=== PATIENT | male | born 1960 | race American Indian/Alaskan Native ===

== ENCOUNTER 2018-06-12 21:42 | Emergency (ER) | payer MEDICARE, MEDICAID, SELFPAY ==
[2018-06-12 22:03] VITALS: BP 121/66; PULSE 86; RESP 16; TEMP 36.9; O2SAT 99
--- NOTE | 2018-06-12 22:17 | ED_ITS ---
HPI - Wound/Laceration General Chief Complaint: Wound/Laceration Stated Complaint: Vericose veins bleeding on right foot Time Seen by Provider: 06/12/18 21:52 Source: patient and EMS Mode of arrival: EMS Limitations: no limitations History of Present Illness HPI narrative: 57-year-old male, former alcohol abuser smoker, morbidly obese with cirrhosis and hypothyroidism presents by EMS for evaluation significant ble eding from a varicosity on his right foot. He uses bandages to protect some of the superficial vessels when he put his feet and tissues. He removed 1 of the bandages and it ripped off the superficial skin causing a significant amount of bleeding. The patient is not anticoagulated but does have a history of liver disease. He is not dizzy nor weak or lightheaded. He has soaked through a significant number of bandages. He has required sutures to close off bleeding vessels in the past. He denies much in the way of pain as he has neuropathy Onset (ago): hour(s) Extremity Location: Right: foot Place: home Patient tetanus UTD: Yes Context: accidental Associated symptoms: none Related Data Home Medications Medication Instructions Recorded Confirmed LOVASTATIN (MEVACOR) 40 mg PO QDAYPM #0 06/22/11 amitriptyline 75 mg PO HS #0 06/22/11 carvedilol [Coreg] 6.25 mg PO BID #0 06/22/11 06/13/18 lisinopril 20 mg PO QDAY #0 06/22/11 potassium chloride [Klor-Con M20] 20 meq PO AMCC #0 06/22/11 06/13/18 furosemide [Lasix] 80 mg PO DAILY #0 08/08/11 06/13/18 lactulose 1 dose PO DIRECTED 06/13/18 06/13/18 levothyroxine 137 mcg PO DAILY 06/13/18 06/13/18 methadone 20 mg PO BEDTIME 06/13/18 06/13/18 morphine 06/13/18 spironolactone 150 mg PO DAILY 06/13/18 06/13/18 triamcinolone acetonide 1 applic TOPICAL DIRECTED 06/13/18 06/13/18 Allergies Allergy/AdvReac Type Severity Reaction Status Date / Time codeine [CODEINE] Allergy Unknown Verified 06/12/18 22:03 Review of Systems Constitutional Denies chills, Denies fever(s), Denies lethargy and Denies weakness Eyes Denies change in vision, Denies eye discharge, Denies irritation and Denies loss of vision ENT Ears, Nose, Mouth, and Throat: Denies change in voice, Denies neck pain and Denies sore throat Cardiovascular Denies chest pain, Denies irregular heart rhythm, Denies lightheadedness, Denies palpitations, Denies dyspnea, Denies dyspnea on exertion and Denies orthopnea Respiratory Denies cough, Denies dyspnea, Denies dyspnea on exertion and Denies wheezing Gastrointestinal Gastrointestinal: Denies abdominal pain, Denies change in bowel habits, Denies diarrhea, Denies nausea and Denies vomiting Genitourinary Denies hematuria, Denies flank pain, Denies urinary incontinence and Denies urinary urgency Musculoskeletal Denies neck pain Integumentary/Breasts Denies pruritus, Denies erythema, Denies rash, Reports sores and Reports wounds Neurologic Denies confusion, Denies loss of vision and Denies weakness Psychiatric Denies anxiety, Denies confusion, Denies depression, Denies homicidal ideation and Denies suicidal ideation Endocrine Denies palpitations Hematologic/Lymphatic Denies easy bruising Allergic/Immunologic Denies wheezing [facility] Medical History Cirrhosis (Acute) Hypothyroid (Acute) Smoker (Acute) Venous stasis dermatitis of both lower extremities (Acute) Social History Smoking Status: Current every day smoker Social History Smoking Status: Current every day smoker Exam Narrative Exam Narrative: GEN: 57-year-old male bit disheveled, morbidly obese and in no obvious or significant distress EYES: Pupils are equal, round, and reactive to light and accommodation. Extraoccular muscles are intact bilaterally. There is no subconjunctival hemorrhage or exudate. CHEST: Lungs are clear to auscultation bilaterally and free of wheezes, rales, or rhonchi. Heart rate is regular rhythm, there are no murmurs, clicks, rubs, or gallops. There is no chest wall tenderness. ABD: Abdomen is soft and nontender. There is no guarding or rebound. Bowel sounds are normal in all 4 quadrants. There is no mass or organomegaly. EXT: Evidence of chronic venous stasis with significant varicosities noted. Patient does have dried area of bleeding on the dorsum of right foot which is currently stopped. SKIN: Warm, pink, and dry. No erythema or rash Initial Vital Signs Initial Vital Signs: Vital Signs Temperature 98.5 F 06/12/18 22:03 Pulse Rate 86 06/12/18 22:03 Respiratory Rate 16 06/12/18 22:03 Blood Pressure 121/66 06/12/18 22:03 Pulse Oximetry 99 06/12/18 22:03 Procedures [facility] [place] Procedure Name of Procedure: Hemostatic suture Side (if applicable): right Location: Dorsum of right foot Technique/Description of procedure performed: One deep biting 2 nylon suture placed and achieve hemostasis after hemostatic gauze fail Course Reevaluation(s) Reevaluation #1: Initially there is very little bleeding noted on exam. It was cleaned and slowly oozing. Hemostatic gauze placed and then dressing wrapped in [place]. He was allowed to rest for approximately 90 minutes and upon ambulating the bleed is started significantly again causing a rather large puddle in the bathroom. At this point a large biting suture (see procedure note) was placed Reevaluation #2: After suture placed the patient was observed again for a period of time and was able to ambulate without recurrence of bleeding. He is discharged with a family member Vital Signs - 8 hr 06/12/18 22:03 Temperature 98.5 F Pulse Rate 86 Respiratory Rate 16 Blood Pressure 121/66 Pulse Oximetry 99 Discharge Plan Departure Patient Disposition: Home Clinical Impression: Bleeding from varicose vein Discharge Date/Time: 06/13/18 00:15 Interventions: ED Discharge Assessment Last Done: 06/13/18 00:14 Instructions: DI for Varicose Veins Activity Restrictions/Additional Instructions: *You have been diagnosed with [bleeding varicosity] *What to do: *Take medications as directed *Follow up with your primary care provider in 2-3 days, call for an appointment. Let them know you were seen in the Emergency Department and that we ask that you be seen in follow up *Return to ER if you should have any new, worsening or concerning symptoms Please keep the wound clean and dry to the best of your ability. Please monitor for signs of infection such as redness to the skin or increasing pain. Have the sutures removed by your doctor in about 7 days. If you are unable to get into your doctor, we would be happy to remove the sutures in that same timeframe. Prescriptions: No Action amitriptyline 75 MG tablet 75 mg PO HS Qty: 0 RF: 0 potassium chloride [Klor-Con M20] 20 MEQ tablet,ER particles/crystals 20 meq PO AMCC Qty: 0 RF: 0 LOVASTATIN (MEVACOR) 40 mg PO QDAYPM Qty: 0 RF: 0 carvedilol [Coreg] 6.25 MG tablet 6.25 mg PO BID Qty: 0 RF: 0 lisinopril 20 MG tablet 20 mg PO QDAY Qty: 0 RF: 0 furosemide [Lasix] 80 MG tablet 80 mg PO DAILY Qty: 0 RF: 0 levothyroxine 137 mcg tablet 137 mcg PO DAILY RF: 0 spironolactone 100 mg tablet 150 mg PO DAILY RF: 0 morphine 30 mg tablet RF: 0 triamcinolone acetonide 0.1 % ointment 1 applic topical DIRECTED RF: 0 lactulose 10 gram/15 mL solution 1 dose PO DIRECTED RF: 0 methadone 10 MG tablet 20 mg PO BEDTIME RF: 0
--- NOTE | 2018-06-12 22:45 | PC.NURSE ---
Bleeding was controlled upon arrival. Pt ambulated to BR and while in BR pts foot began bleeding again. Pt had a large amount of blood on bathroom floor,pt returned to room 4,bleed appeared to be arterial
[2018-06-13 00:14] VITALS: BP 126/79; PULSE 80
== END 2018-06-13 00:15 | disposition home or self-care (01) ==
LOC: ED 23:58
PROVIDERS: Emergency Provider Emergency Medicine
DX: I83.899 Varicose veins of unspecified lower extremity with other complications (principal); S91.301A Unspecified open wound, right foot, initial encounter
CPT/HCPCS: 99282; 99283

== ENCOUNTER 2018-06-13 02:02 | Emergency (ER) | payer MEDICARE, MEDICAID, SELFPAY ==
[2018-06-13 02:10] VITALS: BP 123/67; PULSE 80; RESP 18; TEMP 36.6; O2SAT 97
--- NOTE | 2018-06-13 02:51 | PC.NURSE ---
saw him earlier for same,went home,bleeding starrted again, applied another suture to top of rt foot to control bleeding,denies pain.
--- NOTE | 2018-06-13 02:54 | ED.WOUNDLAC ---
HPI - Wound/Laceration <DO Sawyer Patel Last Filed: 06/13/18 23:49> General Chief Complaint: Wound/Laceration Stated Complaint: bleeding foot Time Seen by Provider: 06/13/18 02:03 Source: patient and family Mode of arrival: EMS History of Present Illness HPI narrative: 57-year-old male returns for a 2nd visit for evaluation of a bleeding artery on right dorsum of his right foot. He was seen and evaluated earlier and had achieved hemostasis after a few deep, biting sutures were placed to. He started bleeding again when he walked about 100 ft from the car to his apartment. He activated EMS for transport. He is not dizzy nor weak or lightheaded. He does not take any blood thinners. Denies chest pain or shortness of breath Onset (ago): hour(s) Extremity Location: Right: foot Place: home Patient tetanus UTD: Yes Associated symptoms: none Related Data Home Medications Medication Instructions Recorded Confirmed LOVASTATIN (MEVACOR) 40 mg PO QDAYPM #0 06/22/11 amitriptyline 75 mg PO HS #0 06/22/11 carvedilol [Coreg] 6.25 mg PO BID #0 06/22/11 06/13/18 lisinopril 20 mg PO QDAY #0 06/22/11 potassium chloride [Klor-Con M20] 20 meq PO AMCC #0 06/22/11 06/13/18 furosemide [Lasix] 80 mg PO DAILY #0 08/08/11 06/13/18 lactulose 1 dose PO DIRECTED 06/13/18 06/13/18 levothyroxine 137 mcg PO DAILY 06/13/18 06/13/18 methadone 20 mg PO BEDTIME 06/13/18 06/13/18 morphine 06/13/18 spironolactone 150 mg PO DAILY 06/13/18 06/13/18 triamcinolone acetonide 1 applic TOPICAL DIRECTED 06/13/18 06/13/18 Allergies Allergy/AdvReac Type Severity Reaction Status Date / Time codeine [CODEINE] Allergy Unknown Verified 06/12/18 22:03 Review of Systems <DO Sawyer Patel Last Filed: 06/13/18 23:49> Constitutional Denies chills, Denies fever(s), Denies lethargy and Denies weakness Eyes Denies change in vision, Denies eye discharge, Denies irritation and Denies loss of vision ENT Ears, Nose, Mouth, and Throat: Denies change in voice, Denies neck pain and Denies sore throat Cardiovascular Denies chest pain, Denies irregular heart rhythm, Denies lightheadedness, Denies palpitations, Denies dyspnea, Denies dyspnea on exertion and Denies orthopnea Respiratory Denies cough, Denies dyspnea, Denies dyspnea on exertion and Denies wheezing Gastrointestinal Gastrointestinal: Denies abdominal pain, Denies change in bowel habits, Denies diarrhea, Denies nausea and Denies vomiting Genitourinary Denies hematuria, Denies flank pain, Denies urinary incontinence and Denies urinary urgency Musculoskeletal Denies neck pain Integumentary/Breasts Denies pruritus, Denies erythema, Denies rash and Reports wounds Neurologic Denies confusion, Denies loss of vision and Denies weakness Psychiatric Denies anxiety, Denies confusion, Denies depression, Denies homicidal ideation and Denies suicidal ideation Endocrine Denies palpitations Hematologic/Lymphatic Denies easy bruising Allergic/Immunologic Denies wheezing PFSH <Donta Zabala DO - Last Filed: 06/13/18 23:49> Medical History (Updated 06/13/18 @ 06:57 by Rashid Gerber MD) Cirrhosis (Acute) Hypothyroid (Acute) Smoker (Acute) Venous stasis dermatitis of both lower extremities (Acute) Social History Smoking Status: Current every day smoker Social History Smoking Status: Current every day smoker Exam <Donta Zabala DO - Last Filed: 06/13/18 23:49> Narrative Exam Narrative: GEN: 57-year-old male, morbidly obese, no significant distress EYES: Pupils are equal, round, and reactive to light and accommodation. Extraoccular muscles are intact bilaterally. There is no subconjunctival hemorrhage or exudate. CHEST: Lungs are clear to auscultation bilaterally and free of wheezes, rales, or rhonchi. Heart rate is regular rhythm, there are no murmurs, clicks, rubs, or gallops. There is no chest wall tenderness. ABD: Abdomen is soft and nontender. There is no guarding or rebound. Bowel sounds are normal in all 4 quadrants. There is no mass or organomegaly. EXT: Wound dressing of right foot saturated in fresh blood. Dressing removed and moderate amount persistent bleeding from the skin wound SKIN: Warm, pink, and dry. No erythema or rash Initial Vital Signs Initial Vital Signs: Vital Signs Temperature 97.9 F 06/13/18 02:10 Pulse Rate 80 06/13/18 02:10 Respiratory Rate 18 06/13/18 02:10 Blood Pressure 123/67 06/13/18 02:10 Pulse Oximetry 97 06/13/18 02:10 <Itzel Liang, DO - Last Filed: 06/13/18 18:59> Initial Vital Signs Initial Vital Signs: Vital Signs Temperature 97.9 F 06/13/18 02:10 Pulse Rate 80 06/13/18 02:10 Respiratory Rate 18 06/13/18 02:10 Blood Pressure 123/67 06/13/18 02:10 Pulse Oximetry 97 06/13/18 02:10 Procedures <Donta Zabala DO - Last Filed: 06/13/18 23:49> [facility] [place] Procedure Name of Procedure: suture for hemostasis only Side (if applicable): right Time out performed: No Technique/Description of procedure performed: 2 large deep sutures placed Patient tolerated procedure: Well Complications: none Additional Comments: hemostasis achieved Course <Donta Zabala DO - Last Filed: 06/13/18 23:49> Orders Ordered: Discontinued Medications Morphine Sulfate (Morphine) 4 mg SUBCUT NOW ONE Stop: 06/13/18 06:43 Last Admin: 06/13/18 06:53 Dose: 4 mg Reevaluation(s) Reevaluation #1: patient allowed to sit with elevated foot for 90 minutes, nearly immediately upon putting foot down and ambulating he began bleeding again. At this point foot was elevated and gen surgery called. Will see patient at bedside Consultations Consultation #1: call to Dr. Munoz. Please see his note for details. Recommends keeping patient foot elevated until 0830 then ambulation trial Consultation #2: call to [facility] to achieve close follow up for hemorrhaging right foot varicosity with multiple thin-walled superficial varicosities. Perico at [facility] is happy to help coordinate close follow up and recommends [place]s or a 3 layer if possible Time: 08:07 Vital Signs - 8 hr 06/13/18 11:01 Pulse Rate 60 Respiratory Rate 16 Blood Pressure 120/73 Pulse Oximetry 93 <Itzel Liang DO - Last Filed: 06/13/18 18:59> Orders Ordered: Discontinued Medications Morphine Sulfate (Morphine) 4 mg SUBCUT NOW ONE Stop: 06/13/18 06:43 Last Admin: 06/13/18 06:53 Dose: 4 mg Vital Signs - 8 hr 06/13/18 11:01 Pulse Rate 60 Respiratory Rate 16 Blood Pressure 120/73 Pulse Oximetry 93 MDM - Wound/Laceration <Donta Zabala DO - Last Filed: 06/13/18 23:49> Lab Data Result diagrams: 06/13/18 04:30 06/13/18 04:30 Lab Results 06/13/18 06/13/18 06/13/18 Range/Units 04:30 04:30 04:30 WBC 10.2 (4.5-11.0) X10^3/uL RBC 4.43 L (4.5-5.9) X10^6/uL Hgb 12.9 L (13.5-17.5) g/dL Hct 38.3 L (41-53) % MCV 86.6 (80-100) fL MCH 29.2 (26-34) PG MCHC 33.7 (30-36) % RDW 15.1 H (11.6-14.8) % Plt Count 188 (150-400) X10^3/uL Neut % (Auto) 83.2 H (50-75) % Lymph % (Auto) 7.0 L (25-40) % [place] % (Auto) 8.8 (3-14) % Eos % (Auto) 0.3 L (2-4) % Baso % (Auto) 0.7 (0-2) % Neut # (Auto) 8500 H (6588-4027) /uL Lymph # (Auto) 700 L (8510-1373) /uL [place] # (Auto) 900 (0-900) /uL Eos # (Auto) 0 (0-450) /uL Baso # (Auto) 100 (0-100) /uL PT 16.3 H (10.1-12.7) SECONDS INR 1.4 H (0.9-1.3) APTT (26.4-36.2) SECONDS Sodium 130 L (137-145) mmol/L Potassium 5.3 H (3.4-5.1) mmol/L Chloride 96 L (98-107) mmol/L Carbon Dioxide 21 L (22-32) mmol/L BUN 23 H (9-20) mg/dL Creatinine 0.80 (0.66-1.25) mg/dL Estimated GFR > 60.0 (>60) mL/min BUN/Creatinine Ratio 28.8 H (6-22) Glucose 103 H (70-100) mg/dL Calcium 9.2 (8.4-10.2) mg/dL Total Bilirubin 1.5 H (0.2-1.3) mg/dL AST 31 (17-59) IU/L ALT 18 L (21-72) IU/L Alkaline Phosphatase 205 H (38-126) U/L Total Protein 8.4 H (6.3-8.2) g/dL Albumin 3.9 (3.5-5.0) g/dL Globulin 4.5 H (1.7-4.1) g/dL Albumin/Globulin Ratio 0.9 L (1.0-2.8) TSH (0.47-4.68) uIU/mL 06/13/18 06/13/18 Range/Units 04:30 05:15 WBC (4.5-11.0) X10^3/uL RBC (4.5-5.9) X10^6/uL Hgb (13.5-17.5) g/dL Hct (41-53) % MCV (80-100) fL MCH (26-34) PG MCHC (30-36) % RDW (11.6-14.8) % Plt Count (150-400) X10^3/uL Neut % (Auto) (50-75) % Lymph % (Auto) (25-40) % [place] % (Auto) (3-14) % Eos % (Auto) (2-4) % Baso % (Auto) (0-2) % Neut # (Auto) (7197-5277) /uL Lymph # (Auto) (9315-2051) /uL [place] # (Auto) (0-900) /uL Eos # (Auto) (0-450) /uL Baso # (Auto) (0-100) /uL PT (10.1-12.7) SECONDS INR (0.9-1.3) APTT 27 (26.4-36.2) SECONDS Sodium (137-145) mmol/L Potassium (3.4-5.1) mmol/L Chloride (98-107) mmol/L Carbon Dioxide (22-32) mmol/L BUN (9-20) mg/dL Creatinine (0.66-1.25) mg/dL Estimated GFR (>60) mL/min BUN/Creatinine Ratio (6-22) Glucose (70-100) mg/dL Calcium (8.4-10.2) mg/dL Total Bilirubin (0.2-1.3) mg/dL AST (17-59) IU/L ALT (21-72) IU/L Alkaline Phosphatase (38-126) U/L Total Protein (6.3-8.2) g/dL Albumin (3.5-5.0) g/dL Globulin (1.7-4.1) g/dL Albumin/Globulin Ratio (1.0-2.8) TSH 13.90 H (0.47-4.68) uIU/mL <Itzel Liang, DO - Last Filed: 06/13/18 18:59> Lab Data Attestation: I reviewed the patient's lab results. Lab Results 06/13/18 06/13/18 06/13/18 Range/Units 04:30 04:30 04:30 WBC 10.2 (4.5-11.0) X10^3/uL RBC 4.43 L (4.5-5.9) X10^6/uL Hgb 12.9 L (13.5-17.5) g/dL Hct 38.3 L (41-53) % MCV 86.6 (80-100) fL MCH 29.2 (26-34) PG MCHC 33.7 (30-36) % RDW 15.1 H (11.6-14.8) % Plt Count 188 (150-400) X10^3/uL Neut % (Auto) 83.2 H (50-75) % Lymph % (Auto) 7.0 L (25-40) % [place] % (Auto) 8.8 (3-14) % Eos % (Auto) 0.3 L (2-4) % Baso % (Auto) 0.7 (0-2) % Neut # (Auto) 8500 H (9311-5661) /uL Lymph # (Auto) 700 L (9675-4386) /uL [place] # (Auto) 900 (0-900) /uL Eos # (Auto) 0 (0-450) /uL Baso # (Auto) 100 (0-100) /uL PT 16.3 H (10.1-12.7) SECONDS INR 1.4 H (0.9-1.3) APTT (26.4-36.2) SECONDS Sodium 130 L (137-145) mmol/L Potassium 5.3 H (3.4-5.1) mmol/L Chloride 96 L (98-107) mmol/L Carbon Dioxide 21 L (22-32) mmol/L BUN 23 H (9-20) mg/dL Creatinine 0.80 (0.66-1.25) mg/dL Estimated GFR > 60.0 (>60) mL/min BUN/Creatinine Ratio 28.8 H (6-22) Glucose 103 H (70-100) mg/dL Calcium 9.2 (8.4-10.2) mg/dL Total Bilirubin 1.5 H (0.2-1.3) mg/dL AST 31 (17-59) IU/L ALT 18 L (21-72) IU/L Alkaline Phosphatase 205 H (38-126) U/L Total Protein 8.4 H (6.3-8.2) g/dL Albumin 3.9 (3.5-5.0) g/dL Globulin 4.5 H (1.7-4.1) g/dL Albumin/Globulin Ratio 0.9 L (1.0-2.8) TSH (0.47-4.68) uIU/mL 06/13/18 06/13/18 Range/Units 04:30 05:15 WBC (4.5-11.0) X10^3/uL RBC (4.5-5.9) X10^6/uL Hgb (13.5-17.5) g/dL Hct (41-53) % MCV (80-100) fL MCH (26-34) PG MCHC (30-36) % RDW (11.6-14.8) % Plt Count (150-400) X10^3/uL Neut % (Auto) (50-75) % Lymph % (Auto) (25-40) % [place] % (Auto) (3-14) % Eos % (Auto) (2-4) % Baso % (Auto) (0-2) % Neut # (Auto) (0798-6444) /uL Lymph # (Auto) (7281-5089) /uL [place] # (Auto) (0-900) /uL Eos # (Auto) (0-450) /uL Baso # (Auto) (0-100) /uL PT (10.1-12.7) SECONDS INR (0.9-1.3) APTT 27 (26.4-36.2) SECONDS Sodium (137-145) mmol/L Potassium (3.4-5.1) mmol/L Chloride (98-107) mmol/L Carbon Dioxide (22-32) mmol/L BUN (9-20) mg/dL Creatinine (0.66-1.25) mg/dL Estimated GFR (>60) mL/min BUN/Creatinine Ratio (6-22) Glucose (70-100) mg/dL Calcium (8.4-10.2) mg/dL Total Bilirubin (0.2-1.3) mg/dL AST (17-59) IU/L ALT (21-72) IU/L Alkaline Phosphatase (38-126) U/L Total Protein (6.3-8.2) g/dL Albumin (3.5-5.0) g/dL Globulin (1.7-4.1) g/dL Albumin/Globulin Ratio (1.0-2.8) TSH 13.90 H (0.47-4.68) uIU/mL MDM Narrative Medical decision making narrative: Patient was ambulated waiting the entire department and standing for about 20 minutes without any recurrence of bleeding. Area was cleansed and an Maribel boot dressing was applied. Patient was given a contact information for the vascular Clinic for follow-up for sclerotherapy and treatment which he is familiar with. He was also given instructions to return if he had any worsening. Patient is comfortable with this plan. We also discussed his lab work and his thyroid. He states he has missed 1 or 2 doses here and there but has been taking it regularly. Discussed to increase his dose and he is supposed to follow up with his physician this week for recheck of all of his labs. Discharge Plan Departure Patient Disposition: Home Clinical Impression: Bleeding from varicose vein Discharge Date/Time: 06/13/18 10:40 Interventions: ED Discharge Assessment Last Done: 06/13/18 11:01 Instructions: DI for Laceration Repair Activity Restrictions/Additional Instructions: *You have been diagnosed with [bleeding varicosity of right foot] *What to do: * continue to take medications as directed *Call V[facility] at [place] today for close follow up. [phone] *Return to ER if you should have any new, worsening or concerning symptoms, such as [ recurrence of bleeding] You thyroid or TSH level is elevated, increase your levothyroxine to 100mcg or two tablets daily and discuss with your physician for recheck of your TSH and to adjust your medications as needed. Prescriptions: No Action amitriptyline 75 MG tablet 75 mg PO HS Qty: 0 RF: 0 potassium chloride [Klor-Con M20] 20 MEQ tablet,ER particles/crystals 20 meq PO AMCC Qty: 0 RF: 0 LOVASTATIN (MEVACOR) 40 mg PO QDAYPM Qty: 0 RF: 0 carvedilol [Coreg] 6.25 MG tablet 6.25 mg PO BID Qty: 0 RF: 0 lisinopril 20 MG tablet 20 mg PO QDAY Qty: 0 RF: 0 furosemide [Lasix] 80 MG tablet 80 mg PO DAILY Qty: 0 RF: 0 levothyroxine 137 mcg tablet 137 mcg PO DAILY RF: 0 spironolactone 100 mg tablet 150 mg PO DAILY RF: 0 morphine 30 mg tablet RF: 0 triamcinolone acetonide 0.1 % ointment 1 applic topical DIRECTED RF: 0 lactulose 10 gram/15 mL solution 1 dose PO DIRECTED RF: 0 methadone 10 MG tablet 20 mg PO BEDTIME RF: 0 Referrals: Kristian Clancy MD [Non-Staff] -
[2018-06-13 03:34] VITALS: BP 105/82; PULSE 93; RESP 20; O2SAT 93
[2018-06-13 04:40] LABS: Add Manual Diff / Slide Review NO; Basophils Absolute Auto 100 /uL (0-100); Basophils Percent Auto 0.7 % (0-2); Eosinophils Absolute Auto 0 /uL (0-450); Eosinophils Percent Auto 0.3 % (2-4); Hematocrit 38.3 % (41-53); Hemoglobin 12.9 g/dL (13.5-17.5); Lymphocytes Absolute Auto 700 /uL (1100-4500); Mean Corpuscular HGB Conc 33.7 % (30-36); Mean Corpuscular Hemoglobin 29.2 PG (26-34); Mean Corpuscular Volume 86.6 fL (80-100); Monocytes Absolute Auto 900 /uL (0-900); Monocytes Percent Auto 8.8 % (3-14); Neutrophils Absolute Auto 8500 /uL (1500-7000); Neutrophils Percent Auto 83.2 % (50-75); Platelet Count 188 X10^3/uL (150-400); Red Blood Cell Count 4.43 X10^6/uL (4.5-5.9); Red Cell Distribution Width 15.1 % (11.6-14.8); White Blood Cell Count 10.2 X10^3/uL (4.5-11.0)
[2018-06-13 04:44] VITALS: BP 104/78; PULSE 81; RESP 20; O2SAT 100
[2018-06-13 04:47] LABS: PTT Partial Thromboplastin Tim 27 SECONDS (26.4-36.2)
[2018-06-13 04:50] LABS: Alanine Aminotransferase 18 IU/L (21-72); Albumin 3.9 g/dL (3.5-5.0); Albumin Globulin Ratio 0.9 (1.0-2.8); Alkaline Phosphatase 205 U/L (38-126); Aspartate Aminotransferase 31 IU/L (17-59); BUN Creatinine Ratio 28.8 (6-22); Bilirubin Total 1.5 mg/dL (0.2-1.3); Blood Urea Nitrogen 23 mg/dL (9-20); Calcium 9.2 mg/dL (8.4-10.2); Carbon Dioxide 21 mmol/L (22-32); Chloride 96 mmol/L (98-107); Estimated Glomerular Filt Rate > 60.0 mL/min (>60); Globulin 4.5 g/dL (1.7-4.1); Glucose 103 mg/dL (70-100); HEMOLYSIS 18 (0-50); Sodium 130 mmol/L (137-145); Total Protein 8.4 g/dL (6.3-8.2)
[2018-06-13 04:52] LABS: INR 1.4 (0.9-1.3); Prothrombin Time 16.3 SECONDS (10.1-12.7)
[2018-06-13 05:24] LABS: Potassium 5.3 mmol/L (3.4-5.1)
[2018-06-13 05:30] VITALS: BP 122/75; PULSE 82
--- NOTE | 2018-06-13 06:30 | PC.NURSE ---
Assisted general surgeon with procedure at pt's bedside. Pt tolerated well.
--- NOTE | 2018-06-13 06:45 | PM.CN ---
History of Present Illness Date Patient Seen: 06/13/18 Time Patient Seen: 06:00 Chief complaint: bleeding foot Reason for consult: persistently bleeding vericosities on dorsal R foot Requesting provider: Donta Zabala Narrative: 57 yo man with hx of morbid obesity, hypothyroidism and etoh cirrhosis no longer active drinker with known hx of chronic LE venous hypertention and marked dialated varicosities of the feet and ankles. He presented to the evening by EMS after a sacular venous salazar/verricosity on the distal aspect of his R doral foot ruptured. He had removed a small bandage that was protecting the area. Bleeding was by report significant. In the ER there was brisk bleeding from what was initially thought to be an arterial source. Attempts at direct pressure were successful but with release of pressure and pt standing upright would restart. Eventually total of 2, 2-0 nylon hemostatic sutures to the area provided control. The pt returned home but several hrs later - restarted bleeding from the same site and returend to the ER. Pt reports he has had multiple vein ruptures in the past - all have spontaneoulsy clotted at home. He did see a vascular surgeon some time ago about his veins but was lost to follow up. He wears compression stockings but is unsure of there pressure amounts, reports they are very tight. [facility] Medical History (Updated 06/13/18 @ 06:57 by Rashid Gerber MD) Cirrhosis (Acute) Hypothyroid (Acute) Smoker (Acute) Venous stasis dermatitis of both lower extremities (Acute) Social History Smoking Status: Current every day smoker Social History Smoking Status: Current every day smoker Meds Home Medications Medication Instructions Recorded Confirmed Type LOVASTATIN (MEVACOR) 40 mg PO QDAYPM #0 06/22/11 History amitriptyline 75 mg PO HS #0 06/22/11 History carvedilol [Coreg] 6.25 mg PO BID #0 06/22/11 History levothyroxine [Synthroid] 0.05 mg PO QDAY #0 06/22/11 History lisinopril 20 mg PO QDAY #0 06/22/11 History potassium chloride [Klor-Con M20] 20 meq PO [facility] #0 06/22/11 History furosemide [Lasix] 100 mg PO QDAY #0 08/08/11 History methadone 10 mg PO QHS #10 08/20/11 Rx Allergies Allergy/AdvReac Type Severity Reaction Status Date / Time codeine [CODEINE] Allergy Unknown Verified 06/12/18 22:03 Review of Systems Constitutional Constitutional: Denies fever(s) Eyes Eyes: Denies bulging eyes ENT Ears, Nose, Mouth, and Throat: No lip swelling Cardiovascular Cardiovascular: Denies generalize swelling Respiratory Respiratory: Denies stridor Gastrointestinal Gastrointestinal: Denies coffee ground emesis Musculoskeletal Musculoskeletal: Denies loss of height Integumentary/Breasts Skin/Breast: Denies wounds Neurologic Neurologic: Denies abnormal speech and Denies confusion Psychiatric Psychiatric: Denies confusion Endocrine Endocrine: Denies deepening of the voice Hematologic/Lymphatic Hematologic/Lymphatic: Denies lymphadenopathy Allergic/Immunologic Allergic/Immunologic: Denies lip swelling Exam Vital Signs (past 8 hours): - 06/13/18 02:10 06/13/18 03:34 06/13/18 04:44 Temperature 97.9 F Pulse Rate 80 93 H 81 Respiratory Rate 18 20 20 Blood Pressure [Right Arm] 123/67 105/82 104/78 Pulse Oximetry 97 93 100 Oxygen Delivery Method Room Air Narrative Exam Narrative: Obese man in NAD, smells of cig smoke. Const General: cooperative and healthy appearing Orientation: alert [facility] Head: normal to inspection Nose: nares normal Mouth: oral mucosae normal and lip normal Eyes Eyelids: eyelids normal Conjunctivae: conjunctivae normal Sclera: sclerae normal Neck Neck: supple and other (No thyromegally) Chest Chest: other (LCTAB , regular respiratory effort) Cardio Rhythm: regular rhythm GI Other: abdomen soft , non tender Skin General: no rashes or lesions noted Neuro General: alert and awake Extrem Other: There are extensive superficial vericose veins of the bilteral LE with reynaldo discoloration of legs and feet below the knees. On the R foot there are extensive dialated veins up to 5mm with thining of the skin over a half dozen venous lakes. Two nylon sutures overly the 3rd ray just proximal of the MTP joint on the dorsum of the R foot. There is a small amount of bleeding with disturbing the area. Palpating the vericosites they are tense. Using US- 4 feeding veins appeared to connect like wheel spokes to the central area of bleeding these were 3-4mm. there was flow by doppler in each Psych Appearance: grossly normal Affect: normal affect Objective Labs Result Diagrams: 06/13/18 04:30 06/13/18 04:30 Labs: Laboratory Results - last 24 hr 06/13/18 06/13/18 06/13/18 04:30 04:30 04:30 WBC 10.2 RBC 4.43 L Hgb 12.9 L Hct 38.3 L MCV 86.6 MCH 29.2 MCHC 33.7 RDW 15.1 H Plt Count 188 Neut % (Auto) 83.2 H Lymph % (Auto) 7.0 L Burke % (Auto) 8.8 Eos % (Auto) 0.3 L Baso % (Auto) 0.7 Neut # (Auto) 8500 H Lymph # (Auto) 700 L Burke # (Auto) 900 Eos # (Auto) 0 Baso # (Auto) 100 PT 16.3 H INR 1.4 H APTT Sodium 130 L Potassium 5.3 H Chloride 96 L Carbon Dioxide 21 L BUN 23 H Creatinine 0.80 Estimated GFR > 60.0 BUN/Creatinine Ratio 28.8 H Glucose 103 H Calcium 9.2 Total Bilirubin 1.5 H AST 31 ALT 18 L Alkaline Phosphatase 205 H Total Protein 8.4 H Albumin 3.9 Globulin 4.5 H Albumin/Globulin Ratio 0.9 L TSH 06/13/18 06/13/18 04:30 05:15 WBC RBC Hgb Hct MCV MCH MCHC RDW Plt Count Neut % (Auto) Lymph % (Auto) Burke % (Auto) Eos % (Auto) Baso % (Auto) Neut # (Auto) Lymph # (Auto) Burke # (Auto) Eos # (Auto) Baso # (Auto) PT INR APTT 27 Sodium Potassium Chloride Carbon Dioxide BUN Creatinine Estimated GFR BUN/Creatinine Ratio Glucose Calcium Total Bilirubin AST ALT Alkaline Phosphatase Total Protein Albumin Globulin Albumin/Globulin Ratio TSH 13.90 H Assessment & Plan Assessment & Plan narrative: 57 yo man with persistently bleeding ruptured varicose vein on the dorsum of the R foot in the setting of mild coagulopathy. Recs: Venous ligation - with 2% lidocaine with epi for anesthesia - I ligated each of the feeding veins to the area of bleeing with a total of 5 figure of 8 surtures. Caprosin 2-0. The venous pressure in the original bleeding vessil was greatly improved by palpation and all bleeding stopped. Wraped RLE below knee in compression bandage. - Should keep elevated for 2hrs then trail of ambulation - Suture removal in 2 weeks PMD - limit activity over next 2 days to allow clot to mature - Referal of pt to vascular surgeon will likely benifit from venous sclerosis/endovascular ablation. Given extensive venous dermatitis would not recommend open vein stripping Pt appears hypothyroid with TSH of nearly 14, hypothyroidism contributes to poor clot formation this in addition to etoh cirrhosis would seem to contribute to pts persitent bleeding - correct hypothyroidism, needs increased levothyroxin dosing
[2018-06-13] MEDS: MORPHINE 4 MG/ML INJ SUBCUT (06:53)
[2018-06-13 09:50] VITALS: BP 121/72; PULSE 84; RESP 18; O2SAT 93
--- NOTE | 2018-06-13 10:49 | PC.NURSE ---
pt dressing paste bandage, kurlexjuan. instructions provided by wound care clinic.
[2018-06-13 11:01] VITALS: BP 120/73; PULSE 60; RESP 16; O2SAT 93
== END 2018-06-13 10:40 | disposition home or self-care (01) ==
PROVIDERS: Emergency Provider Emergency Medicine
DX: I83.899 Varicose veins of unspecified lower extremity with other complications (principal); S91.301A Unspecified open wound, right foot, initial encounter
CPT/HCPCS: 36415; 80053; 84443; 85025; 85610; 85730; 96372; 99283; 99284; J2270

== ENCOUNTER → 2018-07-22 14:35 | Outpatient (CLI) | payer MEDICARE, MEDICAID, SELFPAY ==
--- NOTE | 2018-07-22 | DI.US.S_ITS ---
PROCEDURE: US ABDOMEN COMPLETE INDICATIONS: ALCOHOLIC CIRRHOSIS TECHNIQUE: Real-time scanning was performed of the abdominal and retroperitoneal organs, with image documentation. COMPARISON: [facility], , ABDOMEN COMPLETE, 08/19/2014, 11:32. [facility], US, ABDOMEN LIMITED, 03/31/2015, 14:54. FINDINGS: Liver: Liver is normal in size and homogeneous in echotexture. Liver demonstrates subtle nodular contour consistent with cirrhosis. Gallbladder: There are small gallstones. No gallbladder wall thickening, pericholecystic fluid or sonographic Duque's sign. Biliary ducts: Intrahepatic bile ducts are non-dilated. Extrahepatic bile duct caliber measures 5.7 mm. Normal is 6-7 mm or less in diameter, or 10 mm or less post-cholecystectomy. Pancreas: Obscured by overlying bowel gas. Spleen: Spleen is prominent measuring 13 cm in length. Kidneys: Kidneys are normal in size and echotexture. Right kidney measures 12.2 cm long; left kidney measures 11.2 cm long. No hydronephrosis or nephrolithiasis. No solid masses. Aorta: Abdominal aorta is obscured by overlying bowel gas. Iliacs: Proximal common iliac arteries are obscured by overlying bowel gas. IVC: Intrahepatic inferior vena cava is patent. Miscellaneous: Small to moderate amount of free fluid in the right abdomen. IMPRESSION: 1. Liver demonstrates subtle nodular contour consistent with cirrhosis. 2. Cholelithiasis with multiple small mobile stones. 3. Mild splenomegaly. 4. A small to moderate amount of ascites. 5. Pancreas, aorta and iliac arteries are obscured by overlying bowel gas. Dictated by: Kory Kiser M.D. on 07/22/2018 at 16:04 Approved by: Kory Kiser M.D. on 07/22/2018 at 16:09
== END ==
PROVIDERS: PCP Internal Medicine; Visit Provider Internal Medicine
DX: K70.31 Alcoholic cirrhosis of liver with ascites (principal); K80.20 Calculus of gallbladder without cholecystitis without obstruction; R16.1 Splenomegaly, not elsewhere classified
CPT/HCPCS: 76700

== ENCOUNTER 2019-02-13 11:18 | Inpatient (IN) | payer MEDICARE, SELFPAY ==
[2019-02-13] VITALS (28 sets, daily range): BP systolic 78–123; BP diastolic 49–76; PULSE 80–93; RESP 11–22; TEMP 36.7–37; O2SAT 90–100; BMI 22.1
--- NOTE | 2019-02-13 11:44 | DI.RAD.S_ITS ---
PROCEDURE: XR CHEST 1V INDICATIONS: suspected sepsis TECHNIQUE: One view of the chest was acquired. COMPARISON: [facility], , CHEST 2 VIEW, 06/22/2011, 10:46. FINDINGS: Surgical changes and devices: None. Lungs and pleura: Large right pneumothorax. No contralateral mediastinal shift. No gross pulmonary infiltrates. Mediastinum: Mediastinal contours appear normal. Heart size is normal. Bones and chest wall: No suspicious bony lesions. Overlying soft tissues appear unremarkable. IMPRESSION: Large right pneumothorax. Comment: Findings were discussed with Itzel Randle FIGURE REFINISHER AND REPAIRER on 02/13/19 at 1308 hrs. Dictated by: Rj Stevenson M.D. on 02/13/2019 at 13:06 Approved by: Rj Stevenson M.D. on 02/13/2019 at 13:09
--- NOTE | 2019-02-13 12:28 | PC.NURSE ---
very strong odor from lower legs, drsg on saturated, pt lower leg with swelling, discoloration,swelling, buttom of left heel, ischemic (black), irrigated with large amount of warm saline, scrubbed pt claims +feeling , and pt able to wiggle all the toes. right hip with purple bruising, pt states, he has fallen buttocks with open skin red swelling, also with scoriated skin, left buttocks with large area of purple blackish bruisind. thoracic area with bruising pt cooperative with care.
--- NOTE | 2019-02-13 12:33 | PC.NURSE ---
3 staff assist with undressing, cleaning the whole body and new sheet,gown,warm blankets.
--- NOTE | 2019-02-13 13:00 | ED_ITS ---
HPI - Chest Pain General Chief Complaint: Chest Pain Stated Complaint: Chest Pain Time Seen by Provider: 02/13/19 12:42 Source: EMS Mode of arrival: EMS Limitations: no limitations History of Present Illness HPI narrative: This is a 58-year-old male comes to the emergency department with complaint of chest pain that started about 10:30 this morning he states almost gone. So states he woke up in a cold sweat knee felt very short of breath. He felt a little lightheaded but no syncope. Patient states he did have any coughing, had no fevers or chills no cold cough or congestion. He states that sitting in the emergency department he feels fine. No nausea, no vomiting no issues with bowel movements or urination. Fever. Patient has extensive swelling and skin changes in his lower extremities. He states that they've been bad for a while. He states the left leg is worse than the right. Patient states he follows with Dr. cameron but he left the area and has not reestablished. He has a history of COPD states no home O2. Congestive heart failure and cirrhosis secondary to alcohol. Patient states he quit drinking alcohol in 2008. He denies any hypertension dyslipidemia diabetes. No thinners. States he has had a back surgery in the past. He describes some tobacco use, occasional THC but no other illicit. He lives at home with his niece and nephew and has had multiple falls recently. Patient states he has been taking his medications regularly although his primary care has left. Related Data Home Medications Medication Instructions Recorded Confirmed carvedilol [Coreg] 6.25 mg PO BID #0 06/22/11 02/13/19 furosemide [Lasix] 80 mg PO DAILY #0 08/08/11 02/13/19 lactulose 1 dose PO DIRECTED 06/13/18 02/13/19 levothyroxine 137 mcg PO DAILY 06/13/18 02/13/19 methadone 10 mg PO Q12H 06/13/18 02/13/19 morphine 15 mg PO Q8H PRN 06/13/18 02/13/19 spironolactone 200 mg PO DAILY 06/13/18 02/13/19 triamcinolone acetonide 1 applic TOPICAL DIRECTED 06/13/18 02/13/19 Allergies Allergy/AdvReac Type Severity Reaction Status Date / Time codeine [CODEINE] Allergy Unknown Verified 02/13/19 12:22 Review of Systems Review of Systems ROS Unobtainable: All systems reviewed & are unremarkable except as noted in HPI and below Patient History Medical History Cirrhosis (Acute) Hypothyroid (Acute) Smoker (Acute) Venous stasis dermatitis of both lower extremities (Acute) Social History household members: family Smoking Status: Current every day smoker Smoking Status: Current every day smoker alcohol intake frequency: holidays/special occasions only Substance Use Type: marijuana Exam Narrative Exam Narrative: GEN: Disheveled male appears older than his stated age, alert and oriented x 3, patient appears to be in mild distress. HEENT: Atraumatic, pupils are equal round reactive to light, extraocular movements are intact, nares are clear. HEART: Regular rate and rhythm without murmur, clicks, rubs. No carotid bruits, pulses are equal in upper and lower extremities LUNGS:Lungs are decreased on the right, no wheezes, rales, crackles, chest moves symmetrically, tachypnea or accessory muscle use. ABD:bowel sounds normal, soft, non-tender, no guarding, rebound, rigidity, no masses noted, no hepatosplenomegaly :No CVA tenderness MSCL: Patient has extensive swelling in bilateral lower extremities with erythema extending from about mid calf down. Patient has hyperkeratotic skin that is very thick. NEURO:CN 2-12 intact, sensation normal. SKIN: see above. Initial Vital Signs Initial Vital Signs: Vital Signs Temperature 98.0 F 02/13/19 10:46 Pulse Rate 89 02/13/19 10:46 Respiratory Rate 18 02/13/19 10:46 Pulse Oximetry 90 L 02/13/19 10:46 Procedures Procedural Sedation Patient Age: Patient is 5yrs or older Consent signed: Yes Time out performed: Yes Indication: other (rachael pneumothorax kit placed) ASA Class: III Mallampati Airway Classification: Class II Time of Last PO Intake: 10:30 Preparation: etcher machine applied, pulse oximeter, capnometry used, supplemental O2 applied, suction/airway equipment at bedside and IV secured Ketamine: IV Ketamine dose (mg): 90 ED Sedation Level: Moderate (Concious) Patient Tolerated Procedure: Well Complications: none Course Orders Ordered: ED Orders 02/13/19 11:44 XR chest 1V Stat RT Consult Eval and Treat Now 02/13/19 13:00 BNP [B Type Natriuretic Peptide] Stat Complete Blood Count AUTO DIFF Stat Comprehensive Metabolic Panel Stat Lactate (Lactic Acid) Stat Lipase Stat Partial Thromboplastin Time Stat Procalcitonin Stat Prothrombin Time INR Stat 02/13/19 13:10 Blood Culture Stat 02/13/19 14:04 CXR [XR chest 1V] Stat Carvedilol (Coreg) 6.25 mg PO BID [facility] Furosemide (Lasix) 80 mg PO DAILY [facility] Heparin Sodium (Porcine) (Heparin) 5,000 unit SUBCUT BID [facility] Sodium Chloride (Normal Saline 0.9%) 1,000 mls @ 150 mls/hr IV BOLUS ONE Stop: 02/13/19 21:18 Last Infusion: 02/13/19 17:38 Dose: 0 mls/hr Documented by: Infusion: 02/13/19 16:02 Dose: 150 mls/hr Documented by: Admin: 02/13/19 14:45 Dose: 150 mls/hr Documented by: DOMINICK Lactulose (Enulose) 10 gm PO TID [facility] Levothyroxine Sodium (Synthroid) 137 mcg PO DAILY [facility] Methadone HCl (Methadone) 10 mg PO Q12H DANGELO Morphine Sulfate (Morphine Ir) 15 mg PO Q6HR PRN PRN Reason: Pain, Severe (7-10) Last Admin: 02/13/19 17:19 Dose: 15 mg Documented by: GEETHA Morphine Sulfate (Morphine) 2 mg IV Q2HR PRN PRN Reason: Breakthrough Pain Last Admin: 02/13/19 17:41 Dose: 2 mg Documented by: EGETHA Naloxone HCl (Narcan) 0.2 mg IV Q2MIN PRN PRN Reason: Opiate Reversal Nicotine (Nicoderm) 7 mg TOP DAILY [facility] Spironolactone (Aldactone) 200 mg PO DAILY [facility] Triamcinolone Acetonide (Kenalog 0.1% Oint) 1 applic TOP BID DANGELO Discontinued Medications Sodium Chloride (Normal Saline 0.9%) 1,000 mls @ 1,000 mls/hr IV BOLUS ONE Stop: 02/13/19 12:43 Last Infusion: 02/13/19 14:30 Dose: 0 mls/hr Documented by: Admin: 02/13/19 13:30 Dose: 1,000 mls/hr Documented by: DOMINICK Ketamine HCl (Ketalar) 90 mg 1 mg/kg (90 mg) IV NOW ONE Stop: 02/13/19 13:38 Last Admin: 02/13/19 13:52 Dose: 90 mg Documented by: DOMINICK Lidocaine HCl (Xylocaine 2%) 20 ml INJ INTRA-OP ONE Stop: 02/13/19 13:33 Last Admin: 02/13/19 18:34 Dose: Not Given Documented by: GEETHA Lidocaine/Sodium Bicarbonate (Buffered Lidocaine 10 Ml Syr) 10 ml INJ NOW ONE Stop: 02/13/19 13:33 Last Admin: 02/13/19 13:53 Dose: 10 ml Documented by: DOMINICK Triamcinolone Acetonide (Kenalog 0.1% Oint) 1 applic TOP DIRECTED DANGELO Vital Signs Vital signs: Vital Signs - 8 hr 02/13/19 11:20 02/13/19 12:35 02/13/19 13:13 Temperature 98.0 F Pulse Rate 89 84 89 Respiratory Rate 18 15 18 Blood Pressure [Left Arm] 78/53 L 89/60 L Pulse Oximetry 90 L 94 96 02/13/19 13:21 02/13/19 13:30 02/13/19 13:39 Temperature Pulse Rate 92 H 89 89 Respiratory Rate 22 20 17 Blood Pressure [Left Arm] 96/62 84/62 L 84/62 L Pulse Oximetry 98 97 99 02/13/19 13:50 02/13/19 13:55 02/13/19 14:00 Temperature Pulse Rate 87 85 92 H Respiratory Rate 16 16 16 Blood Pressure [Left Arm] 92/65 90/56 L 89/58 L Pulse Oximetry 100 100 02/13/19 14:01 02/13/19 14:06 02/13/19 14:15 Temperature Pulse Rate 91 H 91 H 80 Respiratory Rate 15 11 L 16 Blood Pressure [Left Arm] 108/72 100/68 78/55 L Pulse Oximetry 100 100 99 02/13/19 14:17 02/13/19 14:20 02/13/19 14:24 Temperature Pulse Rate 80 86 Respiratory Rate 18 20 Blood Pressure [Left Arm] 86/55 L 85/64 L Pulse Oximetry 100 100 100 02/13/19 14:25 02/13/19 14:30 02/13/19 14:35 Temperature Pulse Rate 85 80 83 Respiratory Rate 19 14 15 Blood Pressure [Left Arm] 87/49 L 89/55 L 101/71 Pulse Oximetry 100 100 100 02/13/19 14:50 Temperature Pulse Rate 87 Respiratory Rate 14 Blood Pressure [Left Arm] 123/76 Pulse Oximetry 100 MDM - Chest Pain Lab Data Attestation: I reviewed the patient's lab results. Result diagrams: 02/13/19 13:00 02/13/19 13:00 Labs: Lab Results 02/13/19 02/13/19 02/13/19 Range/Units 13:00 13:00 13:00 WBC 17.4 H (4.5-11.0) X10^3/uL RBC 4.19 L (4.5-5.9) X10^6/uL Hgb 12.1 L (13.5-17.5) g/dL Hct 36.1 L (41-53) % MCV 86.2 (80-100) fL MCH 28.8 (26-34) PG MCHC 33.5 (30-36) % RDW 14.2 (11.6-14.8) % Plt Count 307 (150-400) X10^3/uL Neut % (Auto) 91.5 H (50-75) % Lymph % (Auto) 2.6 L (25-40) % [place] % (Auto) 4.3 (3-14) % Eos % (Auto) 0.5 L (2-4) % Baso % (Auto) 1.1 (0-2) % Neut # (Auto) 59725 H (0365-1859) /uL Lymph # (Auto) 500 L (2516-4476) /uL [place] # (Auto) 700 (0-900) /uL Eos # (Auto) 100 (0-450) /uL Baso # (Auto) 200 H (0-100) /uL PT 16.0 H (10.1-12.7) SECONDS INR 1.4 H (0.9-1.3) APTT 31 D (26.4-36.2) SECONDS Sodium (137-145) mmol/L Potassium (3.4-5.1) mmol/L Chloride (98-107) mmol/L Carbon Dioxide (22-32) mmol/L BUN (9-20) mg/dL Creatinine (0.66-1.25) mg/dL Estimated GFR (>60) mL/min BUN/Creatinine Ratio (6-22) Glucose (70-100) mg/dL Lactate (0.7-2.1) mmol/L Calcium (8.4-10.2) mg/dL Total Bilirubin (0.2-1.3) mg/dL AST (17-59) IU/L ALT (<50) IU/L Alkaline Phosphatase (38-126) U/L B-Natriuretic Peptide (<100) Total Protein (6.3-8.2) g/dL Albumin (3.5-5.0) g/dL Globulin (1.7-4.1) g/dL Albumin/Globulin Ratio (1.0-2.8) Lipase (23-300) U/L Procalcitonin 0.16 (<0.5) ng/mL 02/13/19 02/13/19 02/13/19 Range/Units 13:00 13:00 13:00 WBC (4.5-11.0) X10^3/uL RBC (4.5-5.9) X10^6/uL Hgb (13.5-17.5) g/dL Hct (41-53) % MCV (80-100) fL MCH (26-34) PG MCHC (30-36) % RDW (11.6-14.8) % Plt Count (150-400) X10^3/uL Neut % (Auto) (50-75) % Lymph % (Auto) (25-40) % [place] % (Auto) (3-14) % Eos % (Auto) (2-4) % Baso % (Auto) (0-2) % Neut # (Auto) (7524-7969) /uL Lymph # (Auto) (6682-9207) /uL [place] # (Auto) (0-900) /uL Eos # (Auto) (0-450) /uL Baso # (Auto) (0-100) /uL PT (10.1-12.7) SECONDS INR (0.9-1.3) APTT (26.4-36.2) SECONDS Sodium 126 L (137-145) mmol/L Potassium 4.3 (3.4-5.1) mmol/L Chloride 91 L (98-107) mmol/L Carbon Dioxide 25 (22-32) mmol/L BUN 19 (9-20) mg/dL Creatinine 1.00 (0.66-1.25) mg/dL Estimated GFR > 60.0 (>60) mL/min BUN/Creatinine Ratio 19.0 (6-22) Glucose 81 (70-100) mg/dL Lactate 2.3 H (0.7-2.1) mmol/L Calcium 8.6 (8.4-10.2) mg/dL Total Bilirubin 2.5 H (0.2-1.3) mg/dL AST 27 (17-59) IU/L ALT 14 (<50) IU/L Alkaline Phosphatase 201 H (38-126) U/L B-Natriuretic Peptide 268 H (<100) Total Protein 7.7 (6.3-8.2) g/dL Albumin 3.0 L (3.5-5.0) g/dL Globulin 4.7 H (1.7-4.1) g/dL Albumin/Globulin Ratio 0.6 L (1.0-2.8) Lipase 73 (23-300) U/L Procalcitonin (<0.5) ng/mL Imaging Data Chest x-ray: Radiologist's Impression: [address] [id number] XRay Report Signed Patient: Delvin Parkinson [facility]#: [id number] : 1Acct:[id number] Age/Sex: 58 / MDate of Service: 02/13/19 Loc: ED Accession Number: [id number] Procedure: XR chest 1V Ordering Provider: Itzel Randle PROCEDURE: XR CHEST 1V INDICATIONS: suspected sepsis TECHNIQUE: One view of the chest was acquired. COMPARISON: [facility], , CHEST 2 VIEW, 06/22/2011, 10:46. FINDINGS: Surgical changes and devices: None. Lungs and pleura: Large right pneumothorax. No contralateral mediastinal shift. No gross pulmonary infiltrates. Mediastinum: Mediastinal contours appear normal. Heart size is normal. Bones and chest wall: No suspicious bony lesions. Overlying soft tissues appear unremarkable. IMPRESSION: Large right pneumothorax. Comment: Findings were discussed with Itzel ORTIZP on 02/13/19 at 1308 hrs. Dictated by: Rj Stevenson M.D. on 02/13/2019 at 13:06 Approved by: Rj Stevenson M.D. on 02/13/2019 at 13:09 chest #2: Radiologist's Impression: [address] [id number] XRay Report Signed Patient: Delvin Parkinson [facility]#: [id number] : 1Acct:[id number] Age/Sex: 58 / MDate of Service: 02/13/19 Loc: ED Accession Number: [id number] Procedure: XR chest 1V Ordering Provider: Itzel Liang D.O. PROCEDURE: XR CHEST 1V INDICATIONS: post rachael pneumothorax valve TECHNIQUE: One view of the chest was acquired. COMPARISON: [facility], CR, XR CHEST 1V, 02/13/2019, 12:31. FINDINGS: Surgical changes and devices: Right chest pigtail drain. Lungs and pleura: Platelike atelectasis projects in the right midlung. Elsewhere, no focal consolidation. Elsewhere, scattered subsegmental scarring/atelectasis. No pleural effusions or pneumothorax. Mediastinum: Mediastinal contours appear normal. Heart size is normal. Bones and chest wall: No suspicious bony lesions. Overlying soft tissues appear unremarkable. IMPRESSION: Scattered atelectasis, with platelike appearance of the right midlung. Elsewhere, no focal consolidation No pneumothorax, status post placement of right chest pigtail drain. Dictated by: Salbador Barrientos M.D. on 02/13/2019 at 14:51 Approved by: Salbador Barrientos M.D. on 02/13/2019 at 14:53 ECG Data Attestation: I personally reviewed and interpreted this ECG as follows: Prior ECG tracings: available for review Interpretation: Unable to visualize regular P waves but patient has a regular atrial right. No ST elevation or depression appreciated. Patient prior EKG from 05/26/2017 shows AFib. MDM Narrative Medical decision making narrative: Patient comes in on chest x-ray has a large pneumothorax patient had a several days ago and has had multiple falls intermittently but was not having any chest pain until suddenly at 10:30 a.m. today. Spoke with General surgery and Dr. Pandya saw the patient in the department and placed away pneumothorax. With my and self at bedside for proc edural sedation. Patient tolerated the procedure well. He has significant swelling, venous stasis changes and possibly cellulitis bilateral lower extremities. There's foul odor quite a bit of weeping. Patient does have a white count, lactate is elevated but this could be secondary to stress from his large pneumothorax and hypoxia when he initially arrived. Procalcitonin is 0.16 when I spoke with Dr. Glaser. He will evaluate the patient to make final decision about antibiotics. He does except for admission with General surgery to consult and manage patient's on Rachael chest tube. Patient has multiple lab abnormalities. Anemia, INR 1.4, hyponatremia of 126 with a chloride of 96 otherwise normal electrolytes and renal function. Bilirubin is 2.5 in was 1.5 in June of 2018. Patient's other LFTs appear to be fairly consistent with prior to BNP is 268. Critical Care Time Critical Care Time Critical Care Time: Yes Total Critical Care Time: 90 Attestation: The high probability of a clinically significant, sudden or life threatening d eterioration of the [cardiac/pulm] system(s) required my full and direct attention, intervention and personal management. The aggregate critical care time was [90] minutes. This time is in addition to time spent performing reported procedures but includes the following: [x] Data Review and interpretation xPatient assessment and monitoring of vital signs [x] Documentation x[] Medication orders and management Discharge Plan Departure Patient Disposition: Admitted As Inpatient Clinical Impression: Pneumothorax, Bilateral cellulitis of lower leg, Bilateral lower extremity edema Discharge Date/Time: 02/13/19 16:02 Admit Date/Time: 02/13/19 15:07 Admit Provider: Jose Glaser
[2019-02-13 13:26] LABS: Add Manual Diff / Slide Review NO; Basophils Absolute Auto 200 /uL (0-100); Basophils Percent Auto 1.1 % (0-2); Eosinophils Absolute Auto 100 /uL (0-450); Eosinophils Percent Auto 0.5 % (2-4); Hematocrit 36.1 % (41-53); Hemoglobin 12.1 g/dL (13.5-17.5); Lymphocytes Absolute Auto 500 /uL (1100-4500); Lymphocytes Percent Auto 2.6 % (25-40); Mean Corpuscular HGB Conc 33.5 % (30-36); Mean Corpuscular Hemoglobin 28.8 PG (26-34); Mean Corpuscular Volume 86.2 fL (80-100); Monocytes Absolute Auto 700 /uL (0-900); Monocytes Percent Auto 4.3 % (3-14); Neutrophils Absolute Auto 15900 /uL (1500-7000); Neutrophils Percent Auto 91.5 % (50-75); Platelet Count 307 X10^3/uL (150-400); Red Blood Cell Count 4.19 X10^6/uL (4.5-5.9); Red Cell Distribution Width 14.2 % (11.6-14.8); White Blood Cell Count 17.4 X10^3/uL (4.5-11.0)
[2019-02-13] MEDS: SODIUM CHLORIDE 0.9% 1,000 ML 1000 ML IV (13:30)
[2019-02-13 13:36] LABS: INR 1.4 (0.9-1.3)
[2019-02-13 13:38] LABS: Lactate (Lactic Acid) 2.3 mmol/L (0.7-2.1); PTT Partial Thromboplastin Tim 31 SECONDS (26.4-36.2)
[2019-02-13 13:41] LABS: Alanine Aminotransferase 14 IU/L (<50); Albumin Globulin Ratio 0.6 (1.0-2.8); Alkaline Phosphatase 201 U/L (38-126); Aspartate Aminotransferase 27 IU/L (17-59); Bilirubin Total 2.5 mg/dL (0.2-1.3); Blood Urea Nitrogen 19 mg/dL (9-20); Calcium 8.6 mg/dL (8.4-10.2); Carbon Dioxide 25 mmol/L (22-32); Chloride 91 mmol/L (98-107); Estimated Glomerular Filt Rate > 60.0 mL/min (>60); Globulin 4.7 g/dL (1.7-4.1); Glucose 81 mg/dL (70-100); HEMOLYSIS < 15 (0-50); Lipase 73 U/L (23-300); Potassium 4.3 mmol/L (3.4-5.1); Sodium 126 mmol/L (137-145); Total Protein 7.7 g/dL (6.3-8.2)
[2019-02-13 13:50] LABS: B Type Natriuretic Peptide 268 (<100)
[2019-02-13] MEDS: KETAMINE 500 MG/5 ML INJ 90 MG IV (13:52)
[2019-02-13] MEDS: LIDO 1%/SOD BICARB 8.4% (10ML) 10 ML SYRINGE INJ (13:53)
[2019-02-13 13:57] LABS: Procalcitonin 0.16 ng/mL (<0.5)
--- NOTE | 2019-02-13 14:04 | DI.RAD.S_ITS ---
PROCEDURE: XR CHEST 1V INDICATIONS: post rachael pneumothorax valve TECHNIQUE: One view of the chest was acquired. COMPARISON: [facility], CR, XR CHEST 1V, 02/13/2019, 12:31. FINDINGS: Surgical changes and devices: Right chest pigtail drain. Lungs and pleura: Platelike atelectasis projects in the right midlung. Elsewhere, no focal consolidation. Elsewhere, scattered subsegmental scarring/atelectasis. No pleural effusions or pneumothorax. Mediastinum: Mediastinal contours appear normal. Heart size is normal. Bones and chest wall: No suspicious bony lesions. Overlying soft tissues appear unremarkable. IMPRESSION: Scattered atelectasis, with platelike appearance of the right midlung. Elsewhere, no focal consolidation No pneumothorax, status post placement of right chest pigtail drain. Dictated by: Salbador Barrientos M.D. on 02/13/2019 at 14:51 Approved by: Salbador Barrientos M.D. on 02/13/2019 at 14:53
--- NOTE | 2019-02-13 14:23 | PC.NURSE ---
s/p c utpt 1020 [facility] by surgeon.
--- NOTE | 2019-02-13 14:36 | P.CONS_ITS ---
History of Present Illness Consult details Date Patient Seen: 02/13/19 Time Patient Seen: 14:37 Chief complaint: Chest Pain Reason for consult: pneumothorax Narrative: This is a 58-year-old man with multiple medical problems who came into the ER because of pain in the right side of his chest since around 10:00 a.m. this morning. In the ER he was found to have a large pneumothorax on his chest x-ray, and was short of breath as well as hypotensive. He was mentating well, and his oxygen saturation improved on non-rebreather. I was called to put in a chest tube. Meds Home Medications and Allergies Home Medications Medication Instructions Recorded Confirmed Type carvedilol [Coreg] 6.25 mg PO BID #0 06/22/11 02/13/19 History furosemide [Lasix] 80 mg PO DAILY #0 08/08/11 02/13/19 History lactulose 1 dose PO DIRECTED 06/13/18 02/13/19 History levothyroxine 137 mcg PO DAILY 06/13/18 02/13/19 History methadone 10 mg PO Q12H 06/13/18 02/13/19 History morphine 15 mg PO Q8H PRN 06/13/18 02/13/19 History spironolactone 200 mg PO DAILY 06/13/18 02/13/19 History triamcinolone acetonide 1 applic TOPICAL DIRECTED 06/13/18 02/13/19 History Allergies Allergy/AdvReac Type Severity Reaction Status Date / Time codeine [CODEINE] Allergy Unknown Verified 02/13/19 12:22 Exam Vital Signs (past 8 hours): - 02/13/19 10:46 02/13/19 11:20 02/13/19 12:35 Temperature 98.0 F 98.0 F Pulse Rate 89 89 84 Respiratory Rate 18 18 15 Blood Pressure [Left Arm] 78/53 L 89/60 L Pulse Oximetry 90 L 90 L 94 02/13/19 13:13 02/13/19 13:21 02/13/19 13:30 Temperature Pulse Rate 89 92 H 89 Respiratory Rate 18 22 20 Blood Pressure [Left Arm] 96/62 84/62 L Pulse Oximetry 96 98 97 02/13/19 13:39 02/13/19 13:50 02/13/19 13:55 Temperature Pulse Rate 89 87 85 Respiratory Rate 17 16 16 Blood Pressure [Left Arm] 84/62 L 92/65 90/56 L Pulse Oximetry 99 100 02/13/19 14:01 02/13/19 14:06 02/13/19 14:17 Temperature Pulse Rate 91 H 91 H Respiratory Rate 15 11 L Blood Pressure [Left Arm] 108/72 100/68 Pulse Oximetry 100 100 100 02/13/19 14:24 02/13/19 14:30 Temperature Pulse Rate 86 84 Respiratory Rate 20 19 Blood Pressure [Left Arm] 85/64 L 87/49 L Pulse Oximetry 100 100 Oxygen Delivery Method Nasal Cannula Oxygen Flow Rate 2.5 Narrative Exam Narrative: GENERAL: Alert, appears much older than stated age, alert, cooperative. Answers questions promptly and appropriately. Vital signs noted. HENT: Normocephalic, atraumatic. Hearing intact. Oral mucosa is pink and moist. EYES: Conjunctiva pink, sclera white, no periorbital swelling. CARDIOVASCULAR: Regular rate. Severe lower extremity edema bilaterally; hypotensive with systolic blood pressures in the 80s to 90s RESPIRATORY: + tachypneic, able to speak, but short of breath, on non-rebreather GASTROINTESTINAL: Abdomen soft and non-distended GENITALURINARY: No flank tenderness. MUSCULOSKELETAL: Equal tone and mass bilaterally. SKIN: Severe venous stasis disease and affecting bilateral lower extremities NEURO: Alert and Oriented X 3 PSYCH: Appropriate affect and mood. Objective Imaging Chest x-ray: My impression: Pre procedure chest x-ray: Large right pneumothorax without mediastinal shift Postprocedure chest x-ray: Re-expanded right lung, with pigtail inside the pleural cavity Labs Result Diagrams: 02/13/19 13:00 02/13/19 13:00 Labs: Laboratory Results - last 24 hr 02/13/19 02/13/19 02/13/19 13:00 13:00 13:00 WBC 17.4 H RBC 4.19 L Hgb 12.1 L Hct 36.1 L MCV 86.2 MCH 28.8 MCHC 33.5 RDW 14.2 Plt Count 307 Neut % (Auto) 91.5 H Lymph % (Auto) 2.6 L [place] % (Auto) 4.3 Eos % (Auto) 0.5 L Baso % (Auto) 1.1 Neut # (Auto) 90[address] H Lymph # (Auto) 500 L [place] # (Auto) 700 Eos # (Auto) 100 Baso # (Auto) 200 H PT 16.0 H INR 1.4 H APTT 31 D Sodium Potassium Chloride Carbon Dioxide BUN Creatinine Estimated GFR BUN/Creatinine Ratio Glucose Lactate Calcium Total Bilirubin AST ALT Alkaline Phosphatase B-Natriuretic Peptide Total Protein Albumin Globulin Albumin/Globulin Ratio Lipase Procalcitonin 0.16 02/13/19 02/13/19 02/13/19 13:00 13:00 13:00 WBC RBC Hgb Hct MCV MCH MCHC RDW Plt Count Neut % (Auto) Lymph % (Auto) [place] % (Auto) Eos % (Auto) Baso % (Auto) Neut # (Auto) Lymph # (Auto) [place] # (Auto) Eos # (Auto) Baso # (Auto) PT INR APTT Sodium 126 L Potassium 4.3 Chloride 91 L Carbon Dioxide 25 BUN 19 Creatinine 1.00 Estimated GFR > 60.0 BUN/Creatinine Ratio 19.0 Glucose 81 Lactate 2.3 H Calcium 8.6 Total Bilirubin 2.5 H AST 27 ALT 14 Alkaline Phosphatase 201 H B-Natriuretic Peptide 268 H Total Protein 7.7 Albumin 3.0 L Globulin 4.7 H Albumin/Globulin Ratio 0.6 L Lipase 73 Procalcitonin Assessment & Plan Assessment and plan (1) Pneumothorax: Current visit: Yes Status: Acute (2) Hypotension: Current visit: Yes Status: Acute (3) Leukocytosis: Current visit: Yes Status: Acute (4) Tachypnea: Current visit: Yes Status: Acute (5) Venous stasis dermatitis of both lower extremities: Current visit: No Status: Acute (6) Smoker: Current visit: No Status: Acute (7) Hypothyroid: Current visit: No Status: Acute (8) Cirrhosis: Current visit: No Status: Acute Assessment & Plan narrative: This is a 58-year-old man with multiple medical problems who came in with chest pain and was found to have a large pneumothorax on the right. Risks and benefits of the procedure were discussed with the patient including risk of bleeding, infection, damage to the lung or other nearby structures, chronic scarring chronic pain, need for additional surgical procedures or transfer to a tertiary hospital. The patient desires to proceed with the chest tube placement procedure. 38 minutes were spent face to face with the patient. More than 50% of the time was spent in counseling and co-ordination of care regarding chest tube placement, other medical problems, follow-up chest x-ray, risks and benefits of the procedure, expectations for postop care. Recommendations: Urgent placement of a right-sided chest tube for re-expansion of the lung Follow-up chest x-ray Inpatient management of chest tube another medical problems Inpatient: Daily chest x-ray Incentive spirometry Chest tube management by general surgery service Time Spent With Patient Time with patient: Greater than 35 minutes
[2019-02-13] MEDS: SODIUM CHLORIDE 0.9% 1,000 ML 150 ML IV (14:45)
--- NOTE | 2019-02-13 14:47 | PM.OP.1 ---
Operative Date/Time/Diagnoses Date of procedure: 02/13/19 Time of procedure: 14:48 Pre-op diagnosis: Right pneumothorax with hypotension and respiratory decompensation Post-op diagnosis: same Procedure & Clinicians Procedure: Emergency right tube thoracostomy Same procedure as scheduled: Yes Indications: This is a 50-year-old man who came into the ER with chest pain and was found to have a large pneumothorax on the right side of his chest. He was tachypneic and hypotensive necessitating emergency intervention for re-expansion of his lung. Surgeon: Verito Quesada Click Yes if Unassisted: No Anesthesia Type: Sedation (Ketamine was given by the ER physician, Dr. Liang) Operative Notes Findings: Good air return upon placement of the pigtail catheter, and good positioning of the catheter on postprocedural chest x-ray. Specimen(s): none sent Prosthetic devices, grafts, tissues, transplants, or devices: Pigtail catheter, right chest Estimated Blood Loss (mL): 1 Blood products transfused: none Procedure in detail: The patient was placed in supine position with his right arm positioned above his head and taped securely. A time-out was conducted. Sedation was given by Dr. Liang. The patient was monitored by the respiratory therapist and the ER physician throughout the procedure. The right side of the chest was prepped and draped in sterile fashion. About 4 cm lateral to the right nipple in the midclavicular line, just above the 5th rib, 1% lidocaine local anesthetic was injected within the skin and then more deeply into the subcutaneous and muscular layers of the chest wall. The needle was advanced into the pleural cavity and air was drawn back, indicating correct location. I then withdrew the needle, and advanced the pigtail catheter with its dilator and trocar in place over the 5th rib and into the pleural space. Correct position was verified by a whoosh of air returning when the trocar was withdrawn from the pigtail catheter. The pigtail was advanced into position and the inner cannula was removed. The pigtail catheter was then connected to the flutter valve. The catheter was sutured to the skin with 2 0 nylon suture and was dressed with a Vaseline gauze covered by 4x4s and a large Tegaderm. A postprocedural chest x-ray was taken which showed good re-expansion of the right lung. The patient tolerated the procedure well. Needle sponge and instrument counts were correct x2 at the end of the procedure. The patient remained in the ER for further management at the conclusion of his procedure Post-operative Plan for aftercare: Patient is to be admitted to the hospitalist service for his multiple comorbidities, and his chest tube with followed by General surgery.
[2019-02-13 15:23] LABS: Reflexed Lactate in 2 Hours Y
[2019-02-13 16:12] LABS: Lactate 2HR (Lactic Acid Rflx) 1.7 mmol/L (0.7-2.1)
--- NOTE | 2019-02-13 17:07 | P.HP_ITS ---
History of Present Illness History of Present Illness Date Patient Seen: 02/13/19 Chief complaint: Chest Pain Narrative: Delvin Parkinson is a 58 y/o M with PMH of CHF (?EF), EtOH cirrhosis, hyp othyroidism, chronic LE venous stasis and pain on methadone and morphine chronically who presented with right sided chest pain starting this morning when he woke up. Chest pain was right-sided, Constant, nonradiating, and worse with inspiration. He did not take any medications to try and alleviate his symptoms instead his niece called EMS. he denies any recent fevers, chills, palpitations, chest pain prior to this morning, shortness of breath, dyspnea on exertion, worsening lower extremity edema. He denies any recent nausea, vomiting, he has had no abdominal pain, constipation, or diarrhea. He denies any history of COPD, and does not use an inhaler. He does not walk much and does not report any dyspnea on exertion. He reports 2 consecutive falls in 2 days approximately a month ago onto that side, but endorse no pain following these falls. He endorses no worsening lower extremity pain compared to his baseline. He states that his lower extremities are actually improved recently. In the ED, patient was mildly hypotensive, however this was near his baseline, otherwise his vitals were unremarkable. His oxygen was 90% on room air. Labs were notable for a white count of 17.4, hemoglobin of 12.1, and platelet count of 307. INR is 1.4, sodium was 126, chloride 91, T bili 2.5, alk-phos 201, albumin 3, and otherwise chemistries were unremarkable. BNP was 268. Procalcitonin 0.16. Chest imaging showed a large right-sided pneumothorax. Surgery was consulted and had right-sided chest pigtail catheter was placed. Repeat chest imaging showed resolution of his pneumothorax. Given patient's medical comorbidities he was admitted to Medicine was surgery consult to 1st chest tube. Patient History Medical History Cirrhosis (Acute) Hypothyroid (Acute) Smoker (Acute) Venous stasis dermatitis of both lower extremities (Acute) Family & Social History Safety & Behavioral: Feels Safe in Current Yes Environment Been Physically Hurt or No Threatened By a Person Tobacco & Substance use: Smoking Status Current every day smoker alcohol intake frequency holiday/special occasion Substance Use Type marijuana Meds Home Medications and Allergies Home Medications Medication Instructions Recorded Confirmed Type carvedilol [Coreg] 6.25 mg PO BID #0 06/22/11 02/13/19 History furosemide [Lasix] 80 mg PO DAILY #0 08/08/11 02/13/19 History lactulose 1 dose PO DIRECTED 06/13/18 02/13/19 History levothyroxine 137 mcg PO DAILY 06/13/18 02/13/19 History methadone 10 mg PO Q12H 06/13/18 02/13/19 History morphine 15 mg PO Q8H PRN 06/13/18 02/13/19 History spironolactone 200 mg PO DAILY 06/13/18 02/13/19 History triamcinolone acetonide 1 applic TOPICAL DIRECTED 06/13/18 02/13/19 History Allergies Allergy/AdvReac Type Severity Reaction Status Date / Time codeine [CODEINE] Allergy Unknown Verified 02/13/19 12:22 Review of Systems Review of Systems Narrative: All other systems reviewed with the patient and are negative unless otherwise stated. Exam Vital Signs (past 8 hours): - 02/13/19 10:46 02/13/19 11:20 02/13/19 12:35 Temperature 98.0 F 98.0 F Pulse Rate 89 89 84 Respiratory Rate 18 18 15 Blood Pressure Blood Pressure [Left Arm] 78/53 L 89/60 L Pulse Oximetry 90 L 90 L 94 02/13/19 13:13 02/13/19 13:21 02/13/19 13:30 Temperature Pulse Rate 89 92 H 89 Respiratory Rate 18 22 20 Blood Pressure Blood Pressure [Left Arm] 96/62 84/62 L Pulse Oximetry 96 98 97 02/13/19 13:39 02/13/19 13:50 02/13/19 13:55 Temperature Pulse Rate 89 87 85 Respiratory Rate 17 16 16 Blood Pressure Blood Pressure [Left Arm] 84/62 L 92/65 90/56 L Pulse Oximetry 99 100 02/13/19 14:00 02/13/19 14:01 02/13/19 14:06 Temperature Pulse Rate 92 H 91 H 91 H Respiratory Rate 16 15 11 L Blood Pressure Blood Pressure [Left Arm] 89/58 L 108/72 100/68 Pulse Oximetry 100 100 100 02/13/19 14:15 02/13/19 14:17 02/13/19 14:20 Temperature Pulse Rate 80 80 Respiratory Rate 16 18 Blood Pressure Blood Pressure [Left Arm] 78/55 L 86/55 L Pulse Oximetry 99 100 100 02/13/19 14:24 02/13/19 14:25 02/13/19 14:30 Temperature Pulse Rate 86 85 80 Respiratory Rate 20 19 14 Blood Pressure Blood Pressure [Left Arm] 85/64 L 87/49 L 89/55 L Pulse Oximetry 100 100 100 02/13/19 14:35 02/13/19 14:50 02/13/19 15:11 Temperature Pulse Rate 83 87 84 Respiratory Rate 15 14 16 Blood Pressure Blood Pressure [Left Arm] 101/71 123/76 90/53 L Pulse Oximetry 100 100 100 02/13/19 15:15 02/13/19 15:20 02/13/19 16:02 Temperature Pulse Rate 89 92 H 83 Respiratory Rate 15 17 16 Blood Pressure Blood Pressure [Left Arm] 81/52 L 87/54 L 91/60 Pulse Oximetry 100 92 02/13/19 16:28 Temperature Pulse Rate 83 Respiratory Rate 17 Blood Pressure 96/67 Blood Pressure [Left Arm] Pulse Oximetry 99 Oxygen Delivery Method Nasal Cannula Oxygen Flow Rate 2 Narrative Exam Narrative: GENERAL APPEARANCE: Pleasant, chronically ill-appearing male, in pain with movement of his upper extremity otherwise in no acute distress SKIN: Inspection of the skin reveals multiple bruises and ecchymoses. He has severe venous stasis changes of his lower extremity with weeping. His legs are wrapped in bandages. He has a small lesion on his right knee which appears old and scarred. There is no purulence, no tenderness, an legs are bilaterally warm. There is mild erythema but this appears chronic. HEENT: The sclerae were anicteric and conjunctivae were pink and moist. Extraocular movements were intact and pupils were equal, round with normal accommodation. External inspection of the ears and nose showed no scars, lesions, or masses. Lips, teeth, and gums showed normal mucosa. The oral mucosa, hard and soft palate, tongue and posterior pharynx were unremarkable. NECK: Supple and symmetric. There was no thyroid enlargement, and no tenderness, or masses were felt. CHEST: Slumped forward with scoliosis, leans left. Right chest pigtail in place with no surrounding erythema or induration. LUNGS: Auscultation of the lungs revealed no wheezes, rhonchi, or rales. CARDIOVASCULAR: There was a regular rate and rhythm without any murmurs, gallops, rubs. Peripheral pulses were 2+ and symmetric. ABDOMEN: Soft and nontender with normal bowel sounds. Small amount of ascites is palpable. MUSCULOSKELETAL: There was no tenderness or effusions noted. Muscle strength and tone were normal. EXTREMITIES: No cyanosis, clubbing or edema. NEUROLOGIC: Alert and oriented x 3. Normal affect. Strength is +5/5 in the Upper Extremities and Lower Extremities Bilaterally. Sensation to touch was normal. Objective ECG Impression: Sinus rhythm with a rate of 90, significant artifact and difficult to compare to previous but no obvious evidence of EKG. Imaging Chest x-ray: My impression: Large Right pneumothorax. Radiologist's impression: IMPRESSION: Large right pneumothorax. Labs Result Diagrams: 02/13/19 13:00 02/13/19 13:00 Labs: Laboratory Results - last 24 hr 02/13/19 02/13/19 02/13/19 13:00 13:00 13:00 WBC 17.4 H RBC 4.19 L Hgb 12.1 L Hct 36.1 L MCV 86.2 MCH 28.8 MCHC 33.5 RDW 14.2 Plt Count 307 Neut % (Auto) 91.5 H Lymph % (Auto) 2.6 L [place] % (Auto) 4.3 Eos % (Auto) 0.5 L Baso % (Auto) 1.1 Neut # (Auto) 47250 H Lymph # (Auto) 500 L [place] # (Auto) 700 Eos # (Auto) 100 Baso # (Auto) 200 H PT 16.0 H INR 1.4 H APTT 31 D Sodium Potassium Chloride Carbon Dioxide BUN Creatinine Estimated GFR BUN/Creatinine Ratio Glucose Lactate Calcium Total Bilirubin AST ALT Alkaline Phosphatase B-Natriuretic Peptide Total Protein Albumin Globulin Albumin/Globulin Ratio Lipase Procalcitonin 0.16 02/13/19 02/13/19 02/13/19 13:00 13:00 13:00 WBC RBC Hgb Hct MCV MCH MCHC RDW Plt Count Neut % (Auto) Lymph % (Auto) [place] % (Auto) Eos % (Auto) Baso % (Auto) Neut # (Auto) Lymph # (Auto) [place] # (Auto) Eos # (Auto) Baso # (Auto) PT INR APTT Sodium 126 L Potassium 4.3 Chloride 91 L Carbon Dioxide 25 BUN 19 Creatinine 1.00 Estimated GFR > 60.0 BUN/Creatinine Ratio 19.0 Glucose 81 Lactate 2.3 H Calcium 8.6 Total Bilirubin 2.5 H AST 27 ALT 14 Alkaline Phosphatase 201 H B-Natriuretic Peptide 268 H Total Protein 7.7 Albumin 3.0 L Globulin 4.7 H Albumin/Globulin Ratio 0.6 L Lipase 73 Procalcitonin 02/13/19 15:46 WBC RBC Hgb Hct MCV MCH MCHC RDW Plt Count Neut % (Auto) Lymph % (Auto) [place] % (Auto) Eos % (Auto) Baso % (Auto) Neut # (Auto) Lymph # (Auto) [place] # (Auto) Eos # (Auto) Baso # (Auto) PT INR APTT Sodium Potassium Chloride Carbon Dioxide BUN Creatinine Estimated GFR BUN/Creatinine Ratio Glucose Lactate 1.7 Calcium Total Bilirubin AST ALT Alkaline Phosphatase B-Natriuretic Peptide Total Protein Albumin Globulin Albumin/Globulin Ratio Lipase Procalcitonin Assessment & Plan Assessment & Plan narrative: Delvin Parkinson is a 58-year-old male with past m edical history of CHF (?EF), EtOH cirrhosis, hypothyroidism, chronic LE venous stasis and pain on methadone and morphine chronically who presented with right sided chest pain starting this morning when he woke up. He was found to have a pneumothorax in the emergency room, which resolved after right chest pigtail was placed. He was admitted to Medicine at the request of surgery given his chronic medical comorbidities. 1. Right Pneumothorax, acute, present on admission -status post pigtail catheter placement in the emergency room. Etiology unclear. He could have underlying COPD with bullae, this could be traumatic but there are no rib fractures on his chest x-ray and this seems unlikely. -surgery to manage chest pigtail catheter, appreciate assistance -pain control with oral morphine 15 mg , methadone 10 mg BID (patient's home dose) and IV morphine for breakthrough -continuous pulse ox, and supplemental oxygen as needed for goal O2 greater than 90% -PT/OT eval and treat 2. Chronic lower extremity venous stasis, present on admission, stable -patient follows with his primary care provider for wound care. His only current management as triamcinolone cream. He states his nieces help change dressings. He reports his venous stasis to be somewhat improved recently. There is no evidence on exam of active cellulitis or infection and no need for systemic antibiotics. -continue dressing changes and triamcinolone cream -leg elevation when resting. -continue home pain regimen as noted above 3. Congestive heart failure, chronic, unknown if diastolic or systolic, present on admission -patient has no rate since symptoms of heart failure, BNP is indeterminate at 256. There is no indication at this time for repeat echocardiogram. Will continue his home Lasix dose of 80 mg daily. 4. ETOH cirrhosis, chronic, present on admission -continue home Lasix and Aldactone, 80 mg and 200 mg respectively -continue home lactulose 10 mg t.i.d. 5. Hypothyroidism, chronic, present on admission - continue home levothyroxine - repeat TSH Code: Full Dispo: Admitted as inpatient given his stay is likely to exceed 2 midnights. DVT: Heparin subcu
[2019-02-13] MEDS: MORPHINE IR 15 MG TABLET PO (17:19)
[2019-02-13] MEDS: MORPHINE 2 MG/ML INJ IV (17:41)
[2019-02-13] MEDS: METHADONE 10 MG TABLET PO (20:30)
[2019-02-13] MEDS: HEPARIN 5,000 UNIT/ML VIAL 5000 UNIT SUBCUT (21:34)
[2019-02-13] MEDS: LACTULOSE 20 GM/30 ML SOLUTION 10 GM PO (21:34)
[2019-02-13] MEDS: carvediloL 6.25 MG TABLET PO (21:35)
[2019-02-13] MEDS: TRIAMCINOLONE 0.1% OINT 15 GM 1 APPLIC TOP (21:37)
--- NOTE | 2019-02-13 22:30 | PC.NURSE ---
2100- Patient has extensive skin issues. See skin assessment. Lower extremities lightly scrubbed and old serous drainage cleaned away. Foam cleanser with warm water used. Patient has a ulcer to the great toe and heel on the left. No pain. Patient is not diabetic, wounds appear to be stasis ulcers from profound peripheral vascular disease. Patient is not able to care for these wounds himself and he states his caregivers are grossed out by the foot care needed. Plan to have wound care consult and possibly surgery to see patient to determine viability. There is a wound on the chest wall where patients chin sits due to severe kyphosis. This was cleaned and a dressing applied. Wound was mascerated but edges appeared to be healing.
[2019-02-14] VITALS (7 sets, daily range): BP systolic 76–92; BP diastolic 45–54; PULSE 70–78; RESP 11–23; TEMP 36–36.8; O2SAT 95–97
[2019-02-14] MEDS: MORPHINE 2 MG/ML INJ IV ×4 (00:21→19:15)
[2019-02-14] MEDS: SODIUM CHLORIDE 0.9% FLUSH 10 ML IV ×3 (00:22→20:53)
[2019-02-14] MEDS: MORPHINE IR 15 MG TABLET PO ×3 (01:37→15:09)
[2019-02-14 04:53] LABS: Add Manual Diff / Slide Review NO; Basophils Absolute Auto 0 /uL (0-100); Basophils Percent Auto 0.3 % (0-2); Eosinophils Absolute Auto 200 /uL (0-450); Eosinophils Percent Auto 1.7 % (2-4); Hematocrit 31.3 % (41-53); Hemoglobin 10.5 g/dL (13.5-17.5); Lymphocytes Absolute Auto 600 /uL (1100-4500); Lymphocytes Percent Auto 6.1 % (25-40); Mean Corpuscular HGB Conc 33.5 % (30-36); Mean Corpuscular Volume 86.7 fL (80-100); Monocytes Absolute Auto 700 /uL (0-900); Monocytes Percent Auto 6.8 % (3-14); Neutrophils Absolute Auto 9000 /uL (1500-7000); Neutrophils Percent Auto 85.1 % (50-75); Platelet Count 244 X10^3/uL (150-400); Red Blood Cell Count 3.61 X10^6/uL (4.5-5.9); Red Cell Distribution Width 14.4 % (11.6-14.8); White Blood Cell Count 10.6 X10^3/uL (4.5-11.0)
[2019-02-14 05:03] LABS: INR 1.5 (0.9-1.3); Prothrombin Time 17.5 SECONDS (10.1-12.7)
--- NOTE | 2019-02-14 05:04 | DI.RAD.S_ITS ---
PATIENT NAME: RAUL ROSA : 1960 EXAM DATE: 02/14/2019 5:08 ORD. : DAVID JAQUEZ M.D. CC: BRITTANY BERRY D.O. MODALITY: CR PATIENT TYPE: In CONTRAST MEDIA: STATION ID: [id number] FLUORO TIME: This report includes an Addendum and supersedes previous reports for this exam. PROCEDURE: XR CHEST 1V INDICATIONS: pneumothorax, chest tube TECHNIQUE: One view of the chest was acquired. COMPARISON: [facility], , XR CHEST 1V, 02/13/2019, 14:08. [facility], , XR CHEST 1V, 02/13/2019, 12:31. [facility], , CHEST 2 VIEW, 06/22/2011, 10:46. FINDINGS: Surgical changes and devices: There is a right-sided pleural drain. Lungs and pleura: There is a small to moderate right-sided pneumothorax. Interstitial prominence is seen. No focal infiltrates are seen. Mediastinum: The cardiac contours are within normal limits. The aorta demonstrates calcification and tortuosity. Bones and chest wall: Age-appropriate bony degenerative changes are seen. No suspicious bony lesions. Overlying soft tissues appear unremarkable. IMPRESSION: There is a small to moderate right-sided pneumothorax, which is worse compared to the prior examination. However, the volume of the pneumothorax is smaller than on the chest radiograph dated 02/13/2009 1231 hours. There is a right-sided pleural drain is seen. Interstitial prominence is seen throughout. The interstitial prominence is nonspecific, yet may be related to pulmonary edema. Continued Report - Page 2 of 2 PATIENT NAME: RAUL ROSA : 1960 EXAM DATE: 02/14/2019 5:08 ORD. : DAVID JAQUEZ M.D. CC: BRITTANY BERRY D.O. MODALITY: CR PATIENT TYPE: In CONTRAST MEDIA: STATION ID: [id number] FLUORO TIME: Dictated by: ALKA CRONIN on 02/14/2019 at 7:21 Approved by: ALKA CRONIN on 02/14/2019 at 7:24 ADDENDUM: I dictated and approved this case, not Alka Cronin. Dictated by: Charlie Menon M.D. on 02/14/2019 at 10:03 Approved by: Charlie Menon M.D. on 02/14/2019 at 10:04
[2019-02-14 05:08] LABS: Alanine Aminotransferase 11 IU/L (<50); Albumin 2.3 g/dL (3.5-5.0); Albumin Globulin Ratio 0.6 (1.0-2.8); Alkaline Phosphatase 144 U/L (38-126); Aspartate Aminotransferase 22 IU/L (17-59); BUN Creatinine Ratio 18.9 (6-22); Blood Urea Nitrogen 17 mg/dL (9-20); Carbon Dioxide 23 mmol/L (22-32); Chloride 92 mmol/L (98-107); Estimated Glomerular Filt Rate > 60.0 mL/min (>60); Globulin 3.9 g/dL (1.7-4.1); Glucose 79 mg/dL (70-100); HEMOLYSIS < 15 (0-50); Potassium 3.9 mmol/L (3.4-5.1); Sodium 123 mmol/L (137-145); Total Protein 6.2 g/dL (6.3-8.2)
[2019-02-14] MEDS: METHADONE 10 MG TABLET PO ×2 (05:25→17:57)
--- NOTE | 2019-02-14 06:35 | PC.NURSE ---
Truck Mechanic Note-Patient is alert and oriented X3, calm and cooperative, dozed intermittently. Chest tube pigtail to Rt chest wall patent, no respiratory distress, SpO2 >94% on 1.5L, RR 14-24. Medicated with prn IV morphine and PO morphine IR in addition to his scheduled methadone. BLEs continue to weep, Allevyn drsg intact to coccyx and upper chest.
[2019-02-14] MEDS: LACTULOSE 20 GM/30 ML SOLUTION 10 GM PO ×3 (08:53→20:52)
[2019-02-14] MEDS: FUROSEMIDE 40 MG TABLET 80 MG PO (08:53)
[2019-02-14] MEDS: HEPARIN 5,000 UNIT/ML VIAL 5000 UNIT SUBCUT ×2 (08:53→20:52)
[2019-02-14] MEDS: carvediloL 6.25 MG TABLET PO (08:53)
[2019-02-14] MEDS: NICOTINE 7 MG PATCH TOP (08:55)
[2019-02-14] MEDS: LEVOTHYROXINE 137 MCG TABLET PO (08:56)
[2019-02-14] MEDS: SPIRONOLACTONE 50 MG TABLET 200 MG PO (08:57)
[2019-02-14] MEDS: TRIAMCINOLONE 0.1% OINT 15 GM 1 APPLIC TOP ×2 (08:57→20:55)
--- NOTE | 2019-02-14 08:58 | CM.DANOTE ---
DCP: Case received, EMR reviewed and met with patient. Introduced self and role. Was able to meet and converse with patient regarding his baseline history and living situation. DCP assessment completed with information currently available. Patient is a 58 year old male who admitted yesterday afternoon to the care of the hospitalist team. PCP: [place], current PCP unknown Payer: confirmed: Medicare. Patient came to the hospital via ambulance secondary to chest pain. Patient was noted to a pneumothorax. Patient has history of falls at home. He also has lower extemity venous stasis ulcers that need daily dressing changes. Patient stated that his niece and nephew are staying with him, and that his niece helps with dressing changes. He also stated that his niece is working on [employer] caregiving through the state, so she would be able to be compensated. Patient also has history of cirrhosis of the liver, and he stopped drinking in 2008. Patient is alert and oriented, mentioned possible nursing home, but he stated, he does not want to go to any facility. Patient has COPD history, but is not on home oxygen. He does use a walker, does not drive, niece and/or nephew takes him to his appointments. He resides in [place]. Patient stated that he is originally from [place]. P: DCP to continue to follow and monitor closely. If patient needs home health, will need to see which provider is taking over for his care, for he stated that his provider is no longer at [facility]. Will also check in with Jose Summers RN/Career Guidance Counselor
--- NOTE | 2019-02-14 10:36 | P.PN_ITS ---
Subjective Subjective Date Patient Seen: 02/14/19 Time Patient Seen: 08:15 Interval history: Delvin Parkinson is a 58 y/o M with PMH of CHF (?EF), EtOH cirrhosis, hypothyroidism, chronic LE venous stasis and pain on methadone and morphine chronically who presented with right sided chest pain and was found to have a pneumothorax. He was also admitted for acute on chronic hyponatremia. He had a pigtail catheter placed which remains in today. He still complains of some right sided chest pain around the site of the catheter. He denies other complaints today including fever, chills, shortness of breath, nausea, abdominal pain. Exam Vital Signs (past 8 hours): - 02/14/19 04:00 02/14/19 07:46 Temperature 97.4 F L 96.8 F L Pulse Rate 73 74 Respiratory Rate 17 11 L Blood Pressure 82/46 L 81/45 L Pulse Oximetry 97 97 Oxygen Delivery Method Room Air Oxygen Flow Rate 2 Narrative Exam Narrative: GENERAL APPEARANCE: Pleasant, chronically ill-appearing male, in pain with movement of his upper extremity otherwise in no acute distress SKIN: Inspection of the skin reveals multiple bruises and ecchymoses. He has severe venous stasis changes of his lower extremity with weeping. His legs are wrapped in bandages. He has a small lesion on his right knee which appears old and scarred. There is no purulence, no tenderness, an legs are bilaterally warm. There is mild erythema but this appears chronic. HEENT: The sclerae were anicteric and conjunctivae were pink and moist. Extraocular movements were intact and pupils were equal, round with normal accommodation. External inspection of the ears and nose showed no scars, lesions, or masses. Lips, teeth, and gums showed normal mucosa. The oral mucosa, hard and soft palate, tongue and posterior pharynx were unremarkable. NECK: Supple and symmetric. There was no thyroid enlargement, and no tenderness, or masses were felt. CHEST: Slumped forward with scoliosis, leans left. Right chest pigtail in place with no surrounding erythema or induration. LUNGS: Auscultation of the lungs revealed no wheezes, rhonchi, or rales. CARDIOVASCULAR: There was a regular rate and rhythm without any murmurs, gallops, rubs. Peripheral pulses were 2+ and symmetric. ABDOMEN: Soft and nontender with normal bowel sounds. Small amount of ascites. MUSCULOSKELETAL: There was no tenderness or effusions noted. Muscle strength and tone were normal. EXTREMITIES: No cyanosis, clubbing. There is bilateral lower extremity edema and venous stasis. NEUROLOGIC: Alert and oriented x 3. Normal affect. Strength is +5/5 in the Upper Extremities and Lower Extremities Bilaterally. Sensation to touch was normal. Objective Labs Result Diagrams: 02/14/19 04:35 02/14/19 04:35 Labs: Laboratory Results - last 24 hr 02/13/19 02/13/19 02/13/19 13:00 13:00 13:00 WBC 17.4 H RBC 4.19 L Hgb 12.1 L Hct 36.1 L MCV 86.2 MCH 28.8 MCHC 33.5 RDW 14.2 Plt Count 307 Neut % (Auto) 91.5 H Lymph % (Auto) 2.6 L [place] % (Auto) 4.3 Eos % (Auto) 0.5 L Baso % (Auto) 1.1 Neut # (Auto) 95829 H Lymph # (Auto) 500 L [place] # (Auto) 700 Eos # (Auto) 100 Baso # (Auto) 200 H PT 16.0 H INR 1.4 H APTT 31 D Sodium Potassium Chloride Carbon Dioxide BUN Creatinine Estimated GFR BUN/Creatinine Ratio Glucose Lactate Calcium Total Bilirubin AST ALT Alkaline Phosphatase B-Natriuretic Peptide Total Protein Albumin Globulin Albumin/Globulin Ratio Lipase Procalcitonin 0.16 TSH Free T4 02/13/19 02/13/19 02/13/19 13:00 13:00 13:00 WBC RBC Hgb Hct MCV MCH MCHC RDW Plt Count Neut % (Auto) Lymph % (Auto) [place] % (Auto) Eos % (Auto) Baso % (Auto) Neut # (Auto) Lymph # (Auto) [place] # (Auto) Eos # (Auto) Baso # (Auto) PT INR APTT Sodium 126 L Potassium 4.3 Chloride 91 L Carbon Dioxide 25 BUN 19 Creatinine 1.00 Estimated GFR > 60.0 BUN/Creatinine Ratio 19.0 Glucose 81 Lactate 2.3 H Calcium 8.6 Total Bilirubin 2.5 H AST 27 ALT 14 Alkaline Phosphatase 201 H B-Natriuretic Peptide 268 H Total Protein 7.7 Albumin 3.0 L Globulin 4.7 H Albumin/Globulin Ratio 0.6 L Lipase 73 Procalcitonin TSH Free T4 02/13/19 02/14/19 02/14/19 15:46 04:35 04:35 WBC 10.6 RBC 3.61 L Hgb 10.5 L Hct 31.3 L MCV 86.7 MCH 29.0 MCHC 33.5 RDW 14.4 Plt Count 244 Neut % (Auto) 85.1 H Lymph % (Auto) 6.1 L [place] % (Auto) 6.8 Eos % (Auto) 1.7 L Baso % (Auto) 0.3 Neut # (Auto) 9000 H Lymph # (Auto) 600 L [place] # (Auto) 700 Eos # (Auto) 200 Baso # (Auto) 0 PT 17.5 H INR 1.5 H APTT Sodium Potassium Chloride Carbon Dioxide BUN Creatinine Estimated GFR BUN/Creatinine Ratio Glucose Lactate 1.7 Calcium Total Bilirubin AST ALT Alkaline Phosphatase B-Natriuretic Peptide Total Protein Albumin Globulin Albumin/Globulin Ratio Lipase Procalcitonin TSH Free T4 02/14/19 02/14/19 04:35 04:35 WBC RBC Hgb Hct MCV MCH MCHC RDW Plt Count Neut % (Auto) Lymph % (Auto) [place] % (Auto) Eos % (Auto) Baso % (Auto) Neut # (Auto) Lymph # (Auto) [place] # (Auto) Eos # (Auto) Baso # (Auto) PT INR APTT Sodium 123 L Potassium 3.9 Chloride 92 L Carbon Dioxide 23 BUN 17 Creatinine 0.90 Estimated GFR > 60.0 BUN/Creatinine Ratio 18.9 Glucose 79 Lactate Calcium 8.0 L Total Bilirubin 2.0 H AST 22 ALT 11 Alkaline Phosphatase 144 H B-Natriuretic Peptide Total Protein 6.2 L Albumin 2.3 L Globulin 3.9 Albumin/Globulin Ratio 0.6 L Lipase Procalcitonin TSH 26.70 H Free T4 1.20 Assessment & Plan Assessment & Plan narrative: Delvin Parkinson is a 58-year-old male with past medical history of CHF (?EF), EtOH cirrhosis, hypothyroidism, chronic LE venous stasis and pain on methadone and morphine chronically who presented with right sided chest pain starting this morning when he woke up. He was found to have a pneumothorax in the emergency room, which resolved after right chest pigtail was placed. He was admitted to Medicine at the request of surgery given his chronic medical comorbidities. 1. Right Pneumothorax, acute, present on admission -status post pigtail catheter placement in the emergency room. Etiology unclear. He could have underlying COPD with bullae, this could be traumatic but there are no rib fractures on his chest x-ray and this seems unlikely. -surgery to manage chest pigtail catheter, appreciate assistance -pain control with oral morphine 15 mg , methadone 10 mg BID (patient's home dose) and IV morphine for breakthrough -continuous pulse ox, and supplemental oxygen as needed for goal O2 greater t rodriguez 90% -PT/OT eval and treat 2. acute on chronic hyponatremia - likely hypervolemic in setting of cirrhosis. baseline Na probably around 130 per previous labs. Patient admitted with Na of 126 slightly worsened today with Na of 123. This is likely secondary to receiving IVF. Fluids were held early this AM. - continue to follow BMP, will repeat this afternoon. 3. Chronic lower extremity venous stasis, present on admission, stable -patient follows with his primary care provider for wound care. His only current management as triamcinolone cream. He states his nieces help change dressings. He reports his venous stasis to be somewhat improved recently. There is no evidence on exam of active cellulitis or infection and no need for systemic antibiotics. -continue dressing changes and triamcinolone cream -leg elevation when resting. -continue home pain regimen as noted above 4. Congestive heart failure, chronic, unknown if diastolic or systolic, present on admission -patient has no respiratory symptoms of heart failure, BNP is indeterminate at 256. There is no indication at this time for repeat echocardiogram. Will continue his home Lasix dose of 80 mg daily. 5. ETOH cirrhosis, chronic, present on admission -continue home Lasix and Aldactone, 80 mg and 200 mg respectively -continue home lactulose 10 mg t.i.d. 6. Hypothyroidism, chronic, present on admission - continue home levothyroxine - repeat TSH 26.70 with normal free T4. Recommend outpatient follow up with primary care for further management. Code: Full Dispo: Anticipate discharge to home with home health in the next 1-2 days. DVT: Heparin subcu
--- NOTE | 2019-02-14 12:20 | DI.RAD.S_ITS ---
PROCEDURE: XR CHEST 1V INDICATIONS: pneumothorax follow-up TECHNIQUE: One view of the chest was acquired. COMPARISON: [facility], CR, XR CHEST 1V, 02/14/2019, 5:08. [facility], CR, XR CHEST 1V, 02/13/2019, 14:08. [facility], CR, XR CHEST 1V, 02/13/2019, 12:31. FINDINGS: Surgical changes and devices: There is a right-sided pleural drain. Lungs and pleura: A right-sided pneumothorax is seen, which is improved in size compared to the prior examination. Generalized interstitial prominence is seen. Mediastinum: A prominent, tortuous aorta is seen. Heart size is normal. Bones and chest wall: No suspicious bony lesions. Overlying soft tissues appear unremarkable. IMPRESSION: Improved right-sided pneumothorax. Right-sided pleural drain seen in place. Dictated by: Charlie Menon M.D. on 02/14/2019 at 12:02 Approved by: Charlie Menon M.D. on 02/14/2019 at 12:03
--- NOTE | 2019-02-14 13:06 | PT.IIE ---
Current Diagnoses Elevated white blood cell count, unspecified (02/13/19) Hypothyroidism, unspecified (02/13/19) Nicotine dependence, unspecified, uncomplicated (02/13/19) Venous insufficiency (chronic) (peripheral) (02/13/19) Hypotension, unspecified (02/13/19) Pneumothorax, unspecified (02/13/19) Unspecified cirrhosis of liver (02/13/19) Tachypnea, not elsewhere classified (02/13/19) Medical History (Last Reviewed 02/13/19 @ 14:37 by Verito Quesada MD) Cirrhosis (Acute) Hypothyroid (Acute) Smoker (Acute) Venous stasis dermatitis of both lower extremities (Acute) Physical Therapy Inpatient Evaluation/Re-Eval M1 PT/OT-IP Prior Functional Status Start: 02/14/19 12:27 Freq: NEEDED Status: Active Protocol: Document 02/14/19 12:28 NFW (Rec: 02/14/19 13:06 [email or web address] [email or web address]) Medical Review Prior Functional Status Medical History Reviewed Yes Mobility and Gait Walking aid that the patient has is a cane but wants a FWW. In the last 6 months he has fallen 3 times. His activity level is limited to his home. Activities of Daily Living and IADL's Paient requires assistance in dressing, bathing and hygiene. Currently his nephew and his nephew's and two young children live with the patient in an apartment. Social History Household Members family Living Arrangements Apartment/Condo Number of Floors (Floors) One Floor Home Environment Walk in Shower Home Equipment Straight Cane,Raised Toilet Seat Without Armrests,Hand Held Shower Additional Social History Comment Has a free standing chair in the shower but doesn't like to use because it is too low and he can't stand back up on his own. Patient shares that he used to weigh 400 lbs back in 2006. M2 PT-IP Current Condition Start: 02/14/19 12:27 Freq: NEEDED Status: Active Protocol: Document 02/14/19 12:28 NFW (Rec: 02/14/19 13:06 [email or web address] [email or web address]) Physical Therapy Current Condition Current Condition Evaluation Date 02/14/19 Treatment Diagnosis Pneumothorax, s/p catheter pacement; general poor overall health Precautions Abdominal Surgery Precautions Gait Belt above Incisional Area Other Precautions Refrain from laying on right side. Weight Bearing Status Weight Bearing Status Full Weight Bearing M3 PT-IP Subjective Start: 02/14/19 12:27 Freq: NEEDED Status: Active Protocol: Document 02/14/19 12:28 NFW (Rec: 02/14/19 13:06 [email or web address] [email or web address]) Subjective Physical Therapy Visit Type Type Initial Evaluation Visit Start Time 11:53 Visit Stop Time 12:17 Total Visit Minutes 24 Number of ANIMAL HEALTH TECHNICIAN Visits 0 Physical Therapy Visit Comments Patient Comments Patient quite tired, hasn't slept last couple of nights. Requesting to start tomorrow but encouraged patient to follow through with evaluation . Patient Goals Patient hopes to return to his apartment with the assist of his nephew and his nephew's and children. Therapy Pain Assessment Pain When Pain Assessed At Rest Pain Present Pain Present Pain Reported Location Right Chest Intensity 6 M4 PT-IP Mobility and Gait Start: 02/14/19 12:27 Freq: NEEDED Status: Active Protocol: Document 02/14/19 12:28 NFW (Rec: 02/14/19 13:06 [email or web address] [email or web address]) PT-Bed Mobility Assessment Supine to Sit Supine to Sit Minimal Assistance,1 Person Assistance,Head of Bed Elevated Sit to Supine Sit to Supine Minimal Assistance,1 Person Assistance Scooting Scooting to Edge of Bed Minimal Assistance Scooting Up and Down in Bed Maximum Assistance PT-Transfer Assessment Comments Mobility Comments Pt requires assist with LEs going between sitting and supine. Once in bed needs max assist of 2 for positioning. Not willing to try standing today. PT-Balance Assessment Sitting Balance and Reactions Static Sitting Balance Ability Fair M5 PT-IP Objective Assessments Start: 02/14/19 12:27 Freq: NEEDED Status: Active Protocol: Document 02/14/19 12:28 NFW (Rec: 02/14/19 13:06 [email or web address] [email or web address]) Orientation Orientation/Cognition Level of Alertness Alert Orientation Name,Place,Situation Comments Patient pleasant and answered all questioned asked. Gross Range of Motion Upper Extremity ROM Assessment Within Functional Limits Impairments UE ROM functional and affected by patient's extreme forward head posture. Pt unable to lift head to neutral position, mainly rests chin on chest in sitting with head in rt rotation and left lateral flexion. Lower Extremity ROM Assessment Bilaterally Impaired Impairments ROM LE difficult to assess but ~ 30% limited bilaterally. Strength Upper Extremity Strength Assessment Within Functional Limits Comments Strength Comments Did not test LE strength due to patient's fatigue. UE strength functional for current low level condition. Sensation Assessment Comments Sensation Comments Has extensive edema into both LEs with bruises and ecchymosis. Has LE venous stasis ulcers. M7 PT-IP Assessment and Plan Start: 02/14/19 12:27 Freq: NEEDED Status: Active Protocol: Document 02/14/19 12:28 NFW (Rec: 02/14/19 13:06 [email or web address] [email or web address]) PT Summary Assessment and Plan Potential Rehabilitation Potential Fair Status of Condition at Evaluation Evolving Summary Impairments Pain,ROM,Strength,Balance, Coordination,Sensation,Tone, Bed Mobility,Transfers,Gait, Activity Tolerance Progress Towards Goals Slow Progress due to Medical Issues Assessment Summary Pt admitted through ER and noted to have pneumothorax right and is now s/p catheter placement. He has a long history of multiple medical conditions leading to limitation of being able to take care of himself. Overall activity level is quite low. In the last 6 months he has fallen 3 times. Gait has not been assessed yet but most likely will need a FWW. He would like to return home as long as his nephew and nephew' s are there to assist. Goals Bed Mobility Goal Standby Assistance Transfer Goal Minimal Assistance Gait Goal Minimal Assistance Gait Distance 60 Days to Meet Goals 3 Frequency of Treatment Frequency Of Treatment Once a Day Treatment Plan Physical Therapy Treatment Plan Bed Mobility Training,Transfer Training,Gait Training, Therapeutic Exercise,Balance Retraining,Neuromuscular Re-ed ,Coordination Retraining Other Recommendations and Next Treatment Assess gait. Focus Recommendations To Nursing Amount of Assist Needed 2 Person Assist Discharge Recommendations PT Discharge Recommendations Home with Assistance,SNF Rehab Equipment Needed for Home Before FWW Discharge
--- NOTE | 2019-02-14 13:21 | PM.PN.1 ---
Subjective Subjective Date Patient Seen: 02/14/19 Time Patient Seen: 12:19 Interval history: The patient is post tube placement for spontaneous pneumothorax. He has a small pigtail catheter in place. Exam Vital Signs (past 8 hours): - 02/14/19 07:46 Temperature 96.8 F L Pulse Rate 74 Respiratory Rate 11 L Blood Pressure 81/45 L Pulse Oximetry 97 Oxygen Delivery Method Room Air Oxygen Flow Rate 2 Narrative Exam Narrative: Decreased breath sounds and poor effort on the right compared to the left. Tube insertion site looks fine. The suture was on little tension so it attention often redressed it. Objective Labs Result Diagrams: 02/14/19 04:35 02/14/19 04:35 Labs: Laboratory Results - last 24 hr 02/13/19 02/13/19 02/13/19 13:00 13:00 13:00 WBC 17.4 H RBC 4.19 L Hgb 12.1 L Hct 36.1 L MCV 86.2 MCH 28.8 MCHC 33.5 RDW 14.2 Plt Count 307 Neut % (Auto) 91.5 H Lymph % (Auto) 2.6 L [place] % (Auto) 4.3 Eos % (Auto) 0.5 L Baso % (Auto) 1.1 Neut # (Auto) 26053 H Lymph # (Auto) 500 L [place] # (Auto) 700 Eos # (Auto) 100 Baso # (Auto) 200 H PT 16.0 H INR 1.4 H APTT 31 D Sodium Potassium Chloride Carbon Dioxide BUN Creatinine Estimated GFR BUN/Creatinine Ratio Glucose Lactate Calcium Total Bilirubin AST ALT Alkaline Phosphatase B-Natriuretic Peptide Total Protein Albumin Globulin Albumin/Globulin Ratio Lipase Procalcitonin 0.16 TSH Free T4 02/13/19 02/13/19 02/13/19 13:00 13:00 13:00 WBC RBC Hgb Hct MCV MCH MCHC RDW Plt Count Neut % (Auto) Lymph % (Auto) [place] % (Auto) Eos % (Auto) Baso % (Auto) Neut # (Auto) Lymph # (Auto) [place] # (Auto) Eos # (Auto) Baso # (Auto) PT INR APTT Sodium 126 L Potassium 4.3 Chloride 91 L Carbon Dioxide 25 BUN 19 Creatinine 1.00 Estimated GFR > 60.0 BUN/Creatinine Ratio 19.0 Glucose 81 Lactate 2.3 H Calcium 8.6 Total Bilirubin 2.5 H AST 27 ALT 14 Alkaline Phosphatase 201 H B-Natriuretic Peptide 268 H Total Protein 7.7 Albumin 3.0 L Globulin 4.7 H Albumin/Globulin Ratio 0.6 L Lipase 73 Procalcitonin TSH Free T4 02/13/19 02/14/19 02/14/19 15:46 04:35 04:35 WBC 10.6 RBC 3.61 L Hgb 10.5 L Hct 31.3 L MCV 86.7 MCH 29.0 MCHC 33.5 RDW 14.4 Plt Count 244 Neut % (Auto) 85.1 H Lymph % (Auto) 6.1 L [place] % (Auto) 6.8 Eos % (Auto) 1.7 L Baso % (Auto) 0.3 Neut # (Auto) 9000 H Lymph # (Auto) 600 L [place] # (Auto) 700 Eos # (Auto) 200 Baso # (Auto) 0 PT 17.5 H INR 1.5 H APTT Sodium Potassium Chloride Carbon Dioxide BUN Creatinine Estimated GFR BUN/Creatinine Ratio Glucose Lactate 1.7 Calcium Total Bilirubin AST ALT Alkaline Phosphatase B-Natriuretic Peptide Total Protein Albumin Globulin Albumin/Globulin Ratio Lipase Procalcitonin TSH Free T4 02/14/19 02/14/19 04:35 04:35 WBC RBC Hgb Hct MCV MCH MCHC RDW Plt Count Neut % (Auto) Lymph % (Auto) [place] % (Auto) Eos % (Auto) Baso % (Auto) Neut # (Auto) Lymph # (Auto) [place] # (Auto) Eos # (Auto) Baso # (Auto) PT INR APTT Sodium 123 L Potassium 3.9 Chloride 92 L Carbon Dioxide 23 BUN 17 Creatinine 0.90 Estimated GFR > 60.0 BUN/Creatinine Ratio 18.9 Glucose 79 Lactate Calcium 8.0 L Total Bilirubin 2.0 H AST 22 ALT 11 Alkaline Phosphatase 144 H B-Natriuretic Peptide Total Protein 6.2 L Albumin 2.3 L Globulin 3.9 Albumin/Globulin Ratio 0.6 L Lipase Procalcitonin TSH 26.70 H Free T4 1.20 Assessment & Plan Assessment & Plan narrative: The patient has other chronic medical issues that are and treatment. I reviewed his chest x-ray an him it is odd that there is partial collapse. The tube may have backed out slightly but the holes are still within the chest. I'm not sure if the lower lobe re-expansion occludes the holes at a certain point of re-expansion and then went goes below that level there's an air leak. I looked at the tube for any other cause of a persistent air leak and place the tube to a Pleur-Evac on suction. Initially the tube was on 20 cm water suction but there was no improvement in the pneumothorax on chest x-ray so was increased to 40 cm water suction and the air leak seemed to be a little slower. Awaiting repeat chest x-ray. Will repeat his x-ray and observe him overnight. If the lung does not re-expand will need an additional chest tube.
--- NOTE | 2019-02-14 13:45 | DI.RAD.S_ITS ---
PROCEDURE: XR CHEST 1V INDICATIONS: pneumothorax, chest tube TECHNIQUE: One view of the chest was acquired. COMPARISON: [facility], , XR CHEST 1V, 02/14/2019, 12:27. FINDINGS: Surgical changes and devices: A right-sided chest tube is again seen. Lungs and pleura: There is interval decrease in size of previously noted right upper lung field pneumothorax. No left-sided pneumothorax. Mild pulmonary edema is seen. No significant pleural effusion. Mediastinum: There is tortuous thoracic aorta. Heart size is enlarged. Bones and chest wall: No suspicious bony lesions. Overlying soft tissues appear unremarkable. IMPRESSION: Interval slight decrease in size of patient's known right upper lung field pneumothorax. Dictated by: Andrea Garcia M.D. on 02/14/2019 at 14:05 Approved by: Andrea Garcia M.D. on 02/14/2019 at 14:06
[2019-02-14 15:12] LABS: Blood Urea Nitrogen 18 mg/dL (9-20); Calcium 8.5 mg/dL (8.4-10.2); Carbon Dioxide 27 mmol/L (22-32); Chloride 91 mmol/L (98-107); Estimated Glomerular Filt Rate > 60.0 mL/min (>60); Glucose 86 mg/dL (70-100); HEMOLYSIS < 15 (0-50); Potassium 3.6 mmol/L (3.4-5.1); Sodium 126 mmol/L (137-145)
--- NOTE | 2019-02-14 18:23 | PC.NURSE ---
Day Shift Note Alert and oriented x3. Multiple skin issues with dressings in place (see physical assessment), instructed and reminded to change positions while in bed, declines at times. Pigtail valve to right chest in place this morning - attached to chest tube atrium and redressed by Dr. Baig, air leak up to level 4 noted. No air leak noted at 1800. Call light within reach, using appropriately to make needs known.
--- NOTE | 2019-02-14 22:48 | PC.NURSE ---
See PAPER CHART for nursing interventions/note for 02/14/2019 [id number]
[2019-02-15] VITALS (10 sets, daily range): BP systolic 77–122; BP diastolic 47–57; PULSE 65–93; RESP 11–20; TEMP 35.9–37.2; O2SAT 92–97
[2019-02-15] MEDS: MORPHINE IR 15 MG TABLET PO ×4 (01:58→21:11)
[2019-02-15] MEDS: MORPHINE 2 MG/ML INJ IV ×3 (01:58→15:57)
[2019-02-15 04:51] LABS: INR 1.3 (0.9-1.3); Prothrombin Time 15.5 SECONDS (10.1-12.7)
[2019-02-15 05:00] LABS: Alanine Aminotransferase 13 IU/L (<50); Albumin 2.5 g/dL (3.5-5.0); Albumin Globulin Ratio 0.6 (1.0-2.8); Alkaline Phosphatase 160 U/L (38-126); Aspartate Aminotransferase 23 IU/L (17-59); BUN Creatinine Ratio 15.5 (6-22); Bilirubin Total 1.9 mg/dL (0.2-1.3); Blood Urea Nitrogen 17 mg/dL (9-20); Calcium 8.4 mg/dL (8.4-10.2); Carbon Dioxide 27 mmol/L (22-32); Chloride 89 mmol/L (98-107); Estimated Glomerular Filt Rate > 60.0 mL/min (>60); Globulin 4.4 g/dL (1.7-4.1); Glucose 80 mg/dL (70-100); HEMOLYSIS < 15 (0-50); Potassium 3.4 mmol/L (3.4-5.1); Sodium 124 mmol/L (137-145); Total Protein 6.9 g/dL (6.3-8.2)
[2019-02-15] MEDS: METHADONE 10 MG TABLET PO ×2 (06:10→17:39)
[2019-02-15 06:13] LABS: Add Manual Diff / Slide Review YES; Hematocrit 33.4 % (41-53); Hemoglobin 11.2 g/dL (13.5-17.5); Mean Corpuscular HGB Conc 33.7 % (30-36); Mean Corpuscular Hemoglobin 29.2 PG (26-34); Mean Corpuscular Volume 86.5 fL (80-100); Platelet Count 268 X10^3/uL (150-400); Red Blood Cell Count 3.85 X10^6/uL (4.5-5.9); Red Cell Distribution Width 14.5 % (11.6-14.8); White Blood Cell Count 9.4 X10^3/uL (4.5-11.0)
[2019-02-15 06:38] LABS: Neutrophils Absolute Manual 7614 /uL (3000-5900); Total Cells Counted 100
[2019-02-15 06:39] LABS: RBC Morphology Normal Morphology
--- NOTE | 2019-02-15 08:00 | DI.RAD.S_ITS ---
PROCEDURE: XR CHEST 1V INDICATIONS: f/u pneumothorax TECHNIQUE: One view of the chest was acquired. COMPARISON: [facility], CR, XR CHEST 1V, 02/13/2019, 12:31. Merged With [facility], CR, XR CHEST 1V, 02/13/2019, 14:08. Merged With [facility], CR, XR CHEST 1V, 02/14/2019, 5:08. Merged With [facility], CR, XR CHEST 1V, 02/14/2019, 12:27. Merged With [facility], CR, XR CHEST 1V, 02/14/2019, 13:45. FINDINGS: Surgical changes and devices: There is a right-sided pleural drain. Lungs and pleura: A moderately sized right-sided pneumothorax is seen, which is larger than on the immediate prior examination. The volume of the pneumothorax is slightly less on the original examination at 02/13/19 at 1231 hrs. No left-sided pneumothorax is seen. Scattered atelectasis is seen. Mediastinum: Mediastinal contours appear normal. Heart size is normal. Atherosclerotic calcification of the aortic arch is noted. Bones and chest wall: No suspicious bony lesions. Overlying soft tissues appear unremarkable. IMPRESSION: Reaccumulation of the right-sided pneumothorax, which has increased in size compared to the prior and is now moderate in size. A right-sided pleural drain is seen in place. Dictated by: Charlie Menon M.D. on 02/15/2019 at 7:46 Approved by: Charlie Menon M.D. on 02/15/2019 at 7:49
--- NOTE | 2019-02-15 08:24 | CM.DPC ---
Addendum entered by Diane Summers R.N. 02/15/19 08:33: Spoke to Deepa in admissions at [facility] regarding referral. July will look at case tomorrow. Original Note: DCP Cont: Met briefly with patient. Is noted that therapy recommends skilled rehab. Had brief discussion with patient this morning. Patient mentioned, if I have to go, that's fine, lets just see how I continue to do with therapy. Patient declined [facility], but would like to try [facility]. Went ahead and faxed over information to [facility], including face sheet and H&P. Will follow up with a phone call today. Patient clarified that his PCP at [facility] was Dr. Meehan, who is no longer there, but is awaiting to get a new provider. P: DCP to continue to follow closely. Referral has been sent to [facility]. Will follow up with phone call regarding referral. Diane Summers RN/Wildlife Ecology Professor
[2019-02-15 08:25] LABS: Sodium Urine Random 63 mmol/L (30-90)
[2019-02-15] MEDS: carvediloL 6.25 MG TABLET PO ×2 (08:40→21:15)
[2019-02-15] MEDS: LACTULOSE 20 GM/30 ML SOLUTION 10 GM PO ×3 (08:40→21:12)
[2019-02-15] MEDS: HEPARIN 5,000 UNIT/ML VIAL 5000 UNIT SUBCUT ×2 (08:40→21:11)
[2019-02-15] MEDS: FUROSEMIDE 40 MG TABLET 80 MG PO (08:40)
[2019-02-15] MEDS: LEVOTHYROXINE 137 MCG TABLET PO (08:41)
[2019-02-15] MEDS: NICOTINE 7 MG PATCH TOP (08:41)
[2019-02-15] MEDS: TRIAMCINOLONE 0.1% OINT 15 GM 1 APPLIC TOP ×2 (08:42→22:13)
[2019-02-15] MEDS: SPIRONOLACTONE 50 MG TABLET 200 MG PO (08:42)
[2019-02-15] MEDS: SODIUM CHLORIDE 0.9% FLUSH 10 ML IV ×2 (08:42→21:30)
--- NOTE | 2019-02-15 10:26 | PT-IP ANOTE ---
Attempted to see pt at 1020 this morning. Per nursing, he had just been cleaned up and requested that PT not see him at this time (leave me the hell alone). Will check for appropriateness of PT this afternoon.
[2019-02-15] MEDS: fentaNYL 100 MCG/2 ML INJ ×2 (12:00→14:00)
[2019-02-15] MEDS: MIDAZOLAM 5 MG/5 ML VIAL IV ×2 (12:00→14:00)
--- NOTE | 2019-02-15 12:34 | DI.RAD.S_ITS ---
PROCEDURE: XR CHEST 1V INDICATIONS: chest tube placement TECHNIQUE: One view of the chest was acquired. COMPARISON: [facility], CR, XR CHEST 1V, 02/14/2019, 13:45. [facility], CR, XR CHEST 1V, 02/14/2019, 12:27. [facility], CR, XR CHEST 1V, 02/14/2019, 5:08. [facility], CR, XR CHEST 1V, 02/13/2019, 14:08. [facility], CR, XR CHEST 1V, 02/13/2019, 12:31. FINDINGS: Surgical changes and devices: The previously seen pleural drain has been removed and a standard chest tube has been placed. Lungs and pleura: There is a small to moderately sized pneumothorax seen, which is slightly smaller on the 2nd image. Mild interstitial prominence is seen. Mediastinum: Mediastinal contours appear normal. Heart size is normal. Bones and chest wall: No suspicious bony lesions. Overlying soft tissues appear unremarkable. IMPRESSION: Interval placement of a right-sided chest tube with removal of the previously seen pleural drain. A right-sided pneumothorax remains. Dictated by: Charlie Menon M.D. on 02/15/2019 at 12:13 Approved by: Charlie Menon M.D. on 02/15/2019 at 12:14
--- NOTE | 2019-02-15 12:49 | P.PN_ITS ---
Subjective Subjective Date Patient Seen: 02/15/19 Time Patient Seen: 12:50 Interval history: Delvin Parkinson is a 58 y/o M with PMH of CHF (?EF), EtOH cirrhosis, hypothyroidism, chronic LE venous stasis and pain on methadone and morphine chronically who presented with right sided chest pain and was found to have a pneumothorax. He was also admitted for acute on chronic hyponatremia. He had a pigtail catheter placed which remains in today. He still complains of some right sided chest pain around the site of the catheter. He denies other complaints today including fever, chills, shortness of breath, nausea, abdominal pain. A CXR this AM showed worsening R sided pneumothorax and re-expansion. Surgery was contacted and he is planned for a chest tube given his hemodynamic stability at the moment. Exam Vital Signs (past 8 hours): - 02/15/19 07:53 02/15/19 11:00 02/15/19 12:00 Temperature 98 F 98.9 F Pulse Rate 93 H 69 71 Respiratory Rate 14 18 14 Blood Pressure 86/47 L 85/49 L Pulse Oximetry 95 92 Oxygen Delivery Method Room Air Oxygen Flow Rate 0 Narrative Exam Narrative: GENERAL APPEARANCE: Pleasant, chronically ill-appearing male, in pain with movement of his upper extremity otherwise in no acute distress SKIN: Inspection of the skin reveals multiple bruises and ecchymoses. He has severe venous stasis changes of his lower extremity with weeping. His legs are wrapped in bandages. He has a small lesion on his right knee which appears old and scarred. There is no purulence, no tenderness, an legs are bilaterally warm. There is mild erythema but this appears chronic. HEENT: The sclerae were anicteric and conjunctivae were pink and moist. Extr aocular movements were intact and pupils were equal, round with normal accommodation. External inspection of the ears and nose showed no scars, lesions, or masses. Lips, teeth, and gums showed normal mucosa. The oral mucosa, hard and soft palate, tongue and posterior pharynx were unremarkable. NECK: Supple and symmetric. There was no thyroid enlargement, and no tenderness, or masses were felt. CHEST: Slumped forward with scoliosis, leans left. Right chest pigtail in place with no surrounding erythema or induration. LUNGS: Auscultation of the lungs revealed no wheezes, rhonchi, or rales. Absent breath sounds over R apex. CARDIOVASCULAR: There was a regular rate and rhythm without any murmurs, gallops, rubs. Peripheral pulses were 2+ and symmetric. ABDOMEN: Soft and nontender with normal bowel sounds. Small amount of ascites. MUSCULOSKELETAL: There was no tenderness or effusions noted. Muscle strength and tone were normal. EXTREMITIES: No cyanosis, clubbing. There is bilateral lower extremity edema and venous stasis. NEUROLOGIC: Alert and oriented x 3. Normal affect. Strength is +5/5 in the Upper Extremities and Lower Extremities Bilaterally. Sensation to touch was normal. Objective Labs Result Diagrams: 02/15/19 04:35 02/15/19 04:35 Labs: Laboratory Results - last 24 hr 02/14/19 02/15/19 02/15/19 14:38 04:35 04:35 WBC 9.4 RBC 3.85 L Hgb 11.2 L Hct 33.4 L MCV 86.5 MCH 29.2 MCHC 33.7 RDW 14.5 Plt Count 268 Neut % (Auto) Not Reportable Lymph % (Auto) Not Reportable Harding % (Auto) Not Reportable Eos % (Auto) Not Reportable Baso % (Auto) Not Reportable Lymph # (Auto) Not Reportable Harding # (Auto) Not Reportable Baso # (Auto) Not Reportable Total Counted 100 Seg Neutrophils % 81.0 H Lymphocytes % (Manual) 5.0 L Monocytes % (Manual) 6.0 Eosinophils % (Manual) 5.0 H Myelocytes % 3.0 H Neutrophils # (Manual) 7614 H RBC Morphology Normal morphology PT 15.5 H INR 1.3 Sodium 126 L Potassium 3.6 Chloride 91 L Carbon Dioxide 27 BUN 18 Creatinine 1.00 Estimated GFR > 60.0 BUN/Creatinine Ratio 18.0 Glucose 86 Calcium 8.5 Total Bilirubin AST ALT Alkaline Phosphatase Total Protein Albumin Globulin Albumin/Globulin Ratio Ur Random Sodium 02/15/19 02/15/19 04:35 08:15 WBC RBC Hgb Hct MCV MCH MCHC RDW Plt Count Neut % (Auto) Lymph % (Auto) Harding % (Auto) Eos % (Auto) Baso % (Auto) Lymph # (Auto) Harding # (Auto) Baso # (Auto) Total Counted Seg Neutrophils % Lymphocytes % (Manual) Monocytes % (Manual) Eosinophils % (Manual) Myelocytes % Neutrophils # (Manual) RBC Morphology PT INR Sodium 124 L Potassium 3.4 Chloride 89 L Carbon Dioxide 27 BUN 17 Creatinine 1.10 Estimated GFR > 60.0 BUN/Creatinine Ratio 15.5 Glucose 80 Calcium 8.4 Total Bilirubin 1.9 H AST 23 ALT 13 Alkaline Phosphatase 160 H Total Protein 6.9 Albumin 2.5 L Globulin 4.4 H Albumin/Globulin Ratio 0.6 L Ur Random Sodium 63 Assessment & Plan Assessment & Plan narrative: Delvin Parkinson is a 58-year-old male with past medical history of CHF (?EF), EtOH cirrhosis, hypothyroidism, chronic LE venous stasis and pain on methadone and morphine chronically who presented with right sided chest pain starting this morning when he woke up. He was found to have a pneumothorax in the emergency room, which resolved after right chest pigtail was placed. He was admitted to Medicine at the request of surgery given his chronic medical comorbidities. 1. Right Pneumothorax, acute, present on admission -status post pigtail catheter placement in the emergency room. Etiology unclear. He could have underlying COPD with bullae, this could be traumatic but there are no rib fractures on his chest x-ray and this seems unlikely. He had re-expansion this AM and plan is for chest tube today. -surgery to manage chest pigtail catheter, appreciate assistance -pain control with oral morphine 15 mg , methadone 10 mg BID (patient's home dose) and IV morphine for breakthrough -continuous pulse ox, and supplemental oxygen as needed for goal O2 greater than 90% -PT/OT eval and treat once pneumothorax improved. 2. acute on chronic hyponatremia - likely hypervolemic in setting of cirrhosis. baseline Na probably around 130 per previous labs. Patient admitted with Na of 126. Has been stable between 123 and 126. Will initiate fluid restriction now. - Urine Na 63, however patient on lasix. - will fluid restrict today to see if improvement. 3. Chronic lower extremity venous stasis, present on admission, stable -patient follows with his primary care provider for wound care. His only current management as triamcinolone cream. He states his nieces help change dressings. He reports his venous stasis to be somewhat improved recently. There is no evidence on exam of active cellulitis or infection and no need for systemic antibiotics. -continue dressing changes and triamcinolone cream -leg elevation when resting. -continue home pain regimen as noted above 4. Congestive heart failure, chronic, unknown if diastolic or systolic, present on admission -patient has no respiratory symptoms of heart failure, BNP is indeterminate at 256. There is no indication at this time for repeat echocardiogram. Will continue his home Lasix dose of 80 mg daily. 5. ETOH cirrhosis, chronic, present on admission -continue home Lasix and Aldactone, 80 mg and 200 mg respectively -continue home lactulose 10 mg t.i.d. 6. Hypothyroidism, chronic, present on admission - continue home levothyroxine - repeat TSH 26.70 with normal free T4. Recommend outpatient follow up with primary care for further management. Code: Full Dispo: Anticipate discharge to home with home health. Pending resolution of pneumothorax. DVT: Heparin subcu
[2019-02-15] MEDS: LIDOCAINE 2% INJ MDV 20 ML INJ ×2 (13:08→14:37)
[2019-02-15] MEDS: fentaNYL 100 MCG/2 ML INJ IV (14:00)
--- NOTE | 2019-02-15 14:18 | DI.RAD.S_ITS ---
PROCEDURE: XR CHEST 1V INDICATIONS: chest tube replaced TECHNIQUE: One view of the chest was acquired. COMPARISON: [facility], CR, XR CHEST 1V, 02/15/2019, 8:22. [facility], CR, XR CHEST 1V, 02/14/2019, 13:45. [facility], CR, XR CHEST 1V, 02/14/2019, 12:27. [facility], CR, XR CHEST 1V, 02/14/2019, 5:08. [facility], CR, XR CHEST 1V, 02/13/2019, 14:08. [facility], CR, XR CHEST 1V, 02/13/2019, 12:31. [facility], CR, XR CHEST 1V, 02/15/2019, 12:35. FINDINGS: Surgical changes and devices: There is a right-sided chest tube seen. The tip of the tube has been adjusted since the prior examination and now points superiorly. Lungs and pleura: The previously seen right-sided pneumothorax is nearly completely resolved. Mediastinum: Mediastinal contours appear normal. Heart size is at the upper limits of normal. Bones and chest wall: Prominent right-sided subcutaneous/soft tissue gas is seen, which has worsened since the prior examination. Age-appropriate bony degenerative changes are seen. IMPRESSION: Interval adjustment of a right-sided chest tube, with interval near complete resolution of the right-sided pneumothorax. Increased right sided subcutaneous/soft tissue gas. Dictated by: Charlie Menon M.D. on 02/15/2019 at 13:43 Approved by: Charlie Menon M.D. on 02/15/2019 at 13:45
--- NOTE | 2019-02-15 14:30 | P.OP_ITS ---
Operative Date/Time/Diagnoses Date of procedure: 02/15/19 Time of procedure: 14:31 Pre-op diagnosis: Pneumothorax not resolving with pigtail catheter Post-op diagnosis: same Procedure & Clinicians Procedure: Placement of chest tube and manipulation of tube Same procedure as scheduled: Yes Indications: Spontaneous pneumothorax not resolving with pigtail catheter. Due to increase in size of the pneumothorax decision was made to place an actual chest tube. Surgeon: Graham Baig Click Yes if Unassisted: Yes Anesthesia Type: Sedation and Local Operative Notes Findings: Initially tube placed with minimal re-expansion. Patient developed swelling at the site and the tube was repositioned with good affect. The lung was re-expanded with remanipulation. Closure Type: not applicable Specimen(s): none sent Prosthetic devices, grafts, tissues, transplants, or devices: Twenty Colombian chest tube Estimated Blood Loss (mL): 15 Blood products transfused: none Procedure in detail: The patient was placed head of bed up in supine on his bed in the ICU. His pigtail catheter was removed. Time-out was performed. He was prepped and draped in the usual fashion. His arm was extended above his head. Local anesthetic was infiltrated will above the insertion site of his pigtail catheter including the rib space above. A transverse incision was made and a blunt tunnel created up to the rib space above. I entered the chest directly over the rib with a arceo of air. Palpation revealed I was in the chest cavity. Tube was inserted and secured and dressing applied. I was called shortly thereafter because the area appeared to be expanding. I was concerned that he might have a hematoma as he did have some venous bleeding with the insertion of the tube. This was coming from subcu/muscle and not coming out through the chest tube. The dressing was removed and it appeared that this was principally air trapped under the occlusive Tegaderm dressing. However I was concerned that the lung had not re-expanded with the chest tube in decided to reposition it and there also appeared to be a fair amount of air in the subcu. Prepping and draping again including the entire chest tube area I removed the old chest tube. I manipulated a new chest tube through the same hole to the recent see of the procedure. This was manipulated into the apex. It was secured to the chest wall with 0 silk. Dressing was applied and a repeat x-ray showed the lung re- expanded and the tube heading to the apex. The patient had a fair amount of discomfort during the procedure despite being sedated. Complications: none Post-operative Condition: stable Disposition: ICU (Patient never left the ICU) Plan for aftercare: Continued I see you care is needed
--- NOTE | 2019-02-15 15:08 | PC.NURSE ---
Addendum entered by Julisa Renner R.N. 02/15/19 15:21: Amendment: Pt to room 221 via bed. Original Note: Day Shift Note Patient alert and oriented x3. Dr. Baig at bedside 1200 for insertion of chest tube, pigtail drain removed at this time. Pt received 100 mcg fentanyl IV and versed 2 mg IV for sedation - pt tolerated well. On reassessment at about 1400, air noted to be trapped and pressing under dressing. Dr. Baig notified and at bedside, chest tube manipulated/replaced at this time and placed to 20 cm suction. 150 mcg fentanyl IV and 2 mg versed IV administered at this time. CXR completed - see report. Air leak noted up to level 6 when pt takes deep breath, otherwise leak intermittently at level 1. BP remained stable throughout both procedures (80s/40s per baseline - MD aware). Required 2L NC to keep SpO2 greater than 90%. Lungs sounds clear but decreased. Allevyn dressing replaced to buttocks. Cr in place and draining clear diana urine. Transferred to room 212 at 1500 with all belongings. Report given to Pat GROSS.
--- NOTE | 2019-02-15 16:24 | PT.IPTN ---
Current Diagnoses Elevated white blood cell count, unspecified (02/13/19) Hypothyroidism, unspecified (02/13/19) Nicotine dependence, unspecified, uncomplicated (02/13/19) Venous insufficiency (chronic) (peripheral) (02/13/19) Hypotension, unspecified (02/13/19) Pneumothorax, unspecified (02/13/19) Unspecified cirrhosis of liver (02/13/19) Tachypnea, not elsewhere classified (02/13/19) Physical Therapy Treatment Note M2 PT-IP Current Condition Start: 02/14/19 12:27 Freq: NEEDED Status: Active Protocol: Document 02/14/19 12:28 NFW (Rec: 02/14/19 13:06 NFW [id number]) Physical Therapy Current Condition Current Condition Evaluation Date 02/14/19 Treatment Diagnosis Pneumothorax, s/p catheter pacement; general poor overall health Precautions Abdominal Surgery Precautions Gait Belt above Incisional Area Other Precautions Refrain from laying on right side. Weight Bearing Status Weight Bearing Status Full Weight Bearing M3 PT-IP Subjective Start: 02/14/19 12:27 Freq: NEEDED Status: Active Protocol: Document 02/15/19 15:59 AW (Rec: 02/15/19 16:24 AW [id number]) Subjective Physical Therapy Visit Type Type Treatment Note Visit Start Time 15:20 Visit Stop Time 15:55 Total Visit Minutes 35 Notes Chest tube draining to gravity Number of MISSION ANALYST Visits 0 Physical Therapy Visit Comments Patient Comments Pt with chest tube inserted ~ noon and manipulated an hour ago, but reluctantly willing to mobilize with PT. Patient Goals Pt hopes to avoid SNF Therapy Pain Assessment Pain When Pain Assessed During Mobility Pain Present Pain Present Pain Reported Location Right Chest Intensity 5 Scale Used Numeric (1 - 10) Pain Management Techniques Re-positioning,Timing of Activity with Medications M4 PT-IP Mobility and Gait Start: 02/14/19 12:27 Freq: NEEDED Status: Active Protocol: Document 02/15/19 15:59 AW (Rec: 02/15/19 16:24 AW [id number]) PT-Bed Mobility Assessment Supine to Sit Supine to Sit Minimal Assistance,1 Person Assistance Sit to Supine Sit to Supine Minimal Assistance,1 Person Assistance Scooting Scooting to Edge of Bed Standby Assistance Scooting Up and Down in Bed Maximum Assistance PT-Transfer Assessment Sit to and From Stand Sit to and from Stand Minimal Assistance Equipment Transfer Assistive Device Gait Belt,Front Wheeled Walker Orthotic/Prosthetic Devices or Brace: No Transfers Transfer Destination Bed,Chair Transfer Technique Pt ambulated with FWW Transfer Ability Level of Assist Minimal Assistance Comments Mobility Comments Pt required assist to move B LE supine <> sit but performed today with no HOB elevation. Pt sits and stands with significant thoracic and cervical kyphosis resulting in pt looking down at the floor, reducing his safety with any device. Pt stood from bed using FWW and min A x 1 and attempted transfer to chair before realizing it's too low , I won't be able to get up. At that point, pt ambulated around the room a total of ~40 feet with FWW min A x 1 and cues to keep feet within the walker frame for safety before returning to sit EOB. He lifted his legs into the bed and re-positioned with min A x 1. Pt left with call light in reach and RN attending. Gait Assessment Gait Gait Assistance Required: Minimum Assistance,1 Person Assist Distance (Feet) 40 Able to Maintain Weight Bearing Status Yes During Gait Assistive Devices Assistive Device Front Wheeled Walker Orthotic/Prosthetic Devices or Brace: No Gait Deviations General Gait Pattern Antalgic,Decreased Stride Length,Decreased Feet Clearance,Flexed Trunk Factors Limiting Gait Function Factors Limiting Gait Function Decreased Activity Tolerance, Decreased Strength, Incoordination,Pain,Poor Balance,Poor Safety Awareness Comments Gait Comments See mobility comments. Pt was able to self-correct after cues to keep feet within walker frame for safety. PT-Balance Assessment Sitting Balance and Reactions Static Sitting Balance Ability Fair Dynamic Sitting Balance Ability Fair Standing Balance and Reactions Static Standing Balance Ability Fair Dynamic Standing Balance Ability Poor Device Used FWW M5 PT-IP Objective Assessments Start: 02/14/19 12:27 Freq: NEEDED Status: Active Protocol: Document 02/14/19 12:28 NFW (Rec: 02/14/19 13:06 NFW [id number]) Orientation Orientation/Cognition Level of Alertness Alert Orientation Name,Place,Situation Comments Patient pleasant and answered all questioned asked. Gross Range of Motion Upper Extremity ROM Assessment Within Functional Limits Impairments UE ROM functional and affected by patient's extreme forward head posture. Pt unable to lift head to neutral position, mainly rests chin on chest in sitting with head in rt rotation and left lateral flexion. Lower Extremity ROM Assessment Bilaterally Impaired Impairments ROM LE difficult to assess but ~ 30% limited bilaterally. Strength Upper Extremity Strength Assessment Within Functional Limits Comments Strength Comments Did not test LE strength due to patient's fatigue. UE strength functional for current low level condition. Sensation Assessment Comments Sensation Comments Has extensive edema into both LEs with bruises and ecchymosis. Has LE venous stasis ulcers. M7 PT-IP Assessment and Plan Start: 02/14/19 12:27 Freq: NEEDED Status: Active Protocol: Document 02/15/19 15:59 AW (Rec: 02/15/19 16:24 AW [id number]) PT Summary Assessment and Plan Summary Impairments Pain,ROM,Strength,Balance, Coordination,Sensation,Tone, Bed Mobility,Transfers,Gait, Activity Tolerance Progress Towards Goals Progressing Toward Goals Assessment Summary Pt had a chest tube placed today but was willing to mobilize with therapy, showing good effort with all activities. He required min A x 1 for ambulation with FWW partially to manage chest tube and partially due to poor balance associated with extreme thoracic and cervical kyphosis/limited field of vision. However, it is likely that this pt is functioning close to his baseline albeit with increased pain. Caregiver training would be appropriate , if possible, to increase pt' s safety in the home. PT notes that he would benefit from a SNF rehab stay but pt is refusing. In that context, PT recommends discharge to home with family assist (03/09) and home health services to include PT. Goals Bed Mobility Goal Standby Assistance Transfer Goal Minimal Assistance Gait Goal Minimal Assistance Gait Distance 60 Days to Meet Goals 3 Frequency of Treatment Frequency Of Treatment Once a Day Treatment Plan Physical Therapy Treatment Plan Bed Mobility Training,Transfer Training,Gait Training, Therapeutic Exercise,Balance Retraining,Neuromuscular Re-ed ,Coordination Retraining Other Recommendations and Next Treatment gait training, sit to stand Focus from low chair Recommendations To Nursing Amount of Assist Needed 1 Person Assist,2 Person Assist Discharge Recommendations PT Discharge Recommendations Home with 03/09 Assist,Home Health,SNF Rehab Other Discharge Recommendations Home with 03/09 and vs SNF rehab. Equipment Needed for Home Before FWW Discharge
--- NOTE | 2019-02-15 22:04 | PC.NURSE ---
A&OX3. 97%RA. LS diminished. chest tube at 20cm suction. air leak at level 6 when patient takes a deep breath and intermittent air leak at level 1, provider aware. Pt worked with physical therapist and he walked around his room. pt on fluid restriction had 500mls in [place] shift. BP 77/51 provider aware, no new orders. notified provider regarding pt's tele reading now on afib. call light in reach. bed alarm active.
[2019-02-16] VITALS (8 sets, daily range): BP systolic 83–91; BP diastolic 44–57; PULSE 79–87; RESP 16–20; TEMP 36.1–36.7; O2SAT 93–97
[2019-02-16] MEDS: MORPHINE IR 15 MG TABLET PO ×3 (02:45→21:14)
[2019-02-16] MEDS: METHADONE 10 MG TABLET PO ×2 (05:27→17:59)
[2019-02-16 05:43] LABS: INR 1.4 (0.9-1.3); Prothrombin Time 15.8 SECONDS (10.1-12.7)
[2019-02-16 05:51] LABS: Add Manual Diff / Slide Review NO; Basophils Absolute Auto 100 /uL (0-100); Basophils Percent Auto 1.3 % (0-2); Eosinophils Absolute Auto 300 /uL (0-450); Eosinophils Percent Auto 2.6 % (2-4); Hemoglobin 11.4 g/dL (13.5-17.5); Lymphocytes Absolute Auto 600 /uL (1100-4500); Lymphocytes Percent Auto 6.4 % (25-40); Mean Corpuscular HGB Conc 33.6 % (30-36); Mean Corpuscular Hemoglobin 28.9 PG (26-34); Mean Corpuscular Volume 85.9 fL (80-100); Monocytes Absolute Auto 800 /uL (0-900); Monocytes Percent Auto 7.8 % (3-14); Neutrophils Absolute Auto 8200 /uL (1500-7000); Neutrophils Percent Auto 81.9 % (50-75); Platelet Count 280 X10^3/uL (150-400); Red Blood Cell Count 3.96 X10^6/uL (4.5-5.9); Red Cell Distribution Width 14.1 % (11.6-14.8)
--- NOTE | 2019-02-16 06:00 | DI.RAD.S_ITS ---
PROCEDURE: XR CHEST 1V INDICATIONS: f/u chest tube placement TECHNIQUE: One view of the chest was acquired. COMPARISON: [facility], , XR CHEST 1V, 02/15/2019, 14:20. FINDINGS: Surgical changes and devices: A right-sided chest tube appears in stable position.. Lungs and pleura: Persistent right-sided pneumothorax, mildly increased in size compared to the prior study. Developing small consolidation at the right lower lung. No effusion. Left upper lung is obscured by the patient's chin. Asymmetric elevation of the left hemidiaphragm. Atelectatic changes in the retrocardiac region. Mediastinum: Mediastinal contours appear normal. Heart size is normal. Bones and chest wall: Persistent subcutaneous emphysema over the right chest, shoulder and lower neck. No suspicious bony lesions. Overlying soft tissues appear unremarkable. IMPRESSION: 1. Slight interval increase in size of small right pneumothorax. 2. Development of mild right lower lobe consolidative, probably atelectatic changes. An underlying infection or aspiration event cannot be excluded. Dictated by: Adrienne Dill M.D. on 02/16/2019 at 9:17 Approved by: Adrienne Dill M.D. on 02/16/2019 at 9:20
[2019-02-16] MEDS: FUROSEMIDE 40 MG TABLET 80 MG PO (09:12)
[2019-02-16] MEDS: carvediloL 6.25 MG TABLET PO ×2 (09:12→21:14)
[2019-02-16] MEDS: SPIRONOLACTONE 50 MG TABLET 200 MG PO (09:13)
[2019-02-16] MEDS: LEVOTHYROXINE 137 MCG TABLET PO (09:13)
[2019-02-16] MEDS: SODIUM CHLORIDE 0.9% FLUSH 10 ML IV ×2 (09:13→21:27)
[2019-02-16] MEDS: HEPARIN 5,000 UNIT/ML VIAL 5000 UNIT SUBCUT ×2 (09:13→21:14)
[2019-02-16] MEDS: LACTULOSE 20 GM/30 ML SOLUTION 10 GM PO ×3 (09:14→21:13)
[2019-02-16] MEDS: NICOTINE 7 MG PATCH TOP (09:15)
[2019-02-16] MEDS: TRIAMCINOLONE 0.1% CREAM 15 GM 1 APPLIC TOP ×2 (09:16→21:29)
--- NOTE | 2019-02-16 10:53 | PT.IPTN ---
Current Diagnoses Elevated white blood cell count, unspecified (02/13/19) Hypothyroidism, unspecified (02/13/19) Nicotine dependence, unspecified, uncomplicated (02/13/19) Venous insufficiency (chronic) (peripheral) (02/13/19) Hypotension, unspecified (02/13/19) Pneumothorax, unspecified (02/13/19) Unspecified cirrhosis of liver (02/13/19) Tachypnea, not elsewhere classified (02/13/19) Physical Therapy Treatment Note M2 PT-IP Current Condition Start: 02/14/19 12:27 Freq: NEEDED Status: Active Protocol: Document 02/14/19 12:28 NFW (Rec: 02/14/19 13:06 NFW [id number]) Physical Therapy Current Condition Current Condition Evaluation Date 02/14/19 Treatment Diagnosis Pneumothorax, s/p catheter pacement; general poor overall health Precautions Abdominal Surgery Precautions Gait Belt above Incisional Area Other Precautions Refrain from laying on right side. Weight Bearing Status Weight Bearing Status Full Weight Bearing M3 PT-IP Subjective Start: 02/14/19 12:27 Freq: NEEDED Status: Active Protocol: Document 02/16/19 10:40 AW (Rec: 02/16/19 10:53 AW [id number]) Subjective Physical Therapy Visit Type Type Treatment Note Visit Start Time 10:00 Visit Stop Time 10:33 Total Visit Minutes 33 Notes Chest tube draining to gravity Number of PLASTIC TILE SETTER Visits 0 Physical Therapy Visit Comments Patient Comments Pt with improved pain control, willing to work with PT Therapy Pain Assessment Pain When Pain Assessed During Mobility Pain Present Pain Present Reassessed Location Right Chest Intensity 5 Scale Used Numeric (1 - 10) Pain Management Techniques Re-positioning,Timing of Activity with Medications M4 PT-IP Mobility and Gait Start: 02/14/19 12:27 Freq: NEEDED Status: Active Protocol: Document 02/16/19 10:40 AW (Rec: 02/16/19 10:53 AW [id number]) PT-Bed Mobility Assessment Supine to Sit Supine to Sit Contact Guard Assistance,1 Person Assistance,Bedrails Sit to Supine Sit to Supine Minimal Assistance,1 Person Assistance,Bedrails Scooting Scooting to Edge of Bed Standby Assistance Scooting Up and Down in Bed Maximum Assistance PT-Transfer Assessment Sit to and From Stand Sit to and from Stand Minimal Assistance,Moderate Assistance,1 Person Assistance ,Use of Upper Extremities Equipment Transfer Assistive Device Gait Belt,Front Wheeled Walker Orthotic/Prosthetic Devices or Brace: No Transfers Transfer Destination Bed Transfer Ability Level of Assist Minimal Assistance Comments Mobility Comments Pt completed supine to sit from flat bed with decreased assist. Sit to stand from bed in lowest position required mod A x 1 with pt complaining of increased pain to right chest wall when using R UE to push off bed on initial attempt. On second attempt, pt stabilized the walker with his R UE and pushed off the bed with his L UE but continued to require mod A x 1 . After gait training, pt declined sitting in the chair because it is too low for him to be able to get out of. Pt returned to bed requiring min A x 1 and bedrails to elevate his legs. Scooting up in bed required max A x 2 with use of draw sheet. Pt repositioned in the bed with bed alarm armed, call light and table in reach. Gait Assessment Gait Gait Assistance Required: Minimum Assistance,1 Person Assist Distance (Feet) 50 Able to Maintain Weight Bearing Status Yes During Gait Assistive Devices Assistive Device Gait Belt,Front Wheeled Walker Orthotic/Prosthetic Devices or Brace: No Gait Deviations General Gait Pattern Antalgic,Decreased Stride Length,Decreased Feet Clearance,Flexed Trunk Factors Limiting Gait Function Factors Limiting Gait Function Decreased Activity Tolerance, Decreased Strength, Incoordination,Pain,Poor Balance,Poor Safety Awareness Comments Gait Comments Pt ambulated in the room with PT aide assisting to manage multiple lines. Pt limited to ambulation in the room due to wall tether for chest tube suction. Pt continued to require min A x 1 for walker management, especially in tight turns. M5 PT-IP Objective Assessments Start: 02/14/19 12:27 Freq: NEEDED Status: Active Protocol: Document 02/14/19 12:28 NFW (Rec: 02/14/19 13:06 NFW [email or web address]) Orientation Orientation/Cognition Level of Alertness Alert Orientation Name,Place,Situation Comments Patient pleasant and answered all questioned asked. Gross Range of Motion Upper Extremity ROM Assessment Within Functional Limits Impairments UE ROM functional and affected by patient's extreme forward head posture. Pt unable to lift head to neutral position, mainly rests chin on chest in sitting with head in rt rotation and left lateral flexion. Lower Extremity ROM Assessment Bilaterally Impaired Impairments ROM LE difficult to assess but ~ 30% limited bilaterally. Strength Upper Extremity Strength Assessment Within Functional Limits Comments Strength Comments Did not test LE strength due to patient's fatigue. UE strength functional for current low level condition. Sensation Assessment Comments Sensation Comments Has extensive edema into both LEs with bruises and ecchymosis. Has LE venous stasis ulcers. M6 PT-IP Treatment Start: 02/14/19 12:27 Freq: NEEDED Status: Active Protocol: Document 02/16/19 10:40 AW (Rec: 02/16/19 10:53 AW [id number]) Physical Therapy Treatment Other Treatments Other Treatment Performed Marching in place with and without FWW for support. Mini- squats with walker. M7 PT-IP Assessment and Plan Start: 02/14/19 12:27 Freq: NEEDED Status: Active Protocol: Document 02/16/19 10:40 AW (Rec: 02/16/19 10:53 AW [id number]) PT Summary Assessment and Plan Summary Impairments Pain,ROM,Strength,Balance, Coordination,Sensation,Tone, Bed Mobility,Transfers,Gait, Activity Tolerance Progress Towards Goals Progressing Toward Goals Assessment Summary Pt had improved pain control today but does report sharp increase in chest wall pain while pushing with R UE. He required constant assist and is not safe to discharge home at this time, even with family assist. PT recommends SNF rehab for increased strength, independence, and safety upon return to home. Goals Bed Mobility Goal Standby Assistance Transfer Goal Minimal Assistance Gait Goal Minimal Assistance Gait Distance 60 Days to Meet Goals 5 Frequency of Treatment Frequency Of Treatment Once a Day Treatment Plan Physical Therapy Treatment Plan Bed Mobility Training,Transfer Training,Gait Training, Therapeutic Exercise,Balance Retraining,Neuromuscular Re-ed ,Coordination Retraining Other Recommendations and Next Treatment gait training, ther ex for Focus strengthening Recommendations To Nursing Amount of Assist Needed 1 Person Assist Discharge Recommendations PT Discharge Recommendations Home with 24/7 Assist,Home Health,SNF Rehab Other Discharge Recommendations SNF rehab is current recommendation. Possible home with 24/7 and HH depending on progress and caregiver training Equipment Needed for Home Before FWW if discharging to home Discharge
--- NOTE | 2019-02-16 15:08 | OT.IP.TRT ---
Current Diagnoses Elevated white blood cell count, unspecified (02/13/19) Hypothyroidism, unspecified (02/13/19) Nicotine dependence, unspecified, uncomplicated (02/13/19) Venous insufficiency (chronic) (peripheral) (02/13/19) Hypotension, unspecified (02/13/19) Pneumothorax, unspecified (02/13/19) Unspecified cirrhosis of liver (02/13/19) Tachypnea, not elsewhere classified (02/13/19) Occupational Therapy Treatment Note M2 OT-IP Current Condition Start: 02/14/19 16:13 Freq: Status: Active Protocol: Document 02/14/19 16:15 CGR (Rec: 02/14/19 16:37 CGR [email or web address]) Occupational Therapy Current Condition Current Condition Evaluation Date 02/14/19 Treatment Diagnosis R pneumothorax, chest tube placed Diagnosis Onset Date 02/13/19 M3 OT- IP Subjective and Pain Start: 02/14/19 16:13 Freq: Status: Active Protocol: Document 02/16/19 15:06 CCC (Rec: 02/16/19 15:08 CCC [email or web address]) OT- Subjective Occupational Therapy Visit Type Type Patient Refusal Notes Pt states too tired and not wanting to get up at this time . Pt states just open to wash his hands though. Pt now states open to going to skilled rehab before going home. Notified case management of pt's request. No charge.
--- NOTE | 2019-02-16 18:34 | P.PN_ITS ---
Subjective Subjective Date Patient Seen: 02/16/19 Interval history: 58-year-old male admitted to the hospital with a pneumothorax. Pigtail drain was placed however pneumothorax did not improved. Patient had a chest tube placed. He does have some pain at the insertion site reports some s hortness of breath but overall appears to be tolerating the chest tube well. Exam Vital Signs (past 8 hours): - 02/16/19 11:57 02/16/19 17:10 Temperature 97.9 F 96.9 F L Pulse Rate 85 79 Respiratory Rate 19 20 Blood Pressure 83/54 L 89/44 L Pulse Oximetry 94 95 Oxygen Delivery Method Nasal Cannula Oxygen Flow Rate 3 Narrative Exam Narrative: Chronically ill-appearing male lying in bed in no obvious distre ss Lungs: Decreased breath sounds, chest tube placed on the right Cardiac exam: Regular rate and rhythm normal S1-S2 Abdomen: Soft nontender nondistended Back: Patient with extreme kyphosis appears to have cervical compression Extremities: Chronic venous stasis changes Objective Labs Result Diagrams: 02/16/19 05:00 02/15/19 04:35 Labs: Laboratory Results - last 24 hr 02/16/19 02/16/19 05:00 05:00 WBC 10.0 RBC 3.96 L Hgb 11.4 L Hct 34.0 L MCV 85.9 MCH 28.9 MCHC 33.6 RDW 14.1 Plt Count 280 Neut % (Auto) 81.9 H Lymph % (Auto) 6.4 L [place] % (Auto) 7.8 Eos % (Auto) 2.6 Baso % (Auto) 1.3 Neut # (Auto) 8200 H Lymph # (Auto) 600 L [place] # (Auto) 800 Eos # (Auto) 300 Baso # (Auto) 100 PT 15.8 H INR 1.4 H Assessment & Plan Assessment & Plan narrative: Right Pneumothorax, acute, present on admission - status post pigtail catheter placement in the emergency room. Etiology unclear. He could have underlying COPD with bullae, this could be traumatic but there are no rib fractures on his chest x-ray and this seems unlikely. He had re-expansion this AM and plan is for chest tube today. -pigtail catheter removed -Chest tube in place -surgery to manage 2. acute on chronic hyponatremia - likely hypervolemic in setting of cirrhosis. baseline Na probably around 130 per previous labs. Patient admitted with Na of 126. Has been stable between 123 and 126. Will initiate fluid restriction now. - Urine Na 63, however patient on lasix. - will fluid restrict today to see if improvement. -given hypotension and hyponatremia consider adrenal insufficiency, will obtain and crutch cosyntropin stem test 3. Chronic lower extremity venous stasis, present on admission, stable -patient follows with his primary care provider for wound care. His only current management as triamcinolone cream. He states his nieces help change dressings. He reports his venous stasis to be somewhat improved recently. There is no evidence on exam of active cellulitis or infection and no need for systemic antibiotics. -continue dressing changes and triamcinolone cream -leg elevation when resting. -continue home pain regimen as noted above 4. Congestive heart failure, chronic, unknown if diastolic or systolic, present on admission -patient has no respiratory symptoms of heart failure, BNP is indeterminate at 256. There is no indication at this time for repeat echocardiogram. Will continue his home Lasix dose of 80 mg daily. 5. ETOH cirrhosis, chronic, present on admission -continue home Lasix and Aldactone, 80 mg and 200 mg respectively -continue home lactulose 10 mg t.i.d. 6. Hypothyroidism, chronic, present on admission - continue home levothyroxine - repeat TSH 26.70 with normal free T4. Recommend outpatient follow up with primary care for further management.
--- NOTE | 2019-02-16 18:43 | PM.PN.1 ---
Subjective Subjective Date Patient Seen: 02/16/19 Time Patient Seen: 16:51 Interval history: Patient is a gentleman who has a chest tube in place. He complains of pain and cannot sleep. Exam Vital Signs (past 8 hours): - 02/16/19 11:57 02/16/19 17:10 Temperature 97.9 F 96.9 F L Pulse Rate 85 79 Respiratory Rate 19 20 Blood Pressure 83/54 L 89/44 L Pulse Oximetry 94 95 Oxygen Delivery Method Nasal Cannula Oxygen Flow Rate 3 Narrative Exam Narrative: Heme of the legs is markedly improved though the discoloration from the knee down persists. Moving air bilaterally though there is a lot of crepitance the right chest wall which interferes with auscultation. Patient is a continuous air leak on exam. The lung was inflated on chest x-ray today. Objective Labs Result Diagrams: 02/16/19 05:00 02/15/19 04:35 Labs: Laboratory Results - last 24 hr 02/16/19 02/16/19 05:00 05:00 WBC 10.0 RBC 3.96 L Hgb 11.4 L Hct 34.0 L MCV 85.9 MCH 28.9 MCHC 33.6 RDW 14.1 Plt Count 280 Neut % (Auto) 81.9 H Lymph % (Auto) 6.4 L [place] % (Auto) 7.8 Eos % (Auto) 2.6 Baso % (Auto) 1.3 Neut # (Auto) 8200 H Lymph # (Auto) 600 L [place] # (Auto) 800 Eos # (Auto) 300 Baso # (Auto) 100 PT 15.8 H INR 1.4 H Assessment & Plan Assessment & Plan narrative: Patient was spontaneous pneumothorax. Has a persistent leak. Will repeat x-ray in the morning.
[2019-02-17] VITALS (7 sets, daily range): BP systolic 75–98; BP diastolic 50–64; PULSE 75–85; RESP 14–19; TEMP 36.2–36.9; O2SAT 97–100; BMI 21.5
[2019-02-17] MEDS: METHADONE 10 MG TABLET PO ×2 (05:28→17:46)
--- NOTE | 2019-02-17 06:45 | DI.RAD.S_ITS ---
PROCEDURE: XR CHEST 1V INDICATIONS: Follow-up. Persistent air leak with chest tube TECHNIQUE: One view of the chest was acquired. COMPARISON: [facility], CR, XR CHEST 1V, 02/15/2019, 14:20. [facility], CR, XR CHEST 1V, 02/16/2019, 6:32. FINDINGS: Surgical changes and devices: There is a thoracostomy on the right side. Lungs and pleura: A small right pneumothorax is present, similar in size compared to the last exam. Lungs are clear. No pleural effusions or pneumothorax. Mediastinum: Mediastinal contours appear normal. Heart size is normal. Bones and chest wall: Moderate to severe subcutaneous emphysema in the right hemithorax. No suspicious bony lesions. Overlying soft tissues appear unremarkable. IMPRESSION: 1. There is a small right pneumothorax, unchanged from the last exam. 2. Thoracostomy tube is noted in the right hemithorax. Dictated by: Kory Kiser M.D. on 02/17/2019 at 8:53 Approved by: Kory Kiser M.D. on 02/17/2019 at 8:56
[2019-02-17] MEDS: HEPARIN 5,000 UNIT/ML VIAL 5000 UNIT SUBCUT ×2 (09:20→20:08)
[2019-02-17] MEDS: LACTULOSE 20 GM/30 ML SOLUTION 10 GM PO ×3 (09:21→20:08)
[2019-02-17] MEDS: FUROSEMIDE 40 MG TABLET 80 MG PO (09:21)
[2019-02-17] MEDS: LEVOTHYROXINE 137 MCG TABLET PO (09:21)
[2019-02-17] MEDS: carvediloL 6.25 MG TABLET PO (09:24)
[2019-02-17] MEDS: NICOTINE 7 MG PATCH TOP (09:24)
[2019-02-17] MEDS: SODIUM CHLORIDE 0.9% FLUSH 10 ML IV ×2 (09:28→20:18)
[2019-02-17] MEDS: SPIRONOLACTONE 50 MG TABLET 200 MG PO (09:29)
--- NOTE | 2019-02-17 10:06 | DI.CT.S_ITS ---
PROCEDURE: CT CHEST WO CON INDICATIONS: persistent pneumothorax TECHNIQUE: Noncontrast 5 mm thick sections acquired from the pulmonary apices to the posterior costophrenic angles. 1 mm lung window, 5 mm thick coronal and sagittal and 7 mm axial MIP reformats were then acquired. For radiation dose reduction, the following was used: automated exposure control, adjustment of mA and/or kV according to patient size. COMPARISON: [facility], CR, XR CHEST 1V, 02/16/2019, 6:32. [facility], CR, XR CHEST 1V, 02/15/2019, 14:20. [facility], CR, XR CHEST 1V, 02/15/2019, 12:35. [facility], CR, XR CHEST 1V, 02/15/2019, 8:22. [facility], CR, XR CHEST 1V, 02/14/2019, 13:45. [facility], CR, XR CHEST 1V, 02/14/2019, 12:27. [facility], CR, XR CHEST 1V, 02/14/2019, 5:08. [facility], CR, XR CHEST 1V, 02/13/2019, 14:08. [facility], CR, XR CHEST 1V, 02/13/2019, 12:31. [facility], CR, XR CHEST 1V, 02/17/2019, 5:18. FINDINGS: Image quality: Excellent. Lungs and pleura: A right-sided chest tube is seen in place, with the tip pointed superiorly within the lateral pleural space. There is a small, persistent right-sided pneumothorax seen. Dependent atelectasis is seen. No chato pulmonary nodules are seen. No large pleural effusions are seen. Calcified pulmonary granulomas are seen. Mediastinum: Heart size is normal. No pericardial effusion. No mediastinal adenopathy by size criteria. Calcified perihilar and mediastinal lymph nodes are seen. Thoracic aorta and central pulmonary arteries are normal in size. Esophagus is normal in caliber. No hiatal hernia. Bones and chest wall: There is a prominent amount of right-sided soft tissue gas seen. No suspicious bony lesions. There is a remote appearing T12 superior endplate compression deformity, with 30% loss of height anteriorly. Age-appropriate bony degenerative changes are seen. No acute appearing vertebral body compression fractures. No axillary or supraclavicular adenopathy by size criteria. Thyroid gland demonstrates no significant noncontrast abnormality. Abdomen: Calcified granulomas are seen within the spleen. At the superior pole of the right kidney, there is a water density cyst seen that measures 12 mm. 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 The visualized portions of the upper abdominal structures are otherwise unremarkable for imaging technique. IMPRESSION: Persistent small right-sided pneumothorax, with a disc tube appropriately placed. There is prominent associated right-sided soft tissue gas. 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 When clinically appropriate, a dedicated CT angiogram of the abdomen is recommended for further evaluation (assuming that there is no contraindication). Incidental note is made of: Accentuated thoracic curvature T12 anterior wedge deformity Prior granulomatous exposure. So yet Dictated by: Charlie Menon M.D. on 02/17/2019 at 9:34 Approved by: Charlie Menon M.D. on 02/17/2019 at 9:43
--- NOTE | 2019-02-17 11:15 | PT.IPTN ---
Current Diagnoses Elevated white blood cell count, unspecified (02/13/19) Hypothyroidism, unspecified (02/13/19) Nicotine dependence, unspecified, uncomplicated (02/13/19) Venous insufficiency (chronic) (peripheral) (02/13/19) Hypotension, unspecified (02/13/19) Pneumothorax, unspecified (02/13/19) Unspecified cirrhosis of liver (02/13/19) Tachypnea, not elsewhere classified (02/13/19) Physical Therapy Treatment Note M2 PT-IP Current Condition Start: 02/14/19 12:27 Freq: NEEDED Status: Active Protocol: Document 02/14/19 12:28 NFW (Rec: 02/14/19 13:06 NFW [id number]) Physical Therapy Current Condition Current Condition Evaluation Date 02/14/19 Treatment Diagnosis Pneumothorax, s/p catheter pacement; general poor overall health Precautions Abdominal Surgery Precautions Gait Belt above Incisional Area Other Precautions Refrain from laying on right side. Weight Bearing Status Weight Bearing Status Full Weight Bearing M3 PT-IP Subjective Start: 02/14/19 12:27 Freq: NEEDED Status: Active Protocol: Document 02/17/19 10:44 SP (Rec: 02/17/19 11:38 SP [id number]) Subjective Physical Therapy Visit Type Type Treatment Note Visit Start Time 10:44 Visit Stop Time 11:15 Total Visit Minutes 31 Notes Chest tube draining to gravity Physical Therapy Visit Comments Patient Comments Pt stated R lateral ribcage in more pain after last tx from R UE WB pushing up to stand. Pt stated willing to work with PT, just got back from CT scan but would like to stand and walk around. Therapy Pain Assessment Pain When Pain Assessed At Rest Pain Present Pain Present Pain Reported Location Right Chest Intensity 5 Scale Used 5/10 at rest, 6/10 during mobility Pain Management Techniques Re-positioning,Timing of Activity with Medications M4 PT-IP Mobility and Gait Start: 02/14/19 12:27 Freq: NEEDED Status: Active Protocol: Document 02/17/19 10:44 SP (Rec: 02/17/19 11:38 SP [id number]) PT-Bed Mobility Assessment Supine to Sit Supine to Sit Minimal Assistance,1 Person Assistance,Head of Bed Elevated Sit to Supine Sit to Supine Contact Guard Assistance,1 Person Assistance Scooting Scooting to Edge of Bed Standby Assistance PT-Transfer Assessment Sit to and From Stand Sit to and from Stand Minimal Assistance,1 Person Assistance,Use of Upper Extremities Equipment Transfer Assistive Device Gait Belt,Front Wheeled Walker Orthotic/Prosthetic Devices or Brace: No Transfers Transfer Destination Bed Transfer Ability Level of Assist Contact Guard Assistance, Minimal Assistance Comments Mobility Comments Pt was laying in bed when arrived, willing to work with PT. Pt complete supine to sitting with HOB elevated 60deg with Min A for LIGHTING ENGINEERING TECHNICIAN at LUE to pull from therapist for transition of trunk to sitting. Pt demonstrated light RUE pressure into bed for self assist secondary to lateral ribcage pain. Pt was able to scoot to EOB himself SBA. JOB LITHOGRAPHER postioned chest drain container and catheter onto FWW and provided line mgt during mobility during standing activity. Pt was able to complete sit to stand with use of L>RUE and FWW initially required 15% A then decreased to CGA I want to do it during second repetition after walk. Pt demonstrated good hand placement. JOB LITHOGRAPHER instructed patient ot sit closer to bed rail for higher positioning on the bed before laying down. Pt completed sitting to supine SBA swinging legs up into bed himself while laying back. Cued for legs and upper body repositioning to center in bed , CGA. Pt had all needs within reach and OT arrived, in room when left. Gait Assessment Gait Gait Assistance Required: Contact Guard Assist,1 Person Assist Distance (Feet) 50 Able to Maintain Weight Bearing Status Yes During Gait Assistive Devices Assistive Device Gait Belt,Front Wheeled Walker Gait Deviations General Gait Pattern Antalgic,Decreased Stride Length,Decreased Feet Clearance,Flexed Trunk Factors Limiting Gait Function Factors Limiting Gait Function Decreased Activity Tolerance, Decreased Strength, Incoordination,Pain,Poor Balance,Poor Safety Awareness Comments Gait Comments Pt ambulated in room R side of bed to front of bathroom door around to left side of the bed and back to R side of bed CGA using FWW. Pt demonstrated occasional retro lean but self recovered, cued for awareness of upright posture while maintaining COG over JUNG . PT-Balance Assessment Sitting Balance and Reactions Static Sitting Balance Ability Good Dynamic Sitting Balance Ability Good Standing Balance and Reactions Static Standing Balance Ability Good Dynamic Standing Balance Ability Fair Device Used FWW M5 PT-IP Objective Assessments Start: 02/14/19 12:27 Freq: NEEDED Status: Active Protocol: Document 02/14/19 12:28 NFW (Rec: 02/14/19 13:06 NFW [id number]) Orientation Orientation/Cognition Level of Alertness Alert Orientation Name,Place,Situation Comments Patient pleasant and answered all questioned asked. Gross Range of Motion Upper Extremity ROM Assessment Within Functional Limits Impairments UE ROM functional and affected by patient's extreme forward head posture. Pt unable to lift head to neutral position, mainly rests chin on chest in sitting with head in rt rotation and left lateral flexion. Lower Extremity ROM Assessment Bilaterally Impaired Impairments ROM LE difficult to assess but ~ 30% limited bilaterally. Strength Upper Extremity Strength Assessment Within Functional Limits Comments Strength Comments Did not test LE strength due to patient's fatigue. UE strength functional for current low level condition. Sensation Assessment Comments Sensation Comments Has extensive edema into both LEs with bruises and ecchymosis. Has LE venous stasis ulcers. M6 PT-IP Treatment Start: 02/14/19 12:27 Freq: NEEDED Status: Active Protocol: Document 02/17/19 10:44 SP (Rec: 02/17/19 11:38 SP [id number]) Physical Therapy Treatment Other Treatments Other Treatment Performed Marching in place, mini squats , heel raises with FWW for support. M7 PT-IP Assessment and Plan Start: 02/14/19 12:27 Freq: NEEDED Status: Active Protocol: Document 02/17/19 10:44 SP (Rec: 02/17/19 11:38 SP [id number]) PT Summary Assessment and Plan Potential Rehabilitation Potential Fair Status of Condition at Evaluation Evolving Summary Impairments Pain,ROM,Strength,Balance, Coordination,Sensation,Tone, Bed Mobility,Transfers,Gait, Activity Tolerance Progress Towards Goals Progressing Toward Goals Assessment Summary Pt had improved pain control today but does report sharp increase in chest wall pain while pushing with R UE. He required constant assist and is not safe to discharge home at this time, even with family assist. PT recommends SNF rehab for increased strength, independence, and safety upon return to home. Goals Bed Mobility Goal Standby Assistance Transfer Goal Minimal Assistance Gait Goal Minimal Assistance Gait Distance 60 Days to Meet Goals 5 Frequency of Treatment Frequency Of Treatment Once a Day Treatment Plan Physical Therapy Treatment Plan Bed Mobility Training,Transfer Training,Gait Training, Therapeutic Exercise,Balance Retraining,Neuromuscular Re-ed ,Coordination Retraining Other Recommendations and Next Treatment gait training, ther ex for Focus strengthening Recommendations To Nursing Amount of Assist Needed 2 Person Assist Discharge Recommendations PT Discharge Recommendations Home with 24/7 Assist,Home Health,SNF Rehab Other Discharge Recommendations SNF rehab is current recommendation. Possible home with 24/7 and HH depending on progress and caregiver training Equipment Needed for Home Before FWW if discharging to home Discharge
--- NOTE | 2019-02-17 11:24 | OT.IP.TRT ---
Current Diagnoses Elevated white blood cell count, unspecified (02/13/19) Hypothyroidism, unspecified (02/13/19) Nicotine dependence, unspecified, uncomplicated (02/13/19) Venous insufficiency (chronic) (peripheral) (02/13/19) Hypotension, unspecified (02/13/19) Pneumothorax, unspecified (02/13/19) Unspecified cirrhosis of liver (02/13/19) Tachypnea, not elsewhere classified (02/13/19) Occupational Therapy Treatment Note M2 OT-IP Current Condition Start: 02/14/19 16:13 Freq: Status: Active Protocol: Document 02/14/19 16:15 CGR (Rec: 02/14/19 16:37 CGR [email or web address]) Occupational Therapy Current Condition Current Condition Evaluation Date 02/14/19 Treatment Diagnosis R pneumothorax, chest tube placed Diagnosis Onset Date 02/13/19 M3 OT- IP Subjective and Pain Start: 02/14/19 16:13 Freq: Status: Active Protocol: Document 02/17/19 11:22 CCC (Rec: 02/17/19 11:24 CCC [email or web address]) OT- Subjective Occupational Therapy Visit Type Type Patient Refusal Notes Pt states just got up with STRIP PRESSER and now back in bed and too tired to participate in OT at this time. Pt states already did grooming needs earlier.
--- NOTE | 2019-02-17 11:27 | PC.NURSE ---
[address] chest via bed. Chest tube intact, Pt RUL anterior noted to be crepitous, as noted by Dr Quesada, and will f/u on CT scan results. Pt is A&Ox4, pleasant & cooperative. All the allevyn drsgs to skin tears, and coocyx, are clean & dry.
--- NOTE | 2019-02-17 13:19 | DIET.PN ---
Dietary Progress Note Assessment: 58y M admitted for pneumothorax c new chest tube referred to nutrition for wt loss and reduced appetite. Per [facility] records pt has lost 36% body weight in 7 mo unintentionally (severe PCM). Pt reports not eating well until recently when ina started helping out and cooking all his meals. 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 Interventions: 1. double portions of PRO at meal trays (pt on fluid restriction, not appropriate to send ONS) Diet Order: HH/fluid restriction EER: 2200kcal, 100g PRO (1.3g/kg), 1.9L fluids Monitoring/Evaluations: weight, associated labs, POs
--- NOTE | 2019-02-17 16:07 | P.PN_ITS ---
Subjective Subjective Date Patient Seen: 02/17/19 Time Patient Seen: 16:10 Interval history: No acute events overnight. Patient has a persistent leak on his Pleur-evac. Exam Vital Signs (past 8 hours): - 02/17/19 09:24 02/17/19 12:00 Temperature 97.2 F L Pulse Rate 76 78 Respiratory Rate 15 Blood Pressure 98/64 89/60 L Pulse Oximetry 100 Oxygen Delivery Method Nasal Cannula Oxygen Flow Rate 2 Narrative Exam Narrative: GENERAL: Appears older than stated age. Comfortable. Non toxic appearing. Answers questions promptly and appropriately. Vital signs noted. HENT: Normocephalic, atraumatic. Hearing intact. Oral mucosa is pink and moist. EYES: Conjunctiva pink, sclera white, no periorbital swelling. CARDIOVASCULAR: Regular rate. BLE chronic edema. RESPIRATORY: Non-tachypneic, breathing comfortably on 2L NC; right chest tube in place, secured with tegaderm; moderate bubbling in pleuravac with respiratory variation, +leak with cough GASTROINTESTINAL: Abdomen soft and non-distended GENITALURINARY: No flank tenderness. MUSCULOSKELETAL: wasted upper extremities; cervical contracture SKIN: Warm, dry, soft, appropriate color for ethnicity. Venous stasis disease bilateral lower extremities; multiple skin tears. NEURO: Alert and Oriented X 3. No gross sensory deficits, or cognitive issues. PSYCH: Appropriate affect and mood. Objective Imaging CT scan - chest: My impression: Persistent pneumo, no masses; right lung apical blebs Radiologist's impression: IMPRESSION: Persistent small right-sided pneumothorax, with a disc tube appropriately placed. There is prominent associated right-sided soft tissue gas. 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 When clinically appropriate, a dedicated CT angiogram of the abdomen is recommended for further evaluation (assuming that there is no contraindication). Labs Result Diagrams: 02/16/19 05:00 02/15/19 04:35 Assessment & Plan Assessment and plan (1) Bilateral cellulitis of lower leg: Current visit: Yes Status: Acute (2) Bilateral lower extremity edema: Current visit: Yes Status: Acute (3) Venous stasis dermatitis of both lower extremities: Current visit: No Status: Acute (4) Smoker: Current visit: No Status: Acute (5) Hypothyroid: Current visit: No Status: Acute (6) Cirrhosis: Current visit: No Status: Acute (7) Pneumothorax: Current visit: Yes Status: Acute (8) Hypotension: Current visit: Yes Status: Acute Assessment & Plan narrative: 58 yo man with chest tube and persistent leak with moderate anterior pneumothorax. I've discussed with the patient the fact that we saw no evidence of a mass, but there are some apical blebs in the right chest that I see, although they were not mentioned by the Radiology read. Explained to the patient that we have a few options, 1 is to continue chest tube to sucti on and give it more time for the lung to seal, another is to put a sclerose end up the chest tube such as doxycycline or talc powder, and another is to go ahead and transfer him to another facility where thoracic surgery can be involved in his care. I explained to him that if we put a sclerosis and up the chest tube in it doesn't work, then and may be more messy for a thoracic surgeon to manage it surgically. The patient would rather not have this done, and prefers to transfer to a facility where he can get thoracic surgery if needed. Plan: Continue chest tube to suction Daily chest x-ray Pulmonary toilet Physical therapy Medical management by hospitalist Consider transfer to a facility with thoracic surgery for definitive management, patient prefers a facility in [place] if possible Quality VTE Deep Vein Thrombosis/Pulmonary Embolism Present on Admission: No
--- NOTE | 2019-02-17 16:37 | PM.PN.1 ---
Subjective Subjective Date Patient Seen: 02/17/19 Interval history: Patient is a 58-year-old male with end-stage liver disease, hypothyroidism, chronic pain, admitted to the hospital for spontaneous pneumothorax. Patient had a pigtail drain placed and required a chest tube placement for continued leakage. He did have a CT scan of his chest today which confirmed the lung is re-expanded however the patient continues to have a leak. In discussion with the surgeons here determining whether not he will need a VATS procedure or whether we can continue to observe to see if the leak will seal. Patient's major complaint is thirst as he is on a fluid restriction. He has some pain at the chest tube insertion site. Exam Vital Signs (past 8 hours): - 02/17/19 09:24 02/17/19 12:00 Temperature 97.2 F L Pulse Rate 76 78 Respiratory Rate 15 Blood Pressure 98/64 89/60 L Pulse Oximetry 100 Oxygen Delivery Method Nasal Cannula Oxygen Flow Rate 2 Narrative Exam Narrative: Ill-appearing debilitated male HEENT: Normocephalic atraumatic, sclerae anicteric, Spine: Patient has severe kyphosis Lungs: Decreased breath sounds crackles in the right base, chest tube placed on the right Cardiac exam: Regular rate and rhythm normal S1-S2 Abdomen soft nontender nondistended Extremities: No edema Skin exam multiple bruising, T Sanchez ectasias, and spider angiomata Objective Labs Result Diagrams: 02/16/19 05:00 02/15/19 04:35 Assessment & Plan Assessment & Plan narrative: Impression 1. Spontaneous pneumothorax -right chest tube in place -persistently -further management per general surgeon 2. Chronic liver disease -continue spironolactone -continue Lasix 3. Hypothyroidism -continue L-thyroxine 4. Chronic pain -continue usual pain medication 5. Hyponatremia -continue fluid restricted
[2019-02-17] MEDS: MORPHINE IR 15 MG TABLET PO (20:09)
--- NOTE | 2019-02-17 22:11 | PC.NURSE ---
Desi shift note: Patient calm, cooperative and pleasant. Continue on O2 at 2L via NC, sats 98%. Mild SOB noted at rest, HOB elevated. Chest tube to water seal at 20cm. Chest tube site with dressing secured. Repositioning in bed frequently, alternating between right/left and straight on waffle cushion. Pillow to elbows and bony prominences, heels floated. Verbalized understanding of fluid restriction. C/O pain to anterior chest wall region, medicated as ordered. Hypotension noted, unchanged in last few days. MD aware. 10 ml of blood tinged serous drainage to Chest tube this shift
[2019-02-18] VITALS (8 sets, daily range): BP systolic 80–95; BP diastolic 47–58; PULSE 76–80; RESP 18–20; TEMP 35.8–37.1; O2SAT 91–99
--- NOTE | 2019-02-18 | DI.RAD.S_ITS ---
PROCEDURE: XR CHEST 1V INDICATIONS: pneumothorax, interval change TECHNIQUE: One view of the chest was acquired. COMPARISON: [facility], , XR CHEST 1V, 02/17/2019, 5:18. FINDINGS: Surgical changes and devices: Right-sided chest tube is stable. Lungs and pleura: Small right-sided pneumothorax is noted which has increased in size compared to 02/17/2019 at 0518 hours. Mediastinum: Mediastinal contours appear normal. Heart size is normal. Bones and chest wall: Extensive right chest wall subcutaneous air. No suspicious bony lesions. Overlying soft tissues appear unremarkable. IMPRESSION: Small right-sided pneumothorax slightly increased in size compared to 02/17/2019. Dictated by: Candida Simmons MD, PhD on 02/18/2019 at 9:34 Approved by: Candida Simmons MD, PhD on 02/18/2019 at 9:35
[2019-02-18] MEDS: SODIUM CHLORIDE 0.9% FLUSH 10 ML IV ×2 (00:37→08:45)
[2019-02-18] MEDS: MORPHINE 2 MG/ML INJ IV ×3 (00:37→16:36)
[2019-02-18] MEDS: METHADONE 10 MG TABLET PO ×2 (05:21→16:37)
[2019-02-18 05:48] LABS: BUN Creatinine Ratio 19.2 (6-22); Blood Urea Nitrogen 23 mg/dL (9-20); Calcium 8.4 mg/dL (8.4-10.2); Carbon Dioxide 31 mmol/L (22-32); Chloride 85 mmol/L (98-107); Estimated Glomerular Filt Rate > 60.0 mL/min (>60); Glucose 83 mg/dL (70-100); HEMOLYSIS < 15 (0-50); Potassium 3.3 mmol/L (3.4-5.1); Sodium 124 mmol/L (137-145)
--- NOTE | 2019-02-18 08:11 | PM.DS.1 ---
History of Present Illness History of Present Illness Date Patient Seen: 02/18/19 Chief complaint: Chest Pain Narrative: Delvin Parkinson is a 58 y/o M with PMH of CHF (?EF), EtOH cirrhosis, hypothyroidism, chronic LE venous stasis and pain on methadone and morphine chronically who presented with right sided chest pain starting this morning when he woke up. Chest pain was right-sided, Constant, nonradiating, and worse with inspiration. He did not take any medications to try and alleviate his symptoms instead his niece called EMS. he denies any recent fevers, chills, palpitations, chest pain prior to this morning, shortness of breath, dyspnea on exertion, worsening lower extremity edema. He denies any recent nausea, vomiting, he has had no abdominal pain, constipation, or diarrhea. He denies any history of COPD, and does not use an inhaler. He does not walk much and does not report any dyspnea on exertion. He reports 2 consecutive falls in 2 days approximately a month ago onto that side, but endorse no pain following these falls. He endorses no worsening lower extremity pain compared to his baseline. He states that his lower extremities are actually improved recently. In the ED, patient was mildly hypotensive, however this was near his baseline, otherwise his vitals were unremarkable. His oxygen was 90% on room air. Labs were notable for a white count of 17.4, hemoglobin of 12.1, and platelet count of 307. INR is 1.4, sodium was 126, chloride 91, T bili 2.5, alk-phos 201, albumin 3, and otherwise chemistries were unremarkable. BNP was 268. Procalcitonin 0.16. Chest imaging showed a large right-sided pneumothorax. Surgery was consulted and had right-sided chest pigtail catheter was placed. Repeat chest imaging showed resolution of his pneumothorax. Given patient's medical comorbidities he was admitted to Medicine was surgery consult to 1st chest tube. Discharge Providers Provider Date of admission: 02/13/19 15:07 Discharge Date: 02/18/19 Consults: 02/13/19 17:16 Consult to Dietitian, Adult Routine Comment: Reason For Exam: weight loss 02/13/19 18:01 Consult to Occupational Therapy Evaluate & Treat Comment: Physician Instructions: Evaluate and treat Consult to Physical Therapy Evaluate & Treat Comment: Physician Instructions: Evaluate and Treat Discharge provider: Kathy Malone MD Summary Hospital Course Discharge Diagnosis: 1. Spontaneous pneumothorax, status post pigtail drainage with persistently then chest tube placement 2. Cirrhosis of the liver 3. Acute respiratory failure secondary to pneumothorax 4. Hypothyroidism 5. Chronic hyponatremia 6. Venous stasis dermatitis 7. Chronic hypotension 8. Nicotine dependence 9. Chronic pain 10. Congestive heart failure, etiology unclear 11. Severe protein calorie malnutrition 12. Hypokalemia Hospital Course: Patient is a 58-year-old male who presented to the hospital with hyponatremia and abrupt onset of chest pain. The patient was found to have a right-sided pneumothorax. A pigtail drain was placed in the emergency room. Following the next 2-3 days there was found to be a persistent pneumothorax. The patient complained of chest pain and was found to have a significant area involved. He went to the OR for chest tube placement. After the chest tube placed the patient had re-expansion of the lung however he continued to have an air leak. We were unable to have the chest tube placed to water seal. Given the fact that the patient has been here 5 days without significant improvement of his pneumothorax our general surgeon recommended to the patient either talc pleurodesis or transfer to a higher level of care for possible VATS procedure. The patient elected to be transferred for ongoing therapy and to be at a facility where surgical treatment could be entertained if needed. The patient did have a CT scan of his chest yesterday. This showed a persistent right pneumothorax with prominent right soft tissue gas. 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 The patient has had a significant weight loss of about over 100 lb. He continues to be on high-dose Lasix and spironolactone. This likely is contributing to his hyponatremia. As such is Lasix will be cut in half to 40 mg a day and his spironolactone decreased to 100 mg per day. We have consulted the surgical department at [facility] who of graciously accepted the patient in transfer. He was deemed appropriate for transfer and arrangements were made accordingly. Patient does complain of some pain over the right side of the chest but otherwise is asymptomatic. Status at Discharge Cognitive/behavioral status at discharge: oriented Functional status at discharge: bed bound Overall status at discharge: patient is not back to baseline Time Spent with Patient Time spent: Less than 30 minutes Time spent discussing smoking cessation with patient: 3 to 10 minutes Exam Vital Signs (past 8 hours): - 02/18/19 00:20 02/18/19 04:30 Temperature 98.6 F 98.8 F Pulse Rate 80 78 Respiratory Rate 20 18 Blood Pressure 83/47 L 80/49 L Pulse Oximetry 95 99 Oxygen Delivery Method Nasal Cannula Oxygen Flow Rate 2 Narrative Exam Narrative: Ill-appearing male lying in bed HEENT: Normocephalic atraumatic sclerae anicteric extraocular muscles are intact oropharynx is clear Lungs: Decreased breath sounds bilaterally with occasional crackles at the right base Cardiac exam regular rate and rhythm normal S1-S2 Abdomen: Soft nontender distended, unable to appreciate hepatosplenomegaly Extremity: Chronic venous stasis changes, no edema noted Skin exam multiple bruising in the upper extremities, till injectate age is angiomata on the chest wall. : Cr catheter in place Objective Labs Result Diagrams: 02/16/19 05:00 02/18/19 05:20 Labs: Laboratory Results - last 24 hr 02/18/19 05:20 Sodium 124 L Potassium 3.3 L Chloride 85 L Carbon Dioxide 31 BUN 23 H Creatinine 1.20 Estimated GFR > 60.0 BUN/Creatinine Ratio 19.2 Glucose 83 Calcium 8.4 Discharge Plan Discharge Plan Patient Disposition: [facility] Other facility: [facility] Discharge comment: Patient is being transferred for evaluation by thoracic surgery to determine whether talc pleurodesis or VATS would be appropriate for the persistent leak from his chest tube for a pneumothorax Discharge orders & Medications Prescriptions: No Action carvedilol [Coreg] 6.25 MG tablet 6.25 mg PO BID Qty: 0 RF: 0 furosemide [Lasix] 80 MG tablet 80 mg PO DAILY Qty: 0 RF: 0 levothyroxine 137 mcg tablet 137 mcg PO DAILY RF: 0 spironolactone 100 mg tablet 200 mg PO DAILY RF: 0 morphine 30 mg tablet 15 mg PO Q8H PRN (Reason: Pain, Severe) RF: 0 triamcinolone acetonide 0.1 % ointment 1 applic topical DIRECTED RF: 0 lactulose 10 gram/15 mL solution 1 dose PO DIRECTED RF: 0 methadone 10 MG tablet 10 mg PO Q12H RF: 0 Discharge Health Status Multidrug resistant organism: No MDRO Diet/Activity/Treatments Diet: Diet as Tolerated Liquid consistency: Normal/Thin Food texture: Regular Activity: As time Oxygen: 2 liters Quality VTE Deep Vein Thrombosis/Pulmonary Embolism Present on Admission: No
[2019-02-18] MEDS: POTASSIUM CHLORIDE 20 MEQ TAB 40 MEQ PO (08:44)
[2019-02-18] MEDS: LEVOTHYROXINE 137 MCG TABLET PO (08:44)
[2019-02-18] MEDS: NICOTINE 7 MG PATCH TOP (08:44)
[2019-02-18] MEDS: LACTULOSE 20 GM/30 ML SOLUTION 10 GM PO ×2 (08:44→13:50)
[2019-02-18] MEDS: HEPARIN 5,000 UNIT/ML VIAL 5000 UNIT SUBCUT (08:44)
[2019-02-18] MEDS: SPIRONOLACTONE 50 MG TABLET 100 MG PO (08:45)
[2019-02-18] MEDS: MORPHINE IR 15 MG TABLET PO ×2 (09:10→15:24)
[2019-02-18] MEDS: TRIAMCINOLONE 0.1% CREAM 15 GM 1 APPLIC TOP (09:10)
--- NOTE | 2019-02-18 10:04 | OT.IP.TRT ---
Current Diagnoses Elevated white blood cell count, unspecified (02/13/19) Hypothyroidism, unspecified (02/13/19) Nicotine dependence, unspecified, uncomplicated (02/13/19) Venous insufficiency (chronic) (peripheral) (02/13/19) Hypotension, unspecified (02/13/19) Pneumothorax, unspecified (02/13/19) Unspecified cirrhosis of liver (02/13/19) Cellulitis of right lower limb (02/13/19) Cellulitis of left lower limb (02/13/19) Tachypnea, not elsewhere classified (02/13/19) Localized edema (02/13/19) Occupational Therapy Treatment Note M2 OT-IP Current Condition Start: 02/14/19 16:13 Freq: Status: Active Protocol: Document 02/14/19 16:15 CGR (Rec: 02/14/19 16:37 CGR [id number]) Occupational Therapy Current Condition Current Condition Evaluation Date 02/14/19 Treatment Diagnosis R pneumothorax, chest tube placed Diagnosis Onset Date 02/13/19 M3 OT- IP Subjective and Pain Start: 02/14/19 16:13 Freq: Status: Active Protocol: Document 02/18/19 10:03 CCC (Rec: 02/18/19 10:04 CCC [email or web address]) OT- Subjective Occupational Therapy Visit Type Type Patient Refusal Notes Pt wanting to sleep and looking at being transferred to higher level of care per nursing.
--- NOTE | 2019-02-18 10:06 | PT.IPTN ---
Current Diagnoses Elevated white blood cell count, unspecified (02/13/19) Hypothyroidism, unspecified (02/13/19) Nicotine dependence, unspecified, uncomplicated (02/13/19) Venous insufficiency (chronic) (peripheral) (02/13/19) Hypotension, unspecified (02/13/19) Pneumothorax, unspecified (02/13/19) Unspecified cirrhosis of liver (02/13/19) Cellulitis of right lower limb (02/13/19) Cellulitis of left lower limb (02/13/19) Tachypnea, not elsewhere classified (02/13/19) Localized edema (02/13/19) Physical Therapy Treatment Note M2 PT-IP Current Condition Start: 02/14/19 12:27 Freq: NEEDED Status: Active Protocol: Document 02/14/19 12:28 NFW (Rec: 02/14/19 13:06 NFW [email or web address]) Physical Therapy Current Condition Current Condition Evaluation Date 02/14/19 Treatment Diagnosis Pneumothorax, s/p catheter pacement; general poor overall health Precautions Abdominal Surgery Precautions Gait Belt above Incisional Area Other Precautions Refrain from laying on right side. Weight Bearing Status Weight Bearing Status Full Weight Bearing M3 PT-IP Subjective Start: 02/14/19 12:27 Freq: NEEDED Status: Active Protocol: Document 02/18/19 10:06 LJ (Rec: 02/18/19 10:06 LJ [id number]) Subjective Physical Therapy Visit Type Type Patient Refusal M4 PT-IP Mobility and Gait Start: 02/14/19 12:27 Freq: NEEDED Status: Active Protocol: Document 02/17/19 10:44 SP (Rec: 02/17/19 11:38 SP [id number]) PT-Bed Mobility Assessment Supine to Sit Supine to Sit Minimal Assistance,1 Person Assistance,Head of Bed Elevated Sit to Supine Sit to Supine Contact Guard Assistance,1 Person Assistance Scooting Scooting to Edge of Bed Standby Assistance PT-Transfer Assessment Sit to and From Stand Sit to and from Stand Minimal Assistance,1 Person Assistance,Use of Upper Extremities Equipment Transfer Assistive Device Gait Belt,Front Wheeled Walker Orthotic/Prosthetic Devices or Brace: No Transfers Transfer Destination Bed Transfer Ability Level of Assist Contact Guard Assistance, Minimal Assistance Comments Mobility Comments Pt was laying in bed when arrived, willing to work with PT. Pt complete supine to sitting with HOB elevated 60deg with Min A for KENNEL SUPERVISOR at E to pull from therapist for transition of trunk to sitting. Pt demonstrated light RUE pressure into bed for self assist secondary to lateral ribcage pain. Pt was able to scoot to EOB himself SBA. NUMERICAL CONTROL OPERATOR postioned chest drain container and catheter onto FWW and provided line mgt during mobility during standing activity. Pt was able to complete sit to stand with use of L>RUE and FWW initially required 15% A then decreased to CGA I want to do it during second repetition after walk. Pt demonstrated good hand placement. NUMERICAL CONTROL OPERATOR instructed patient ot sit closer to bed rail for higher positioning on the bed before laying down. Pt completed sitting to supine SBA swinging legs up into bed himself while laying back. Cued for legs and upper body repositioning to center in bed , CGA. Pt had all needs within reach and OT arrived, in room when left. Gait Assessment Gait Gait Assistance Required: Contact Guard Assist,1 Person Assist Distance (Feet) 50 Able to Maintain Weight Bearing Status Yes During Gait Assistive Devices Assistive Device Gait Belt,Front Wheeled Walker Gait Deviations General Gait Pattern Antalgic,Decreased Stride Length,Decreased Feet Clearance,Flexed Trunk Factors Limiting Gait Function Factors Limiting Gait Function Decreased Activity Tolerance, Decreased Strength, Incoordination,Pain,Poor Balance,Poor Safety Awareness Comments Gait Comments Pt ambulated in room R side of bed to front of bathroom door around to left side of the bed and back to R side of bed CGA using FWW. Pt demonstrated occasional retro lean but self recovered, cued for awareness of upright posture while maintaining COG over JUNG . PT-Balance Assessment Sitting Balance and Reactions Static Sitting Balance Ability Good Dynamic Sitting Balance Ability Good Standing Balance and Reactions Static Standing Balance Ability Good Dynamic Standing Balance Ability Fair Device Used FWW M5 PT-IP Objective Assessments Start: 02/14/19 12:27 Freq: NEEDED Status: Active Protocol: Document 02/14/19 12:28 NFW (Rec: 02/14/19 13:06 NFW [email or web address]) Orientation Orientation/Cognition Level of Alertness Alert Orientation Name,Place,Situation Comments Patient pleasant and answered all questioned asked. Gross Range of Motion Upper Extremity ROM Assessment Within Functional Limits Impairments UE ROM functional and affected by patient's extreme forward head posture. Pt unable to lift head to neutral position, mainly rests chin on chest in sitting with head in rt rotation and left lateral flexion. Lower Extremity ROM Assessment Bilaterally Impaired Impairments ROM LE difficult to assess but ~ 30% limited bilaterally. Strength Upper Extremity Strength Assessment Within Functional Limits Comments Strength Comments Did not test LE strength due to patient's fatigue. UE strength functional for current low level condition. Sensation Assessment Comments Sensation Comments Has extensive edema into both LEs with bruises and ecchymosis. Has LE venous stasis ulcers. M6 PT-IP Treatment Start: 02/14/19 12:27 Freq: NEEDED Status: Active Protocol: Document 02/17/19 10:44 SP (Rec: 02/17/19 11:38 SP [id number]) Physical Therapy Treatment Other Treatments Other Treatment Performed Marching in place, mini squats , heel raises with FWW for support. M7 PT-IP Assessment and Plan Start: 02/14/19 12:27 Freq: NEEDED Status: Active Protocol: Document 02/17/19 10:44 SP (Rec: 02/17/19 11:38 SP [id number]) PT Summary Assessment and Plan Potential Rehabilitation Potential Fair Status of Condition at Evaluation Evolving Summary Impairments Pain,ROM,Strength,Balance, Coordination,Sensation,Tone, Bed Mobility,Transfers,Gait, Activity Tolerance Progress Towards Goals Progressing Toward Goals Assessment Summary Pt had improved pain control today but does report sharp increase in chest wall pain while pushing with R UE. He required constant assist and is not safe to discharge home at this time, even with family assist. PT recommends SNF rehab for increased strength, independence, and safety upon return to home. Goals Bed Mobility Goal Standby Assistance Transfer Goal Minimal Assistance Gait Goal Minimal Assistance Gait Distance 60 Days to Meet Goals 5 Frequency of Treatment Frequency Of Treatment Once a Day Treatment Plan Physical Therapy Treatment Plan Bed Mobility Training,Transfer Training,Gait Training, Therapeutic Exercise,Balance Retraining,Neuromuscular Re-ed ,Coordination Retraining Other Recommendations and Next Treatment gait training, ther ex for Focus strengthening Recommendations To Nursing Amount of Assist Needed 2 Person Assist Discharge Recommendations PT Discharge Recommendations Home with 24/7 Assist,Home Health,SNF Rehab Other Discharge Recommendations SNF rehab is current recommendation. Possible home with 24/7 and depending on progress and caregiver training Equipment Needed for Home Before FWW if discharging to home Discharge
[2019-02-18] MEDS: carvediloL 6.25 MG TABLET PO (13:49)
--- NOTE | 2019-02-18 17:43 | PC.NURSE ---
Desi shift note/Transfer note: Patient transferred to [facility], report given to Kayla GROSS, receiving nurse at [phone]. Medicated for pain and nausea prior to transfer with Zofran and Morphine 2 mg IV. Cont on O2 at 2L with chest tube to water seal, FC in place and Peripheral SL. Family at bedside during transfer and updated regarding plan and location. Report given to [facility] transport team. Home medications retrieved by Lara GROSS, handed to transport team. Patient transferred as ordered in stable condition at 1705.
[2019-02-18] MEDS: ONDANSETRON 4 MG/2 ML INJ IV (17:55)
== END 2019-02-18 17:05 | disposition short-term general hospital (02) | DRG 199 ==
LOC: ED 15:06 → AC 15:10 → ICU 16:32 → AC 02-15 14:33
PROVIDERS: Internal Medicine; Nurse Practitioner Family; Admitting Provider Internal Medicine; Emergency Provider Emergency Medicine; Visit Provider Internal Medicine
DX: J93.9 Pneumothorax, unspecified (principal); E43 Unspecified severe protein-calorie malnutrition; J96.01 Acute respiratory failure with hypoxia; E87.1 Hypo-osmolality and hyponatremia; L97.421 Non-pressure chronic ulcer of left heel and midfoot limited to breakdown of skin; I50.9 Heart failure, unspecified; K70.30 Alcoholic cirrhosis of liver without ascites; I87.8 Other specified disorders of veins; G89.29 Other chronic pain; F11.90 Opioid use, unspecified, uncomplicated; I87.2 Venous insufficiency (chronic) (peripheral); L97.521 Non-pressure chronic ulcer of other part of left foot limited to breakdown of skin; I95.89 Other hypotension; F17.210 Nicotine dependence, cigarettes, uncomplicated; E03.9 Hypothyroidism, unspecified; R60.0 Localized edema
CPT/HCPCS: 36415; 71045; 71250; 80048; 80053; 83605; 83690; 83880; 84145; 84300; 84439; 84443; 85025; 85610; 85730; 87040; 93005; 94760; 94762; 94770; 96361; 96374; 97116; 97163; 97165; 97530; 99285; 99291; 99292; J1644; J2250; J2270; J2405; J3010

== ENCOUNTER 2019-03-23 23:36 | Inpatient (IN) | payer MEDICARE, SELFPAY ==
[2019-02-13 16:55] VITALS: BMI 22.1
[2019-03-23 23:48] VITALS: BP 112/76; PULSE 94; RESP 20; TEMP 36.4; O2SAT 99
[2019-03-24] VITALS (15 sets, daily range): BP systolic 76–101; BP diastolic 47–61; PULSE 84–111; RESP 16–22; TEMP 36.2–37.5; O2SAT 94–97; BMI 25.7
[2019-03-24 00:21] LABS: Add Manual Diff / Slide Review NO; Basophils Absolute Auto 0 /uL (0-100); Basophils Percent Auto 0.2 % (0-2); Eosinophils Absolute Auto 400 /uL (0-450); Eosinophils Percent Auto 3.6 % (2-4); Hematocrit 33.6 % (41-53); Hemoglobin 11.1 g/dL (13.5-17.5); Lymphocytes Absolute Auto 600 /uL (1100-4500); Lymphocytes Percent Auto 6.6 % (25-40); Mean Corpuscular HGB Conc 33.1 % (30-36); Mean Corpuscular Hemoglobin 29.8 PG (26-34); Mean Corpuscular Volume 89.9 fL (80-100); Monocytes Absolute Auto 700 /uL (0-900); Monocytes Percent Auto 6.7 % (3-14); Neutrophils Absolute Auto 8100 /uL (1500-7000); Neutrophils Percent Auto 82.9 % (50-75); Platelet Count 372 X10^3/uL (150-400); Red Blood Cell Count 3.74 X10^6/uL (4.5-5.9); Red Cell Distribution Width 16.7 % (11.6-14.8); White Blood Cell Count 9.7 X10^3/uL (4.5-11.0)
[2019-03-24 00:30] LABS: Alanine Aminotransferase 14 IU/L (<50); Albumin 2.6 g/dL (3.5-5.0); Albumin Globulin Ratio 0.6 (1.0-2.8); Alkaline Phosphatase 135 U/L (38-126); Aspartate Aminotransferase 25 IU/L (17-59); BUN Creatinine Ratio 11.1 (6-22); Bilirubin Total 0.9 mg/dL (0.2-1.3); Blood Urea Nitrogen 10 mg/dL (9-20); Calcium 8.5 mg/dL (8.4-10.2); Carbon Dioxide 28 mmol/L (22-32); Chloride 93 mmol/L (98-107); Estimated Glomerular Filt Rate > 60.0 mL/min (>60); Globulin 4.3 g/dL (1.7-4.1); Glucose 84 mg/dL (70-100); HEMOLYSIS < 15 (0-50); Lactate (Lactic Acid) 1.6 mmol/L (0.7-2.1); Potassium 4.2 mmol/L (3.4-5.1); Sodium 126 mmol/L (137-145); Total Protein 6.9 g/dL (6.3-8.2)
--- NOTE | 2019-03-24 00:48 | ED.EXTPRO ---
HPI - Extremity Problem General Chief complaint: Extremity Problem,Nontraumatic Stated complaint: bilateral leg swelling Time Seen by Provider: 03/24/19 00:48 Source: patient and EMS Mode of arrival: EMS History of Present Illness HPI Narrative: Chief complaint: Bilateral leg edema with cellulitis of his back. History of present illness: The patient is a 58-year-old male who is a chronic alcoholic with cirrhosis of the liver. He has been banded written for a number of months. He has a past history of chronic leg edema, history of cirrhosis of the liver, hypothyroidism, chronic pain syndrome for which she is on methadone, and venous stasis dermatitis involving his legs. The patient states that it on February 13 he presented to the emergency department had a pneumothorax. He was then transferred to the [facility] and then discharged on March 21. The patient states that he has a chapped back and buttocks and chronically weeping legs since being discharged from the [facility]. The patient admits to having neuropathy involving his legs in lower extremities. He has chronic pain and is on methadone. The patient states that he has been sitting in a moist environment and was not taking care of in moved that frequently at the [facility]. When they pulled and moved him he developed a raw buttock. He continues to smoke cigarettes but does not drink alcohol since he was diagnosed to have cirrhosis. He has had no recent fever chills sweats pancreatitis nor esophageal varices. He has had no loss of vision diplopia scotomata as well as shortness of breath cough chest pain palpitations dizziness back pain vomiting diarrhea melena or hematochezia. He claims to have normal bowel movements with intermittent nausea. He has had no other urinary symptoms. Related Data Home Medications Medication Instructions Recorded Confirmed carvedilol [Coreg] 6.25 mg PO BID #0 06/22/11 03/24/19 lactulose [Enulose] 1 dose PO DIRECTED 06/13/18 03/24/19 levothyroxine 137 mcg PO DAILY 06/13/18 03/24/19 methadone 10 mg PO Q12H 06/13/18 03/24/19 morphine 15 mg PO Q8H PRN 06/13/18 03/24/19 spironolactone 200 mg PO DAILY 06/13/18 03/24/19 triamcinolone acetonide 1 applic TOPICAL DIRECTED 06/13/18 03/24/19 methocarbamol 500 mg PO Q6H 03/24/19 03/24/19 Allergies Allergy/AdvReac Type Severity Reaction Status Date / Time codeine [CODEINE] Allergy Unknown Verified 02/13/19 12:22 Review of Systems Review of Systems ROS Unobtainable: All systems reviewed & are unremarkable except as noted in HPI and below Constitutional Constitutional: Denies chills, Denies fatigue, Denies fever(s), Denies frequent falls, Denies lethargy and Denies weakness Eyes Eyes: Denies change in vision, Denies eye discharge, Denies irritation and Denies loss of vision ENT Ears, Nose, Mouth, and Throat: Denies change in voice, Denies dizziness, Denies neck pain, Denies sore throat and Denies throat swelling Cardiovascular Cardiovascular: Denies chest pain, Denies irregular heart rhythm, Denies lightheadedness, Denies palpitations, Denies dyspnea, Denies dyspnea on exertion and Denies orthopnea Respiratory Respiratory: Denies cough, Denies dyspnea, Denies dyspnea on exertion and Denies wheezing Gastrointestinal Gastrointestinal: Denies abdominal pain, Denies change in bowel habits, Denies diarrhea, Denies nausea and Denies vomiting Genitourinary Genitourinary: Denies hematuria, Denies flank pain, Denies urinary incontinence and Denies urinary urgency Musculoskeletal Musculoskeletal: Denies back pain, Denies muscle weakness, Denies neck pain, Denies numbness and Denies tingling Integumentary/Breasts Skin/Breast: Denies pruritus, Denies erythema, Denies rash and Denies wounds Neurologic Neurologic: Denies behavioral changes, Denies confusion, Denies dizziness, Denies frequent falls, Denies loss of vision, Denies numbness, Denies tingling and Denies weakness Psychiatric Psychiatric: Denies anxiety, Denies behavioral changes, Denies confusion, Denies depression, Denies homicidal ideation and Denies suicidal ideation Endocrine Endocrine: Denies fatigue, Denies flushing and Denies palpitations Hematologic/Lymphatic Hematologic/Lymphatic: Denies easy bruising Allergic/Immunologic Allergic/Immunologic: Denies urticaria, Denies throat swelling and Denies wheezing Patient History Medical History Chronic hyponatremia (Acute) Cirrhosis (Acute) Congestive heart failure (Acute) Hypothyroid (Acute) Smoker (Acute) Venous stasis dermatitis of both lower extremities (Acute) Social History household members: family Smoking Status: Current every day smoker alcohol intake: former Smoking Status: Current every day smoker alcohol intake frequency: holidays/special occasions only Substance Use Type: marijuana Exam Narrative Exam Narrative: PHYSICAL EXAM: CONSTITUTIONAL: Awake, Alert, Oriented, Coherent, Cooperative in NAD. Does not appear toxic or ill. The patient is lying in bed in a semi recumbent position and slouching. HEAD: AT/NC EENT: PERRL, FROM of eyes, no discharge, no nystagmus Oral mucosa is moist and pink, posterior pharynx is without erythema or exudate. NECK: Supple, no obvious JVD, Trachea is midline without stridor, no palpable LN or masses. SPINE: No gross deformity, no palpable tenderness of the cervical, thoracic, lumbar or sacral spine. Mild bilateral costovertebral angle tenderness. THORAX: No deformity, retractions, chest wall tenderness, subcutaneous air or crepitice. LUNGS: The patient's lungs are basically clear with bibasilar symmetrical crackles. There was no expiratory rhonchi or wheezes appreciated. HEART: Normal heart tones, regular rhythm and rate without murmur. ABDOMEN: Soft, non-tender, normal bowel sounds without guarding, rebound, rigidity or palpable mass EXTREMITIES: The patient has marked venous stasis dermatitis with violaceous cobblestoning and scattered open ulcers over both lower legs. There is copious fluid drainage from the legs and the crevices between the cobblestoning is devon erythema. There is areas of whitish discoloration that almost looks like a fungus or may actually represent medication. These legs are extremely swollen. SKIN: The patient has 2 decubitus ulcers over the buttocks, over the areas of the ischial tuberosities that are open and draining copious fluids. There is an erythematous cellulitis extending from the buttocks to the mid posterior back secondary to the patient lying in a wet environment. NEURO: Awake, alert, oriented, conversive, cranial nerves II-XII are symmetrical and normal, moves all 4 extremities Initial Vital Signs Initial Vital Signs: Vital Signs Temperature 97.5 F L 03/23/19 23:48 Pulse Rate 94 H 03/23/19 23:48 Respiratory Rate 20 03/23/19 23:48 Blood Pressure 112/76 03/23/19 23:48 Pulse Oximetry 99 03/23/19 23:48 Const General: cooperative and well developed Nutritional Appearance: well nourished [facility] Head: normocephalic and atraumatic Ears: external ears normal and TM's normal bilaterally Nose: external nose normal and No nasal discharge Face and sinus: sinuses nontender, face symmetric, no sinus tenderness and No dry mucous membranes Mouth: oral mucosae normal and moist mucous membranes Teeth and gingiva: dentition normal Throat: tonsils normal and uvula midline Eyes General: appearance normal, both eyes and all related structures Eyelids: eyelids normal Conjunctivae: conjunctivae normal Sclera: sclerae normal Pupils: PERRL EOM: EOM intact bilaterally Neck Neck: normal visual inspection, trachea midline, No lymphadenopathy, No midline deformity and No JVD Lymphatic: No lymphedema Chest Chest: normal inspection of the chest Resp Effort & Inspection: normal respiratory effort, able to speak in complete sentences, no respiratory distress and no use of accessory muscles Auscultation: clear to auscultation bilaterally, no rales, no rhonchi and no wheezes Cardio Rate: regular rate Rhythm: regular rhythm Heart Sounds: no click, no gallops, no murmurs and no rubs Pulses: normal peripheral pulses GI Inspection: non-distended Palpation: soft, no hepatosplenomegaly, No guarding, No pulsatile mass and No tender Auscultation: normal bowel sounds Back/Spine/Pelvis Back: No CVA tenderness Cervical Spine: cervical ROM normal and No pain with cervical ROM Thoracic/Lumbar Spine: thoracic and lumbar spine normal to inspection Skin General: no rashes or lesions noted, No jaundice and No petechiae Neuro General: alert, oriented x3, gait normal and no focal motor deficits Speech: speech normal Extrem General: full ROM, no clubbing, cyanosis or edema, no pedal edema and no calf tenderness Psych Appearance: well kempt Mental Status: mental status grossly normal Attitude: cooperative Thought Content: normal and suicidality Judgment: judgment good Course Orders Ordered: Bisacodyl (Dulcolax) 10 mg MA DAILY PRN PRN Reason: Constipation Carvedilol (Coreg) 6.25 mg PO BID DANGELO Last Admin: 03/25/19 07:44 Dose: Not Given Documented by: [email or web address] Admin: 03/24/19 21:28 Dose: Not Given Documented by: Admin: 03/24/19 10:17 Dose: 6.25 mg Documented by: [email or web address] Docusate Sodium (Colace) 100 mg PO BID PRN PRN Reason: Constipation Furosemide (Lasix) 40 mg IV DAILY [facility] Last Admin: 03/25/19 09:27 Dose: 40 mg Documented by: [email or web address] Meropenem (Merrem) 1 gm in 50 mls @ 100 mls/hr IV Q8H [facility] Last Infusion: 03/25/19 11:31 Dose: 100 mls/hr Documented by: [email or web address] Admin: 03/25/19 10:40 Dose: 100 mls/hr Documented by: [email or web address] Infusion: 03/25/19 05:31 Dose: 0 mls/hr Documented by: Admin: 03/25/19 02:09 Dose: 100 mls/hr Documented by: MICHAEL Lactulose (Enulose) 10 gm PO TID [facility] Last Admin: 03/25/19 13:25 Dose: Not Given Documented by: [email or web address] Admin: 03/25/19 09:28 Dose: 10 gm Documented by: [email or web address] Admin: 03/24/19 21:12 Dose: 10 gm Documented by: [email or web address] Admin: 03/24/19 14:23 Dose: Not Given Documented by: [email or web address] Admin: 03/24/19 10:17 Dose: 10 gm Documented by: [email or web address] Levothyroxine Sodium (Synthroid) 137 mcg PO 0600 [facility] Last Admin: 03/25/19 05:30 Dose: 137 mcg Documented by: Admin: 03/24/19 10:18 Dose: 137 mcg Documented by: [email or web address] Methadone HCl (Methadone) 10 mg PO BID [facility] Last Admin: 03/25/19 07:44 Dose: 10 mg Documented by: [email or web address] Admin: 03/24/19 21:10 Dose: 10 mg Documented by: [email or web address] Admin: 03/24/19 08:58 Dose: 10 mg Documented by: [email or web address] Midodrine (Midodrine) 10 mg PO 0600,1200,1800 [facility] Last Admin: 03/25/19 11:18 Dose: 10 mg Documented by: [email or web address] Admin: 03/25/19 05:30 Dose: 10 mg Documented by: Admin: 03/24/19 17:31 Dose: 10 mg Documented by: [email or web address] Admin: 03/24/19 13:44 Dose: 10 mg Documented by: [email or web address] Admin: 03/24/19 08:59 Dose: 10 mg Documented by: [email or web address] Admin: 03/24/19 06:37 Dose: Not Given Documented by: FARHEEN Morphine Sulfate (Ms Contin) 30 mg PO BID [facility] Last Admin: 03/25/19 07:44 Dose: 30 mg Documented by: [email or web address] Admin: 03/24/19 21:11 Dose: 30 mg Documented by: [email or web address] Admin: 03/24/19 08:59 Dose: 30 mg Documented by: [email or web address] Naloxone HCl (Narcan) 0.2 mg IV Q2MIN PRN PRN Reason: Opiate Reversal Stored In Pharmacy 1 each PO PRN PRN PRN Reason: PROTOCOL Promethazine HCl (Phenadoz) 12.5 mg MA Q6HR PRN PRN Reason: Nausea And Vomiting Spironolactone (Aldactone) 12.5 mg PO DAILY [facility] Last Admin: 03/25/19 09:28 Dose: 12.5 mg Documented by: [email or web address] Tamsulosin HCl (Flomax) 0.4 mg PO DAILY [facility] Last Admin: 03/25/19 07:46 Dose: 0.4 mg Documented by: [email or web address] Admin: 03/24/19 08:58 Dose: 0.4 mg Documented by: [email or web address] Discontinued Medications Furosemide (Lasix) 80 mg IV DAILY [facility] Last Admin: 03/25/19 13:20 Dose: Not Given Documented by: Admin: 03/24/19 08:57 Dose: 80 mg Documented by: [email or web address] Furosemide (Lasix) 40 mg IV NOW ONE Stop: 03/24/19 04:50 Last Admin: 03/24/19 06:15 Dose: 40 mg Documented by: FARHEEN Sodium Chloride (Normal Saline 0.9%) 1,000 mls @ 1,000 mls/hr IV BOLUS ONE Stop: 03/24/19 02:31 Last Infusion: 03/24/19 04:35 Dose: 0 mls/hr Documented by: Admin: 03/24/19 04:02 Dose: 1,000 mls/hr Documented by: NIRU Cefazolin Sodium 3 gm/ Sodium (Chloride) 100 mls @ 200 mls/hr IV NOW ONE Stop: 03/24/19 03:26 Last Infusion: 03/24/19 04:38 Dose: 0 mls/hr Documented by: Admin: 03/24/19 04:27 Dose: 200 mls/hr Documented by: NIRU Cefazolin Sodium/Dextrose (Ancef) 1 gm in 50 mls @ 100 mls/hr IV Q8H [facility] Last Infusion: 03/24/19 12:50 Dose: 100 mls/hr Documented by: Admin: 03/24/19 12:19 Dose: 100 mls/hr Documented by: ANNA Meropenem 1 gm/ Sodium (Chloride) 100 mls @ 200 mls/hr IV Q8H [facility] Last Admin: 03/24/19 17:47 Dose: 200 mls/hr Documented by: ALBERT Spironolactone (Aldactone) 25 mg PO DAILY [facility] Last Admin: 03/25/19 13:20 Dose: Not Given Documented by: Admin: 03/24/19 08:58 Dose: 25 mg Documented by: EKARIANNA Vital Signs Vital signs: Vital Signs - 8 hr 03/23/19 23:48 Temperature 97.5 F L Pulse Rate 94 H Respiratory Rate 20 Blood Pressure [Left Arm] 112/76 Pulse Oximetry 99 MDM - Extremity (Nontraumatic) Lab Data Result diagrams: 03/25/19 06:13 03/25/19 06:13 Labs: Lab Results 03/23/19 03/23/19 03/23/19 Range/Units 23:53 23:53 23:53 WBC 9.7 (4.5-11.0) X10^3/uL RBC 3.74 L (4.5-5.9) X10^6/uL Hgb 11.1 L (13.5-17.5) g/dL Hct 33.6 L (41-53) % MCV 89.9 (80-100) fL MCH 29.8 (26-34) PG MCHC 33.1 (30-36) % RDW 16.7 H (11.6-14.8) % Plt Count 372 (150-400) X10^3/uL Neut % (Auto) 82.9 H (50-75) % Lymph % (Auto) 6.6 L (25-40) % [place] % (Auto) 6.7 (3-14) % Eos % (Auto) 3.6 (2-4) % Baso % (Auto) 0.2 (0-2) % Neut # (Auto) 8100 H (9858-9584) /uL Lymph # (Auto) 600 L (7349-7955) /uL [place] # (Auto) 700 (0-900) /uL Eos # (Auto) 400 (0-450) /uL Baso # (Auto) 0 (0-100) /uL ESR (0-15) MM/HR PT (10.1-12.7) SECONDS INR (0.9-1.3) Sodium 126 L (137-145) mmol/L Potassium 4.2 (3.4-5.1) mmol/L Chloride 93 L (98-107) mmol/L Carbon Dioxide 28 (22-32) mmol/L BUN 10 (9-20) mg/dL Creatinine 0.90 (0.66-1.25) mg/dL Estimated GFR > 60.0 (>60) mL/min BUN/Creatinine Ratio 11.1 (6-22) Glucose 84 (70-100) mg/dL Lactate (0.7-2.1) mmol/L Calcium 8.5 (8.4-10.2) mg/dL Total Bilirubin 0.9 (0.2-1.3) mg/dL AST 25 (17-59) IU/L ALT 14 (<50) IU/L Alkaline Phosphatase 135 H (38-126) U/L Total Creatine Kinase (55-170) U/L C-Reactive Protein (<1.0) mg/dL Total Protein 6.9 (6.3-8.2) g/dL Albumin 2.6 L (3.5-5.0) g/dL Globulin 4.3 H (1.7-4.1) g/dL Albumin/Globulin Ratio 0.6 L (1.0-2.8) Procalcitonin 0.10 (<0.5) ng/mL 03/23/19 03/23/19 03/23/19 Range/Units 23:53 23:53 23:53 WBC (4.5-11.0) X10^3/uL RBC (4.5-5.9) X10^6/uL Hgb (13.5-17.5) g/dL Hct (41-53) % MCV (80-100) fL MCH (26-34) PG MCHC (30-36) % RDW (11.6-14.8) % Plt Count (150-400) X10^3/uL Neut % (Auto) (50-75) % Lymph % (Auto) (25-40) % [place] % (Auto) (3-14) % Eos % (Auto) (2-4) % Baso % (Auto) (0-2) % Neut # (Auto) (0245-2654) /uL Lymph # (Auto) (5376-1470) /uL [place] # (Auto) (0-900) /uL Eos # (Auto) (0-450) /uL Baso # (Auto) (0-100) /uL ESR 13 (0-15) MM/HR PT (10.1-12.7) SECONDS INR (0.9-1.3) Sodium (137-145) mmol/L Potassium (3.4-5.1) mmol/L Chloride (98-107) mmol/L Carbon Dioxide (22-32) mmol/L BUN (9-20) mg/dL Creatinine (0.66-1.25) mg/dL Estimated GFR (>60) mL/min BUN/Creatinine Ratio (6-22) Glucose (70-100) mg/dL Lactate 1.6 (0.7-2.1) mmol/L Calcium (8.4-10.2) mg/dL Total Bilirubin (0.2-1.3) mg/dL AST (17-59) IU/L ALT (<50) IU/L Alkaline Phosphatase (38-126) U/L Total Creatine Kinase < 20 L (55-170) U/L C-Reactive Protein 3.0 H (<1.0) mg/dL Total Protein (6.3-8.2) g/dL Albumin (3.5-5.0) g/dL Globulin (1.7-4.1) g/dL Albumin/Globulin Ratio (1.0-2.8) Procalcitonin (<0.5) ng/mL 03/23/19 Range/Units 23:53 WBC (4.5-11.0) X10^3/uL RBC (4.5-5.9) X10^6/uL Hgb (13.5-17.5) g/dL Hct (41-53) % MCV (80-100) fL MCH (26-34) PG MCHC (30-36) % RDW (11.6-14.8) % Plt Count (150-400) X10^3/uL Neut % (Auto) (50-75) % Lymph % (Auto) (25-40) % [place] % (Auto) (3-14) % Eos % (Auto) (2-4) % Baso % (Auto) (0-2) % Neut # (Auto) (2168-2420) /uL Lymph # (Auto) (1193-9858) /uL [place] # (Auto) (0-900) /uL Eos # (Auto) (0-450) /uL Baso # (Auto) (0-100) /uL ESR (0-15) MM/HR PT 14.7 H (10.1-12.7) SECONDS INR 1.3 (0.9-1.3) Sodium (137-145) mmol/L Potassium (3.4-5.1) mmol/L Chloride (98-107) mmol/L Carbon Dioxide (22-32) mmol/L BUN (9-20) mg/dL Creatinine (0.66-1.25) mg/dL Estimated GFR (>60) mL/min BUN/Creatinine Ratio (6-22) Glucose (70-100) mg/dL Lactate (0.7-2.1) mmol/L Calcium (8.4-10.2) mg/dL Total Bilirubin (0.2-1.3) mg/dL AST (17-59) IU/L ALT (<50) IU/L Alkaline Phosphatase (38-126) U/L Total Creatine Kinase (55-170) U/L C-Reactive Protein (<1.0) mg/dL Total Protein (6.3-8.2) g/dL Albumin (3.5-5.0) g/dL Globulin (1.7-4.1) g/dL Albumin/Globulin Ratio (1.0-2.8) Procalcitonin (<0.5) ng/mL Discharge Plan Departure Patient Disposition: Admitted As Inpatient Clinical Impression: Venous stasis dermatitis of both lower extremities Cirrhosis Qualifiers: Hepatic cirrhosis type: alcoholic cirrhosis Ascites presence: unspecified Qualified Code(s): K70.30 - Alcoholic cirrhosis of liver without ascites Cellulitis Qualifiers: Site of cellulitis: trunk Site of cellulitis of trunk: back Qualified Code(s): L03.312 - Cellulitis of back [any part except buttock] Decubitus ulcer, buttock Qualifiers: Pressure injury stage: unspecified pressure injury stage Laterality: unspecified laterality Qualified Code(s): L89.309 - Pressure ulcer of unspecified buttock, unspecified stage Bilateral leg ulcer Qualifiers: Non-pressure ulcer stage: unspecified non-pressure ulcer stage Qualified Code(s): L97.919 - Non-pressure chronic ulcer of unspecified part of right lower leg with unspecified severity Discharge Date/Time: 03/24/19 04:33 Admit Date/Time: 03/24/19 03:22 Admit Provider: Jose Chow
[2019-03-24 02:06] LABS: Creatine Kinase < 20 U/L (55-170)
[2019-03-24 02:09] LABS: Erythrocyte Sedimentation Rate 13 MM/HR (0-15)
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
[2019-03-24] MEDS: SODIUM CHLORIDE 0.9% 1,000 ML 1000 ML IV (04:02)
[2019-03-24 04:11] LABS: INR 1.3 (0.9-1.3); Prothrombin Time 14.7 SECONDS (10.1-12.7)
--- NOTE | 2019-03-24 04:16 | PM.HP.1 ---
History of Present Illness History of Present Illness Time Patient Seen: 03:44 Chief complaint: bilateral leg swelling Narrative: Mr. Delvin Parkinson is a 58 year old male with past medical history significant for congestive heart failure of unknown type, alcoholic cirrhosis, hypothyroidism, chronic bilateral lower extremity venous stasis, chronic hyponatremia, chronic pain and chronic opiate use who presents to the ER with worsening leg edema and wound weeping. The patient has long history of venous stasis and on last admission was reported as actually doing better. The patient was subsequently transferred to [facility] related to pneumothorax and possible thoracic surgery when upon discharge on 03/15/2019 he was told to stop his spironolactone and Lasix and was told it may help his sodium level. The patient reports that he has experienced increasing leg pain, redness and edema since discharge reporting that the weeping started during his transfer back home. The patient denies complaints of fevers or chills, headaches or dizziness and has no nasal congestion or sore throat. He denies complaints of chest pain or palpitations and has no shortness of breath cough or wheezing. She denies abdominal pain, nausea or vomiting. Reports no difficulty stooling using lactulose 3 times daily for his liver cirrhosis. He denies urinary complaints. Upon arrival the patient is afebrile with temperature 97.5?, heart rate of 94, blood pressure 112/76, respirations 20 saturating 99% on room air. No imaging was completed and on laboratory analysis he has a white count of 9.7 hemoglobin 11.1, hematocrit of 33.6 and platelets 372. Continues to be hyponatremic with a sodium of 126 with a potassium of 4.2 and BUN of 10 and creatinine of 0.9. His nonfasting glucose is 84. His LFTs reveal a bilirubin of 0.9, AST of 25, ALT of 14 an elevated alkaline phosphatase of 135. Has lactic acid of 1.6 and procalcitonin is 0.10. Sed rate is 13 and CRP is elevated at 3.0. The patient she has 3 g of Ancef IV in the emergency department for cellulitis and is admitted to the medicine service for continuing evaluation treatment. Patient History Medical History Chronic hyponatremia (Acute) Cirrhosis (Acute) Congestive heart failure (Acute) Hypothyroid (Acute) Smoker (Acute) Venous stasis dermatitis of both lower extremities (Acute) Family & Social History Social History: household members family Tobacco & Substance use: Smoking Status Current every day smoker alcohol intake frequency holiday/special occasion Substance Use Type marijuana Comment: The patient currently lives by himself and has caregiver support. Reports that his father before he was born and has no knowledge of his history. His mother age 74 from congestive heart failure. He has 1 brother and 1 sister who both have of from unknown reasons. Smoking: Patient is smoked 3-4 cigarettes in the 1 week since discharge from [facility] Alcohol: The patient no longer drinks alcohol quitting in 2008 when diagnosed with cirrhosis. Substance use: The patient smokes marijuana nightly to assist with pain management and sleep. Advanced directives: The patient wishes to be full code and designates Eloise Rush to be his surrogate decision maker. Meds Home Medications and Allergies Home Medications Medication Instructions Recorded Confirmed Type carvedilol [Coreg] 6.25 mg PO BID #0 06/22/11 02/13/19 History lactulose 1 dose PO DIRECTED 06/13/18 02/13/19 History levothyroxine 137 mcg PO DAILY 06/13/18 02/13/19 History methadone 10 mg PO Q12H 06/13/18 02/13/19 History morphine 15 mg PO Q8H PRN 06/13/18 02/13/19 History spironolactone 200 mg PO DAILY 06/13/18 02/13/19 History triamcinolone acetonide 1 applic TOPICAL DIRECTED 06/13/18 02/13/19 History Allergies Allergy/AdvReac Type Severity Reaction Status Date / Time codeine [CODEINE] Allergy Unknown Verified 02/13/19 12:22 Exam Vital Signs (past 8 hours): - 03/23/19 23:48 Temperature 97.5 F L Pulse Rate 94 H Respiratory Rate 20 Blood Pressure [Left Arm] 112/76 Pulse Oximetry 99 Oxygen Delivery Method Room Air Narrative Exam Narrative: GENERAL APPEARANCE: Well-developed, chronically ill-appearing male, lying semi recumbent in bed in no acute distress SKIN: multiple bruises and ecchymoses, severe venous stasis changes of his lower extremity with weeping, scaly patches, with redness and warmth, no tenderness on palpation secondary to neuropathy HEENT: Normocephalic, pleural, sclera are anicteric, conjunctivae moist. EOMs intact without nystagmus, no rhinorrhea, oral pharynx appears pink and moist. NECK: Decreased range of motion, no thyromegaly no tenderness or masses on palpation CHEST: Kyphotic chest with scoliosis, leans to left, symmetrical movement, breathing nonlabored, no accessory muscle use. LUNGS: clear to auscultation bilaterally, no coarseness crackles or wheezing, no cough present CARDIOVASCULAR: regular rate and rhythm, no murmurs, gallops, rubs. Peripheral pulses not palpable due to 3+ bilateral edema ABDOMEN: Soft and nontender, no ascites appreciated, liver palpable right upper quadrant, active bowel tones MUSCULOSKELETAL: There was no tenderness or effusions noted. Muscle strength and tone were normal. EXTREMITIES: No cyanosis, clubbing or edema. NEUROLOGIC: Alert and oriented x 3. Normal affect. Strength is 5/5 upper extremities and 4/5 lower extremities Bilaterally, patient reports bilateral lower extremity neuropathy. PSYCH: Good eye contact, cooperative, stable affect and behavior Objective Labs Result Diagrams: 03/23/19 23:53 03/23/19 23:53 Labs: Laboratory Results - last 24 hr 03/23/19 03/23/19 03/23/19 23:53 23:53 23:53 WBC 9.7 RBC 3.74 L Hgb 11.1 L Hct 33.6 L MCV 89.9 MCH 29.8 MCHC 33.1 RDW 16.7 H Plt Count 372 Neut % (Auto) 82.9 H Lymph % (Auto) 6.6 L [place] % (Auto) 6.7 Eos % (Auto) 3.6 Baso % (Auto) 0.2 Neut # (Auto) 8100 H Lymph # (Auto) 600 L [place] # (Auto) 700 Eos # (Auto) 400 Baso # (Auto) 0 ESR Sodium 126 L Potassium 4.2 Chloride 93 L Carbon Dioxide 28 BUN 10 Creatinine 0.90 Estimated GFR > 60.0 BUN/Creatinine Ratio 11.1 Glucose 84 Lactate Calcium 8.5 Total Bilirubin 0.9 AST 25 ALT 14 Alkaline Phosphatase 135 H Total Creatine Kinase C-Reactive Protein Total Protein 6.9 Albumin 2.6 L Globulin 4.3 H Albumin/Globulin Ratio 0.6 L Procalcitonin 0.10 03/23/19 03/23/19 03/23/19 23:53 23:53 23:53 WBC RBC Hgb Hct MCV MCH MCHC RDW Plt Count Neut % (Auto) Lymph % (Auto) [place] % (Auto) Eos % (Auto) Baso % (Auto) Neut # (Auto) Lymph # (Auto) [place] # (Auto) Eos # (Auto) Baso # (Auto) ESR 13 Sodium Potassium Chloride Carbon Dioxide BUN Creatinine Estimated GFR BUN/Creatinine Ratio Glucose Lactate 1.6 Calcium Total Bilirubin AST ALT Alkaline Phosphatase Total Creatine Kinase < 20 L C-Reactive Protein 3.0 H Total Protein Albumin Globulin Albumin/Globulin Ratio Procalcitonin Assessment & Plan Assessment & Plan narrative: Is a 50-year-old male patient who presents to the ER for increasing leg pain swelling and edema after having Lasix and spironolactone discontinued on discharge from [facility] where he was admitted for treatment of pneumothorax. 1. Acute cellulitis bilateral lower extremities, present on admission, active Patient has worsening redness and edema is bilateral lower extremities with increased pain and warmth. White count is 9.7 with lactate 1.6 and procalcitonin 0.10 and a normal sed rate at 13 and elevated CRP at 3.0. Ceftriaxone 3 g IV given in the ER, Continue ceftriaxone 1 g every 8 hours. Will monitor CBC and procalcitonin. 2. Chronic venous stasis bilateral lower extremities, present on admission, active Patient had previously had improving venous stasis at time of last admission . Patient subsequently treated at [facility] and told to discontinue Lasix and spironolactone. Ordered furosemide 40 mg x 1 now Continue patient's home regimen of furosemide 80 mg daily and spironolactone 25 mg daily. 3. Congestive heart failure, unknown type, chronic, present on admission, active History of congestive heart failure, no echocardiogram has been obtained, Patient with worsening venous stasis however no pulmonary complications, pulmonary edema and has been stable. Will reinitiate the patient's home regimen of Lasix and spironolactone. 4. Alcoholic cirrhosis, chronic, stable. Patient is cognitively alert conversant and interactive. Total bili is 0.9, AST 25, ALT 14 and alkaline phosphatase 135. Adequate platelet count 372, albumin is 2.6. Stable INR at 1.3. Continue patient's home regimen of lactulose 10 g 3 times daily. 5. Chronic hyponatremia, present on admission, stable Sodium on admission is 126, baseline sodium is 123-124. No perceived benefit from reduction or elimination of diuretics. Diuretic therapy is re-initiated. Will monitor chemistries 6. Acquired Hypothyroidism, chronic, stable. continue patient's home regimen of levothyroxine 137 mcg daily. 7. Opiate dependence, present on admission, stable. Will continue the patient's home regimen of methadone 10 mg every 12 hours. The patient is morphine dose has been increased to 30 mg twice daily VTE prophylaxis: Contraindicated due to bilateral lower extremity cellulitis and elevated INR. Diet: Low-sodium, low-fat IVF: Saline lock The patient is admitted to the severity of his symptoms and need for ongoing treatment to prevent complications or adverse events. The patient is admitted as an inpatient with expected of stay to be greater than 2 midnights. Scores GCS Aarti coma scale eye opening: Spontaneous [place] coma scale verbal response: Orientated Aarti coma scale motor response: Obey commands [place] coma scale total score: 15
[2019-03-24] MEDS: CEFAZOLIN VIAL 3 GM in SODIUM CHLORIDE 0.9% 100 ML 200 ML IV (04:27)
--- NOTE | 2019-03-24 04:38 | PC.NURSE ---
normal saline and abx to continue in [facility] care
[2019-03-24] MEDS: FUROSEMIDE 40 MG/4 ML VIAL IV (06:15)
--- NOTE | 2019-03-24 06:20 | PC.NURSE ---
Admitted to room 206 with multiple diagnoses, Oriented to his room. Instructed to call for assistance if he needed to get OOB. Reported had a fall @ home, bed alarm activated. Valuables are secured at the [facility] , given to co-ordinator Tasneem GROSS & 3 bottles of his medications are placed @ the night pharmacy. Will report to day RN.
[2019-03-24] MEDS: FUROSEMIDE 40 MG/4 ML VIAL 80 MG IV (08:57)
[2019-03-24] MEDS: METHADONE 10 MG TABLET PO ×2 (08:58→21:10)
[2019-03-24] MEDS: SPIRONOLACTONE 25 MG TABLET PO (08:58)
[2019-03-24] MEDS: TAMSULOSIN 0.4 MG CAPSULE PO (08:58)
[2019-03-24] MEDS: MIDODRINE HCL 5 MG TABLET 10 MG PO ×3 (08:59→17:31)
[2019-03-24] MEDS: MORPHINE ER 30 MG TABLET PO ×2 (08:59→21:11)
[2019-03-24] MEDS: carvediloL 6.25 MG TABLET PO (10:17)
[2019-03-24] MEDS: LACTULOSE 20 GM/30 ML SOLUTION 10 GM PO ×2 (10:17→21:12)
[2019-03-24] MEDS: LEVOTHYROXINE 137 MCG TABLET PO (10:18)
--- NOTE | 2019-03-24 10:47 | CM.DANOTE ---
DCP: Case received, EMR reviewed and met with patient. Introduced self and role. Was able to converse with patient to obtain information regarding baseline health history, activity level, and living situation. DCP assessment completed with information currently available. Patient is a 58 year old female who admitted early this morning to the care of the hospitalist team. PCP: [facility]. Payer: confirmed: Medicare. Patient came to the hospital via ambulance secondary to increased redness and swelling to patient's lower extremity. Patient had recently been discharged from [facility] secondary to pneumothorax. Patient had been here at the hospital in February. Patient has history of venous stasis lymphadema, and has had leg wraps. He resides in [place], and his nephew lives with him, and is his primary child day care teacher. Patient gets around with a walker. He is alert and oriented. Hua Rush is patient's nephew, decision maker, but not POA. Patient stated that Dr. Meehan has been his primary care doctor at [facility], and they were going to assign him a different provider, for he left. Confirmed with patient that his nephew helps him with meals, showers. Patient does not drive. Patient also has history of liver cirrhosis as well. P: DCP to continue to follow closely. At this point, is not known if patient will need to be on prolonged IV antibiotics. He may be getting surgical debridement while he is here. Diane Summers RN/Bonding Machine Setter
--- NOTE | 2019-03-24 10:50 | PM.EVENT ---
Event Note Date Patient Seen: 03/24/19 Event Note: Patient seen and examined, he is well known to me from his prior admission. He reports at discharge about 10 days ago from [facility] he developed drainage from bilateral lower extremities he has had increasing swelling since that time. He does report minimal pain. The patient has is serous drainage coming from both lower extremities, he also has a sacral decubitus ulcer with some drainage as well. He remains hypo natremia, and has hypotension likely related to his liver disease. I have consult to the wound care clinic. I am awaiting Dr. Vyas to call back. We will arrange either an inpatient consultation for today or tomorrow or have the patient follow-up in the wound care clinic for possible debridement. Will continue his usual home medications at this time for now.
[2019-03-24] MEDS: CEFAZOLIN 1 GM/50 ML FROZ.PIGGY IV (12:19)
--- NOTE | 2019-03-24 15:37 | PC.NURSE ---
Skin: Skin viewed by MD, has had his picture taken. Wound on buttock, part is a stage 2 pressure injury but much cant be seen due to thick grn type scabbing to buttock area. Also has either a pressure injury or skin tear to the back. aware and didier is coming to see pt this evening after hours. New IV placed. Pt also has decreased bp and call placed to md for BP parameter w/meds. No need to call unless bp is less than 80 systolic. Has been in the mid 80's this afternoon. Minimal pain. New IV today. MD is aware of low bps. Cont w/poc.
--- NOTE | 2019-03-24 17:00 | P.CONS_ITS ---
History of Present Illness Consult details Date Patient Seen: 03/24/19 Time Patient Seen: 17:00 Chief complaint: bilateral leg swelling Reason for consult: Assess BLE for debridement. Requesting provider: Kathy Malone Narrative: History of Present Illness (HPI) Wound #1 Location: Bilateral buttocks Duration: About 1 month Severity: Partial thickness Context: Moisture associated skin damage Wound #2 Location: Bilateral lower extremities Duration: About 10 days ago Severity: Full thickness Context: Venous insufficiency/Infection. 58 year old male with increased LE swelling and weeping since diuretic change upon discharge from [facility] on 03/15/19. The LE have developed scattered open wounds. He attributes his skin breakdown on his buttocks to poor care at [facility], including rough treatment during transfers, inadequate frequency of position changes in bed, and a diarrheal episode that was not addressed in a timely fashion, resulting in prolonged exposure. His diuretics have been re-initiated. He has been diagnosed with cellulitis and is being treated with IV cephalosporin. Meds Home Medications and Allergies Home Medications Medication Instructions Recorded Confirmed Type carvedilol [Coreg] 6.25 mg PO BID #0 06/22/11 03/24/19 History lactulose [Enulose] 1 dose PO DIRECTED 06/13/18 03/24/19 History levothyroxine 137 mcg PO DAILY 06/13/18 03/24/19 History methadone 10 mg PO Q12H 06/13/18 03/24/19 History morphine 15 mg PO Q8H PRN 06/13/18 03/24/19 History spironolactone 200 mg PO DAILY 06/13/18 03/24/19 History triamcinolone acetonide 1 applic TOPICAL DIRECTED 06/13/18 03/24/19 History methocarbamol 500 mg PO Q6H 03/24/19 03/24/19 History Allergies Allergy/AdvReac Type Severity Reaction Status Date / Time codeine [CODEINE] Allergy Unknown Verified 02/13/19 12:22 Review of Systems Constitutional Constitutional: Denies chills, Denies fever(s) and Denies night sweats Cardiovascular Cardiovascular: Reports leg swelling Gastrointestinal Gastrointestinal: Denies fecal incontinence Genitourinary Genitourinary: Denies urinary incontinence Musculoskeletal Musculoskeletal: Reports numbness (Decreased sensation BLE distal to knees.) Integumentary/Breasts Skin/Breast: Reports erythema and Reports wounds Neurologic Neurologic: Reports numbness (Decreased sensation BLE distal to knees.) Exam Vital Signs (past 8 hours): - 03/26/19 12:17 03/26/19 15:16 Temperature 98.2 F Pulse Rate 96 H Respiratory Rate 18 Blood Pressure 90/64 Pulse Oximetry 95 96 Oxygen Delivery Method Room Air Oxygen Flow Rate 0 Const General: cooperative and frail appearing Nutritional Appearance: malnourished [facility] Head: normal to inspection Ears: hearing grossly normal bilaterally Nose: external nose normal Eyes Sclera: sclerae normal Neck Neck: normal visual inspection Resp Effort & Inspection: normal respiratory effort Cardio Rate: regular rate Rhythm: regular rhythm Skin General: crusts (BLE), erythema (BLE), warm (BLE) and other (Severe scaling BLE consistent with venous stasis dermatitis.) Wounds: wounds noted Scattered open wounds BLE (full thickness) drainage green and purulent, malodorous, open and with surrounding erythema, Bilateral buttock partial thickness breakdown drainage, malodorous, open and with surrounding erythema Nails: discolored (Green) Neuro General: alert, awake, oriented x3, moves all extremities and unable to assess gait Cranial Nerves: CN's II-XI intact bilaterally Speech: speech normal Motor: muscle tone normal throughout and other (Decreased strength BLE.) Sensory Exam: sensory deficits noted (Decreased sensation BLE, distal to knee.) Extrem Right lower extremity: edema Left lower extremity: edema Psych Speech and Movement: speech clear Mood: euthymic mood Affect: normal affect Attitude: cooperative Judgment: fair Objective Labs Result Diagrams: 03/26/19 06:35 03/26/19 06:35 Labs: Laboratory Results - last 24 hr 03/26/19 03/26/19 06:35 06:35 WBC 8.3 RBC 3.32 L Hgb 9.8 L Hct 29.5 L MCV 88.8 MCH 29.6 MCHC 33.3 RDW 16.7 H Plt Count 281 Neut % (Auto) 66.4 Lymph % (Auto) 14.4 L [place] % (Auto) 9.7 Eos % (Auto) 8.8 H Baso % (Auto) 0.7 Neut # (Auto) 5500 Lymph # (Auto) 1200 [place] # (Auto) 800 Eos # (Auto) 700 H Baso # (Auto) 100 Sodium 125 L Potassium 3.8 Chloride 89 L Carbon Dioxide 29 BUN 16 Creatinine 0.80 Estimated GFR > 60.0 BUN/Creatinine Ratio 20.0 Glucose 74 Calcium 8.0 L Assessment & Plan Assessment & Plan narrative: Assessment: BLE and buttock cellulitis. Features of Pseudomonas infection. Venous insufficiency MASD/shearing (Bilateral buttocks) Plan: Recommendations discussed with Dr. Malone. Wound swab for c&s. Adjust antibiotic coverage to include targeting for Pseudomonas. Offloading mattress/mattress topper (EHOB). Absorbent dressings to BLE/Moisture barrier cream to buttocks. No need for inpatient debridement. We are happy have him follow-up in the [facility] once discharged.
[2019-03-24] MEDS: MEROPENEM 1 GM in SODIUM CHLORIDE 0.9% 100 ML 200 ML IV (17:47)
--- NOTE | 2019-03-24 23:22 | PC.NURSE ---
coreg held due to low BP. Dr. Wu came for consult. pt able to turn by himself in bed. q2turn. BLE elevated, BLE weepy, placed blue chucks under. bed alarm active. voiding and eliminating without difficulty. call light in reach.
[2019-03-25] VITALS (16 sets, daily range): BP systolic 78–100; BP diastolic 53–71; PULSE 81–93; RESP 16–20; TEMP 36.6–36.9; O2SAT 94–98
[2019-03-25] MEDS: MEROPENEM 1 GM/50 ML PIGGYBACK IV ×3 (02:09→17:35)
[2019-03-25] MEDS: MIDODRINE HCL 5 MG TABLET 10 MG PO ×3 (05:30→17:34)
[2019-03-25] MEDS: LEVOTHYROXINE 137 MCG TABLET PO (05:30)
[2019-03-25 06:31] LABS: Add Manual Diff / Slide Review NO; Basophils Absolute Auto 100 /uL (0-100); Basophils Percent Auto 0.6 % (0-2); Eosinophils Absolute Auto 600 /uL (0-450); Eosinophils Percent Auto 6.2 % (2-4); Hematocrit 29.5 % (41-53); Hemoglobin 9.9 g/dL (13.5-17.5); Lymphocytes Absolute Auto 1100 /uL (1100-4500); Lymphocytes Percent Auto 12.2 % (25-40); Mean Corpuscular HGB Conc 33.5 % (30-36); Mean Corpuscular Hemoglobin 29.9 PG (26-34); Monocytes Absolute Auto 1000 /uL (0-900); Monocytes Percent Auto 10.3 % (3-14); Neutrophils Absolute Auto 6600 /uL (1500-7000); Neutrophils Percent Auto 70.7 % (50-75); Platelet Count 302 X10^3/uL (150-400); Red Blood Cell Count 3.32 X10^6/uL (4.5-5.9); Red Cell Distribution Width 16.4 % (11.6-14.8); White Blood Cell Count 9.4 X10^3/uL (4.5-11.0)
[2019-03-25 06:44] LABS: BUN Creatinine Ratio 13.8 (6-22); Blood Urea Nitrogen 11 mg/dL (9-20); Calcium 7.9 mg/dL (8.4-10.2); Carbon Dioxide 29 mmol/L (22-32); Chloride 90 mmol/L (98-107); Estimated Glomerular Filt Rate > 60.0 mL/min (>60); Glucose 75 mg/dL (70-100); HEMOLYSIS < 15 (0-50); Potassium 3.7 mmol/L (3.4-5.1); Sodium 123 mmol/L (137-145)
[2019-03-25] MEDS: MORPHINE ER 30 MG TABLET PO ×2 (07:44→22:24)
[2019-03-25] MEDS: METHADONE 10 MG TABLET PO ×2 (07:44→22:24)
[2019-03-25] MEDS: TAMSULOSIN 0.4 MG CAPSULE PO (07:46)
[2019-03-25] MEDS: FUROSEMIDE 40 MG/4 ML VIAL IV (09:27)
[2019-03-25] MEDS: SPIRONOLACTONE 25 MG TABLET 12.5 MG PO (09:28)
[2019-03-25] MEDS: LACTULOSE 20 GM/30 ML SOLUTION 10 GM PO ×2 (09:28→22:23)
--- NOTE | 2019-03-25 11:23 | DIET.PN ---
Dietary Progress Note Assessment: 58y M admitted for leg edema and wound weeping s/p long course at [facility]. Pt was inpatient at one month ago for pneumothorax and severe PCM. Pt was 76kg 1 mo ago and today is 85kg, however, pt had stopped taking lasix so has some fluid overload. Pt dropped 36% weight unintentionally in 7mo r/t not having help with shopping and meal prep. Pt reports having flat sheet maker at this time and nutrition status improved c long hospital stay, though still chronic hyponatremia r/t cirrhosis. HT: 182.8cm WT: 85kg UBW: 120kg BMI: 25.4 Labs: hgb 9.9 L, Na 123 L, CRP 3.0 Nutrition Diagnosis: awaiting dry weight Interventions: 1. Daily weights please to assess dry weight and current possible PCM status 2. Kevan bid to support wounds Diet Order: low sodium, low fat EER: 2,000kcal, 100g PRO (1.3g/kg), 1.9L fluids Monitoring/Evaluations: monitor POs, weight, if POs <70% EERs consider ONS
--- NOTE | 2019-03-25 11:50 | PC.NURSE ---
Leg wounds appear less weepy than yesterday. Chucks pads changed. Received wound care instructions; awaiting wound care supplies. Waffle pad has been placed under patient and the pt has been encouraged to continue frequent repositioning. Diet changed from sodium restriction to regular diet. Blood pressure and oximetry monitoring Q4HR continues. Bed low and locked, call light within reach.
--- NOTE | 2019-03-25 14:58 | PT.IIE ---
Current Diagnoses Cellulitis of left lower limb (03/24/19) Medical History (Last Reviewed 03/24/19 @ 08:29 by Benito Muniz MD) Chronic hyponatremia (Acute) Cirrhosis (Acute) Congestive heart failure (Acute) Hypothyroid (Acute) Smoker (Acute) Venous stasis dermatitis of both lower extremities (Acute) Physical Therapy Inpatient Evaluation/Re-Eval M1 PT/OT-IP Prior Functional Status Start: 03/25/19 17:01 Freq: NEEDED Status: Active Protocol: Document 03/25/19 14:58 AB (Rec: 03/25/19 17:17 AB [id number]) Medical Review Prior Functional Status Medical History Reviewed Yes Communication able to make needs known Mobility and Gait pt stated that he is modified independent with bed mobility, transfers and ambualtion using FWW Activities of Daily Living and IADL's stated that his nephew assists him with bathing and dressing Social History Household Members family Living Arrangements Apartment/Condo Number of Floors (Floors) One Floor Number of Stairs To Enter/Railing? no steps to enter Home Environment Standard Height Toilet,Walk in Shower Home Equipment Front Wheel Walker,Raised Toilet Seat Without Armrests, Shower Seat with Backrest,Hand Held Shower,Lift Recliner, Grab Bars Near Toilet,Grab Bars In Shower Additional Social History Comment pt stated that he lives with his nephew and nephew's and they are his caregivers. pt sleeps on a lift chair M2 PT-IP Current Condition Start: 03/25/19 17:01 Freq: NEEDED Status: Active Protocol: Document 03/25/19 14:58 AB (Rec: 03/25/19 17:17 AB [id number]) Physical Therapy Current Condition Current Condition Evaluation Date 03/25/19 Treatment Diagnosis BLE venous stasis dermatitis; difficulty in walking Onset Date 03/24/2019 M3 PT-IP Subjective Start: 03/25/19 17:01 Freq: NEEDED Status: Active Protocol: Document 03/25/19 14:58 AB (Rec: 03/25/19 17:17 AB [id number]) Subjective Physical Therapy Visit Type Type Initial Evaluation Visit Start Time 14:58 Visit Stop Time 15:25 Total Visit Minutes 27 Number of ATMOSPHERIC PHYSICIST Visits 0 Physical Therapy Visit Comments Patient Comments pt agreeable to stand up but refused to ambulate; stated that he uses special shoes due to R heel ulcer and his nephew can bring his shoes and FWW tomorrow and pt just wants to do his ambulation tomorrow. Therapy Pain Assessment Pain When Pain Assessed At Rest Pain Present Pain Present Pain Reported Location Bilateral Leg Intensity 3 Scale Used Numeric (1 - 10) M4 PT-IP Mobility and Gait Start: 03/25/19 17:01 Freq: NEEDED Status: Active Protocol: Document 03/25/19 14:58 AB (Rec: 03/25/19 17:17 AB [id number]) PT-Bed Mobility Assessment Supine to Sit Supine to Sit Standby Assistance,Head of Bed Elevated Sit to Supine Sit to Supine Maximum Assistance,1 Person Assistance PT-Transfer Assessment Sit to and From Stand Sit to and from Stand Minimal Assistance,1 Person Assistance,Use of Upper Extremities Equipment Transfer Assistive Device Gait Belt,Front Wheeled Walker Orthotic/Prosthetic Devices or Brace: No Comments Mobility Comments pt completed supine to sit SBA with HOB elevated ~ 13 deg. pt was able to sit on EOB SBA. completed sit to stand min A and cues. pt was able to stand using FWW for support SBA to CGA. pt tolerated standing for ~ 10 min for hygiene care and waiting bed set up. pt does not want to sit up on the chair and just wants to go back in bed. completed sit to supine max A with LE elevation to bed. position pt in bed. call light and table placed within reach. Gait Assessment Comments Gait Comments pt refused; will attempte next tx session when shoes and FWW are available per pt's request PT-Balance Assessment Sitting Balance and Reactions Static Sitting Balance Ability Good Dynamic Sitting Balance Ability Good Standing Balance and Reactions Static Standing Balance Ability Fair Dynamic Standing Balance Ability Fair Device Used FWW M5 PT-IP Objective Assessments Start: 03/25/19 17:01 Freq: NEEDED Status: Active Protocol: Document 03/25/19 14:58 AB (Rec: 03/25/19 17:17 AB [id number]) Orientation Orientation/Cognition Level of Alertness Alert Orientation Name,Place,Situation Safety Awareness Decreased Safety Awareness Gross Range of Motion Lower Extremity ROM Assessment Within Functional Limits Strength Lower Extremity Strength Assessment Bilaterally Impaired Hip 3+/5 Knee 3+/5 Sensation Assessment Sensation Gross Sensation Right LE Impaired,Left LE Impaired Light Touch Impaired Proprioception (Position) Impaired Sensation Description Numbness,Tingling,Pain Comments Sensation Comments stated only ~ 50-70% sensation on BLE from the knee down to his feet Muscle Tone Muscle Tone WNL Yes M6 PT-IP Treatment Start: 03/25/19 17:01 Freq: NEEDED Status: Active Protocol: Document 03/25/19 14:58 AB (Rec: 03/25/19 17:17 AB [id number]) Physical Therapy Treatment Education Education Provided Safety M7 PT-IP Assessment and Plan Start: 03/25/19 17:01 Freq: NEEDED Status: Active Protocol: Document 03/25/19 14:58 AB (Rec: 03/25/19 17:17 AB [id number]) PT Summary Assessment and Plan Potential Rehabilitation Potential Fair Status of Condition at Evaluation Evolving Summary Impairments Pain,ROM,Strength,Balance, Coordination,Sensation,Tone, Cognition,Bed Mobility, Transfers,Gait,Activity Tolerance Assessment Summary pt requiring min A for sit to stand and SBA to CGA with standing using FWW. pt will have 24/7 assist at home. pt refused ambulation today and will need further assessment to determine safe d/c plan. will conduct caregiver training when appropriate. Goals Bed Mobility Goal Standby Assistance Transfer Goal Standby Assistance,Front Wheeled Walker Gait Goal Standby Assistance,Front Wheel Walker Gait Distance 100 Days to Meet Goals 5 Frequency of Treatment Frequency Of Treatment Once a Day Treatment Plan Physical Therapy Treatment Plan Bed Mobility Training,Transfer Training,Gait Training, Therapeutic Exercise,Balance Retraining,Post Op Education, Discharge Planning,Hot or Cold Pack,Neuromuscular Re-ed, Coordination Retraining,Manual Therapy Other Recommendations and Next Treatment ambulation: pt stated that his [employer] nephew will bring shoes and FWW by 1pm 03/26. Recommendations To Nursing Amount of Assist Needed 1 Person Assist Discharge Recommendations PT Discharge Recommendations Home with 24/7 Assist,Home Health Transportation Needs at Discharge Private Vehicle
--- NOTE | 2019-03-25 15:16 | P.PN_ITS ---
Subjective Subjective Date Patient Seen: 03/25/19 Time Patient Seen: 15:17 Interval history: Mr. Delvin Parkinson is a 58 year old male with past medical history significant for congestive heart failure of unknown type, alcoholic cirrhosis, hypothyroidism, chronic bilateral lower extremity venous stasis, chronic hyponatremia, chronic pain and chronic opiate use who presented to the ER with worsening leg edema and wound weeping. The patient has long history of venous stasis and on last admission was reported as actually doing better. The patient was subsequently transferred to [facility] related to pneumothorax and possible thoracic surgery when upon discharge on 03/15/2019 he was told to stop his spironolactone and Lasix and was told it may help his sodium level. He is seen for follow-up today. He was seen by wound care yesterday and they recommended anti pseudomonal coverage based on appearance. He was started on meropenem yesterday, his legs have slightly improved today with decreased redness but there is still some significant erythema. Exam Vital Signs (past 8 hours): - 03/25/19 07:35 03/25/19 07:50 03/25/19 08:09 Temperature 98.2 F Pulse Rate 83 Respiratory Rate 16 Blood Pressure 78/54 L Pulse Oximetry 94 94 94 03/25/19 11:35 03/25/19 11:43 03/25/19 11:45 Temperature 97.9 F 98.3 F Pulse Rate 86 86 Respiratory Rate 16 16 Blood Pressure 93/55 L 93/55 L Pulse Oximetry 98 98 98 Oxygen Delivery Method Room Air Oxygen Flow Rate 0 Narrative Exam Narrative: GENERAL APPEARANCE: Well-developed, chronically ill-appearing male, lying semi recumbent in bed in no acute distress SKIN: multiple bruises and ecchymoses, severe venous stasis changes of his lower extremity with weeping, scaly patches, with redness and warmth but slightly improved from previous documentation, no tenderness on palpation secondary to neuropathy HEENT: Normocephalic, pleural, sclera are anicteric, conjunctivae moist. EOMs intact without nystagmus, no rhinorrhea, oral pharynx appears pink and moist. NECK: Decreased range of motion, no thyromegaly no tenderness or masses on palpation CHEST: Kyphotic chest with scoliosis, leans to left, symmetrical movement, breathing nonlabored, no accessory muscle use. LUNGS: clear to auscultation bilaterally, no coarseness crackles or wheezing, no cough present CARDIOVASCULAR: regular rate and rhythm, no murmurs, gallops, rubs. Peripheral pulses not palpable due to 3+ bilateral edema ABDOMEN: Soft and nontender, no ascites appreciated, liver palpable right upper quadrant, active bowel tones MUSCULOSKELETAL: There was no tenderness or effusions noted. Muscle strength and tone were normal. EXTREMITIES: No cyanosis, clubbing or edema. NEUROLOGIC: Alert and oriented x 3. Normal affect. Strength is 5/5 upper extremities and 4/5 lower extremities Bilaterally, patient reports bilateral lower extremity neuropathy. PSYCH: Good eye contact, cooperative, stable affect and behavior Objective Labs Result Diagrams: 03/25/19 06:13 03/25/19 06:13 Labs: Laboratory Results - last 24 hr 03/25/19 03/25/19 06:13 06:13 WBC 9.4 RBC 3.32 L Hgb 9.9 L Hct 29.5 L MCV 89.0 MCH 29.9 MCHC 33.5 RDW 16.4 H Plt Count 302 Neut % (Auto) 70.7 Lymph % (Auto) 12.2 L [place] % (Auto) 10.3 Eos % (Auto) 6.2 H Baso % (Auto) 0.6 Neut # (Auto) 6600 Lymph # (Auto) 1100 [place] # (Auto) 1000 H Eos # (Auto) 600 H Baso # (Auto) 100 Sodium 123 L Potassium 3.7 Chloride 90 L Carbon Dioxide 29 BUN 11 Creatinine 0.80 Estimated GFR > 60.0 BUN/Creatinine Ratio 13.8 Glucose 75 Calcium 7.9 L Assessment & Plan Assessment & Plan narrative: Mr. Delvin Parkinson is a 58 year old male with past medical history significant for congestive heart failure of unknown type, alcoholic cirrhosis, hypothyroidism, chronic bilateral lower extremity venous stasis, chronic hyponatremia, chronic pain and chronic opiate use who presented to the ER with worsening leg edema and wound weeping who was admitted for cellulitis. 1. Acute cellulitis bilateral lower extremities, present on admission, active Patient with worsening redness and edema is bilateral lower extremities with increased pain and warmth on admission, this is slightly improved after IV antibiotics. Patient will continue on a carbapenem for anti pseudomonal cover age at this time. Once redness improves and he is further diuresed he can discharge with outpatient follow-up. Patient will follow in Wound Care. 2. Chronic venous stasis bilateral lower extremities, present on admission, active Patient had previously had improving venous stasis at time of last admission [facility]. Patient subsequently treated at [facility] and told to discontinue Lasix and spironolactone. Ordered furosemide 40 mg x 1. Continue patient's home regimen of furosemide 80 mg daily and spironolactone 25 mg daily. Wound care follow-up as an outpatient. 3. Congestive heart failure, unknown type, chronic, present on admission, active History of congestive heart failure, no echocardiogram has been obtained, there is no need for current echocardiogram as an inpatient. Patient with worsening venous stasis however no pulmonary complications, pulmonary edema and has been stable. Will reinitiate the patient's home regimen of Lasix and spironolactone. 4. Alcoholic cirrhosis, chronic, stable. Patient is cognitively alert conversant and interactive. Continue patient's home regimen of lactulose 10 g 3 times daily. 5. Chronic hyponatremia, present on admission, stable Sodium on admission is 126, baseline sodium is 123-124. No perceived benefit from reduction or elimination of diuretics. Diuretic therapy is re-initiated. Will monitor chemistries Consider fluid restriction, however that did not help him improve much either during his last admission. 6. Acquired Hypothyroidism, chronic, stable. continue patient's home regimen of levothyroxine 137 mcg daily. 7. Opiate dependence, present on admission, stable. Will continue the patient's home regimen of methadone 10 mg every 12 hours. The patient is morphine dose has been increased to 30 mg twice daily Dispo: Remains inpatient, patient can discharge once cellulitis has improved. Plan for follow-up in wound care after discharge. Quality VTE Deep Vein Thrombosis/Pulmonary Embolism Present on Admission: No
--- NOTE | 2019-03-25 17:00 | OT.IP.TRT ---
Current Diagnoses Cellulitis of left lower limb (03/24/19) Occupational Therapy Administrative Note M3 OT- IP Subjective and Pain Start: 03/25/19 16:59 Freq: Status: Active Protocol: Document 03/25/19 16:59 PJM (Rec: 03/25/19 17:00 PJM [id number]) OT- Subjective Occupational Therapy Visit Type Type Administrative Note Visit Start Time 16:30 Notes OT referral received. Will initiate evaluation in AM.
--- NOTE | 2019-03-25 21:28 | PC.NURSE ---
Patient able to turn himself in bed. Q2 turn. Both legs elevated. Both legs weepy, less than yesterday. Swelling in legs appears less than yesterday. Wound dressing clean, intact, and no signs of weeping on the outside. Blue chucks under dressings, no drainage seen. Voiding without difficulty. No bm today; patient states they have a bm every 3 days. Bed low and locked. Bed alarm on. Call light within reach.
[2019-03-25] MEDS: carvediloL 6.25 MG TABLET PO (22:23)
--- NOTE | 2019-03-25 22:45 | PC.NURSE ---
A&OX4. BP has been 90> systolic. denied any dizziness. encourage pt to turn frequently. BLE elevated with pillows. dressing intact. call light in reach. bed alarm active.
[2019-03-26] VITALS (8 sets, daily range): BP systolic 86–92; BP diastolic 52–64; PULSE 81–96; RESP 16–20; TEMP 36.6–37.2; O2SAT 94–98
[2019-03-26] MEDS: MEROPENEM 1 GM/50 ML PIGGYBACK IV ×3 (01:24→18:07)
[2019-03-26] MEDS: MIDODRINE HCL 5 MG TABLET 10 MG PO ×3 (06:24→18:07)
[2019-03-26] MEDS: LEVOTHYROXINE 137 MCG TABLET PO (06:24)
[2019-03-26 07:21] LABS: Add Manual Diff / Slide Review NO; Basophils Absolute Auto 100 /uL (0-100); Basophils Percent Auto 0.7 % (0-2); Blood Urea Nitrogen 16 mg/dL (9-20); Carbon Dioxide 29 mmol/L (22-32); Chloride 89 mmol/L (98-107); Eosinophils Absolute Auto 700 /uL (0-450); Eosinophils Percent Auto 8.8 % (2-4); Estimated Glomerular Filt Rate > 60.0 mL/min (>60); Glucose 74 mg/dL (70-100); HEMOLYSIS < 15 (0-50); Hematocrit 29.5 % (41-53); Hemoglobin 9.8 g/dL (13.5-17.5); Lymphocytes Absolute Auto 1200 /uL (1100-4500); Lymphocytes Percent Auto 14.4 % (25-40); Mean Corpuscular HGB Conc 33.3 % (30-36); Mean Corpuscular Hemoglobin 29.6 PG (26-34); Mean Corpuscular Volume 88.8 fL (80-100); Monocytes Absolute Auto 800 /uL (0-900); Monocytes Percent Auto 9.7 % (3-14); Neutrophils Absolute Auto 5500 /uL (1500-7000); Neutrophils Percent Auto 66.4 % (50-75); Platelet Count 281 X10^3/uL (150-400); Potassium 3.8 mmol/L (3.4-5.1); Red Blood Cell Count 3.32 X10^6/uL (4.5-5.9); Red Cell Distribution Width 16.7 % (11.6-14.8); Sodium 125 mmol/L (137-145); White Blood Cell Count 8.3 X10^3/uL (4.5-11.0)
[2019-03-26] MEDS: LACTULOSE 20 GM/30 ML SOLUTION 10 GM PO ×2 (08:51→21:27)
[2019-03-26] MEDS: SPIRONOLACTONE 25 MG TABLET 12.5 MG PO (08:52)
[2019-03-26] MEDS: MORPHINE ER 30 MG TABLET PO ×2 (08:54→21:29)
[2019-03-26] MEDS: METHADONE 10 MG TABLET PO ×2 (08:54→21:30)
[2019-03-26] MEDS: TAMSULOSIN 0.4 MG CAPSULE PO (08:54)
[2019-03-26] MEDS: FUROSEMIDE 40 MG/4 ML VIAL IV (08:55)
--- NOTE | 2019-03-26 10:49 | CM.DPC ---
Addendum entered by Naty Anglin LPN 03/26/19 15:12: Call back from Rickey/[facility]: snf team consensus is pt is not a good fit for our facility and we are unable to accept him with a possible need for terminal makeup operator care. Rachel/[facility] called. No pvt room but may be able to make pt feel more comfortable about this with an onsite visit. Bitumen Plant Operator PT Ap and DNS Katherine will be here tomorrow to meet with pt for assessment and discussion. Addendum entered by Naty Anglin LPN 03/26/19 13:57: Wound care physician did consult with pt in the hospital, as confirmed in Rounds this morning. No dictation available thus far. Left a message for Wound managed care specialist Margie requesting same as need for SAUL as well as the snf. Addendum entered by Naty Anglin LPN 03/26/19 13:31: Referrals: discussed with Carlene/Rachel is reviewing but no pvt room. [facility] Karen says no pvt and no possibility of staying on terminal makeup operator afterwards if needed. [facility]: Rickey says pvt is available and she understands pt may need correction plan, at least until alternate living situation is found (unless he can return home alone with [facility] care.). [facility] and await determination of the team. Will update pt as more is known. Dr. Glaser is updated, agrees with plan. Says he will contact Que and give him an update on his uncle's status as he is a crucial part of the dc plan and pt has identified him as his advocate. SAUL showcase maker: received a call from Pam who confirms she did the in home assessment and will follow up with Que for more specifics. She requests records be sent to her. Will fax: [phone] She requests that she be notified when an accepting snf is found for pt and so that she can follow up. Her cell: [phone] Addendum entered by Naty Anglin LPN 03/26/19 11:57: After some research and discussion with pt obtained Hua's phone number: [phone]. Then had lengthy discussion by phone with Hua. He reports that since pt came home from [facility] 10 days ago caring for him has been a nightmare for us. He states the had recommended snf stay before home but pt refused as he only wanted a private room. Pt has never had a snf stay and he also did not go home with [facility]. Hua and his moved here from [place] with their 2 and 4 year old children to help his uncle out. He reports they found him in a terrible living situation but we finally were able to get the garbage out of his home and clean everything. We were able to help him and he did pretty well for awhile. It all feel apart after he got back from the . Hua and his fear now that they are putting their children at risk in remaining in this environment and are making plans to move back to [place]. Hua has been clear with his uncle re this, he says, but he is in denial. He and his Yolanda have been assisting pt with his Medicaid/Saul application and state Saul avionics installer Pam : [phone] has been out to the house for the assessment. He and Pam will continue to work on this and I love my uncle and want to see him cared for properly. SNF option has now been discussed with Hua and with pt. Pt is agreeable as long as it's a pvt room. He is cautioned that this may not be possible. SNF choice list: discussed: Pvt room being pt's only concern. P: follow now on getting a snf that may be able to transition pt to correction care setting as indicated. Will update Dr. Glaser as soon as he is available. Original Note: DCP: continued: case received and discussed in Team Rounds. Dr. Glaser stated that pt would likely go home today on oral antibiotics. Wound managed care specialist Margie Trujillo stated that pt was all set up for followup at the Wound care clinic. PT and OT were ordered. OT Summer just saw pt this morning. She reports pt is not ambulating yet as his nephew has not brought in his specialized shoe. EMR reviewed: It is noted that pt is here under Medicare and INPT admission status in place 03/24>. Caregiver nephew is Hua Rush: no contact # listed and pt reports today that this nephew may be out of town. Will follow up on all this. No d/c order is in place at this time.
--- NOTE | 2019-03-26 10:52 | OT.IP.EVAL ---
Current Diagnoses Cellulitis of left lower limb (03/24/19) Past Medical History (Last Reviewed 03/24/19 @ 08:29 by Benito Muniz MD) Chronic hyponatremia (Acute) Cirrhosis (Acute) Congestive heart failure (Acute) Hypothyroid (Acute) Smoker (Acute) Venous stasis dermatitis of both lower extremities (Acute) Occupational Therapy Inpatient Evaluation/Re-Eval M1 PT/OT-IP Prior Functional Status Start: 03/25/19 17:01 Freq: NEEDED Status: Active Protocol: Document 03/26/19 10:52 PJM (Rec: 03/26/19 15:54 PJM [id number]) Medical Review Prior Functional Status Medical History Reviewed Yes Diet/Fluid Consistency Regular Communication able to make needs known Mobility and Gait Per discussion with patient case coordinator, pt has not been giving staff accurate information re: prior level of function and grossly underestimates the amount of assistance he was receiving at home. Per nephewHua, pt has been very reluctant to ambulate at home and has been changing soiled briefs in his chair instead of walking to bathroom. Pt needs close SBA to CGA for ambulation with FWW with L heel knuckle strap sewer shoe for L heel wound. Activities of Daily Living and IADL's Per nephew, pt needs assist with lower body dressing, bathing, toileting and extensive assist with wound care for weeping open areas on BLE's. Nephew and his have been providing 24 hr assist to pt for past several months. Prior Functional Level (Other details) See patient case coordinator note of 03/26/19. Nephew and have decided they can no longer care for pt in his home along with their 2 small children. They plan to return to [place] in 2 weeks. Social History Household Members family Living Arrangements Apartment/Condo Number of Floors (Floors) One Floor Number of Stairs To Enter/Railing? no steps to enter Home Environment Standard Height Toilet,Walk in Shower Home Equipment Front Wheel Walker,Raised Toilet Seat Without Armrests, Shower Seat with Backrest,Hand Held Shower,Long Handled Sponge,Exhaust Emissions Inspector,Lift Recliner, Grab Bars Near Toilet,Grab Bars In Shower Additional Social History Comment Pt sleeps on a lift chair, uses urinal at night. Pt had recent [facility] admission 02/13-02/18/19 then was transferred to Hospital for pneumothorax. Pt refused SNF at d/c from and came home on 03/15/19 with no home health services. M2 OT-IP Current Condition Start: 03/25/19 16:59 Freq: Status: Active Protocol: Document 03/26/19 10:52 PJM (Rec: 03/26/19 15:54 PJM [id number]) Occupational Therapy Current Condition Current Condition Evaluation Date 03/26/19 Treatment Diagnosis decr'd self care, mobility, IADLS; DX: acute BLE cellulitis, ETOH cirrhosis Diagnosis Onset Date 03/24/19 Post Operative Precautions Other Precautions BLE wounds, L heel wound with off front end loader driver shoe for ambulation M3 OT- IP Subjective and Pain Start: 03/25/19 16:59 Freq: Status: Active Protocol: Document 03/26/19 10:52 PJM (Rec: 03/26/19 15:54 PJM [id number]) OT- Subjective Occupational Therapy Visit Type Type Initial Evaluation Visit Start Time 10:39 Visit Stop Time 10:52 Total Visit Minutes 13 Occupational Therapy Visit Comments Patient Comments I can do all that stuff at home (self care). My nephew or his help me if I need it. Patient/Caregiver Goals to go home OT Pain Assessment Pain When Pain Assessed After Treatment Pain Present Pain Present Pain Reported Location Bilateral Leg Intensity 3 Scale Used Numeric (1 - 10) Description Aching,Chronic Management Techniques Distraction,Timing of Activity with Medications M4 OT- IP ADL's Start: 03/25/19 16:59 Freq: Status: Active Protocol: Document 03/26/19 10:52 PJM (Rec: 03/26/19 15:54 PJM [id number]) OT OLO-Tynw-Kxvsgkd General Evaluation Self-Feeding Ability Independent OT ADL-Grooming General Evaluation Grooming Ability Standby Assistance Areas Needing Assistance Face Washing Comments OT Grooming Comments in bed OT ADL-Oral Care Comments Oral Care Comments did not occur this session OT ADL-Dressing General Eval Lower Body Dressing Ability Total Assistance Areas Needing Assistance Underpants/Brief,Pants/Shorts, Socks Comments OT Dressing Comments difficulty with LB dressing due to BLE wounds/bandages OT ADL-Toileting General Evaluation Toileting Ability Standby Assistance Devices Toileting Assistive Devices Urinal OT ADL-Bathing Bathing Type Bathing Type Bed Bath General Evaluation Bathing Ability Maximal Assistance M5 OT- IP IADL's Start: 03/25/19 16:59 Freq: Status: Active Protocol: Document 03/26/19 10:52 PJM (Rec: 03/26/19 15:54 PJM [id number]) OT-Instrumental Activities of Daily Living Deficits IADL Deficits Identified Deficits Home Safety Awareness Awareness of Need for Assistance at Home Decreased Awareness Home Safety Comments pt's nephew and his have been doing all IADLS at home Medication Management Medication Management Caregiver Provides Supervision Money Management Money Management Caregiver Provides Supervision Meal Preparation Meal Preparation Caregiver Provides Assist Field Service Tech Field Service Tech Caregiver Provides Assist Driving Driving Caregiver Provides Assist M6 OT- IP Functional Cognition Start: 03/25/19 16:59 Freq: Status: Active Protocol: Document 03/26/19 10:52 PJM (Rec: 03/26/19 15:54 PJM [id number]) Cognitive Factors Limiting Selfcare Function Cognitive Ability Level of Alertness Alert Patient Orientation Name,Age,Birthday,Month,Date, Year,Day of Week,Place, Situation Attention Span Ability Capable of Focused Attention Ability to Follow Commands Able to Follow One Step Commands Safety Awareness Underestimates Need for Assistance Cognitive Comments Cognitive Assessment Comments Pt not giving accurate information re: prior level of function as confirmed by his nephew who has been living with pt for past several months. Pt has decreased insight re: his current care needs and grossly underestimates the amount of assistance he has been receiving at home. OT- Vision and Hearing OT- Hearing Assessment OT- Hearing Assessment WFL OT- Vision Assessment Visual Acuity Glasses For Reading M7 OT- IP Mobility and Balance Start: 03/25/19 16:59 Freq: Status: Active Protocol: Document 03/26/19 10:52 PJM (Rec: 03/26/19 15:54 PJ [id number]) OT-Transfer Assessment Comments Mobility Comments Pt declined OOB this session OT- Gait Assessment Comments Gait Ability Comments Pt declines to ambulate until his nephew brings modified shoe for L heel wound. OT- Balance Assessment Comments Other Balance Tests/Deviations/Treatment see P.T. notes : M8 OT- IP Objective Assessments Start: 03/25/19 16:59 Freq: Status: Active Protocol: Document 03/26/19 10:52 PJM (Rec: 03/26/19 15:54 PJ [id number]) OT Gross Range of Motion Upper Extremity Range of Motion Assessment Within Functional Limits OT Strength Upper Extremity Strength Assessment Within Functional Limits OT- Coordination Assessment Comments Coordination Comments BUE WFL OT-Muscle Tone Assessment Muscle Tone WNL Yes OT Sensation Assessment Comments Summary Comments Pt denies deficits in BUE's, but states he is numb from the knees down in BLE's M9 OT- IP Assessment and Plan Start: 03/25/19 16:59 Freq: Status: Active Protocol: Document 03/26/19 10:52 PJM (Rec: 03/26/19 15:54 PJM [id number]) OT Summary Assessment and Plan Potential Rehabilitation Potential Fair Analytic Complexity at Evaluation Moderate Summary OT Impairments Pain,Strength,Balance, Functional Mobility,Dressing, Toileting,Bathing,Toilet Transfers,Shower Transfers, Activity Tolerance Assessment Summary Moderate complexity OT evaluation due to extra time needed for chart review of previous admission and complex social situation affecting discharge planning. Pt is a 58 yr old male home only 9 days after hospital stay from 02/13- [facility]. Pt now has dx of acute BLE cellulitis. Pt failing to care for himself at home and nephew and his can no longer meet his care needs and must return to their home in [place] after assisting pt for past several months. Pt lived alone prior to their arrival. Pt has performance deficits in insight, judgement and safety awareness, dressing, bathing, toileting, activity tolerance and all functional mobility/ transfers and is unable to manage wound care for BLE's. Recommend SNF at d/c for further wound care and rehab services with likely need for shelter care unless pt gains significant insight and makes significant progress in mobility and self care needs. Goals Grooming Goal Standby Assistance Dressing Goal Moderate Assistance Toileting Goal Minimal Assistance Bathing Goal Moderate Assistance,Grab Bars, Hand Held Shower Sprayer Toilet Transfer Goal Contact Guard Assistance,ADA High Toilet,Grab Bars Shower Transfer Goal Minimal Assistance,Shower Chair,Grab Bars Patient/Caregiver Education Goal Demonstrate Energy Conservation and Pacing Days to Meet Goals 7 Frequency of Treatment Frequency Of Treatment Once a Day Treatment Plan OT Treatment Plan ADL Training,Functional Mobility,Patient/Family Education,Discharge Planning Discharge Recommendations OT Discharge Recommendations SNF Rehab Transportation Needs at Discharge Wheelchair/Cabulance
--- NOTE | 2019-03-26 11:56 | PT.IPTN ---
Current Diagnoses Cellulitis of left lower limb (03/24/19) Physical Therapy Treatment Note M2 PT-IP Current Condition Start: 03/25/19 17:01 Freq: NEEDED Status: Active Protocol: Document 03/25/19 14:58 AB (Rec: 03/25/19 17:17 AB [id number]) Physical Therapy Current Condition Current Condition Evaluation Date 03/25/19 Treatment Diagnosis BLE venous stasis dermatitis; difficulty in walking Onset Date 03/24/2019 M3 PT-IP Subjective Start: 03/25/19 17:01 Freq: NEEDED Status: Active Protocol: Document 03/26/19 11:41 SP (Rec: 03/26/19 13:38 SP [id number]) Subjective Physical Therapy Visit Type Type Treatment Note Visit Start Time 11:41 Visit Stop Time 11:56 Total Visit Minutes [address]ISTRATE Visits 1 Physical Therapy Visit Comments Patient Comments Pt agreeable to PT but stated his nephew didn't bring his shoes so doesn't want to walk and put alot of pressure through the L heel. Pt stated unsure when nephew will bring his shoes at this point. Therapy Pain Assessment Pain Present Pain Present Denied Pain M4 PT-IP Mobility and Gait Start: 03/25/19 17:01 Freq: NEEDED Status: Active Protocol: Document 03/26/19 11:41 SP (Rec: 03/26/19 13:38 SP [id number]) PT-Bed Mobility Assessment Supine to Sit Supine to Sit Standby Assistance,Head of Bed Elevated Sit to Supine Sit to Supine Minimal Assistance,1 Person Assistance Scooting Scooting to Edge of Bed Standby Assistance Scooting Up and Down in Bed Standby Assistance PT-Transfer Assessment Sit to and From Stand Sit to and from Stand Contact Guard Assistance,1 Person Assistance,Use of Upper Extremities Equipment Transfer Assistive Device Gait Belt,Front Wheeled Walker Orthotic/Prosthetic Devices or Brace: No Comments Mobility Comments Pt was laying in bed when arrived. Supine to sitting and scoot to EOB SBA HOB elevated 30 deg. sit to stand CGA usign FWW, used BUE to support himself to standing using FWW . [address] MAGISTRATE suggested WB through forefoot LLE to decrease heel WB. Pt was able and willing to perform standing exercises hip ff and abd using FWW for support CGA, stable and able to forward and back step x 2 ft with LLE heel lift. Pt requested to get back to bed and not the chair due to it being to low and hard to get out of. Sitting to supine Min A for RLE into bed 10% and sBA during self repositioning to center in bed. Pt required support for pillow placement under LLE with heel floating per patient stated physician instructions. Gait Assessment Gait Gait Assistance Required: Contact Guard Assist,1 Person Assist Distance (Feet) 2 Able to Maintain Weight Bearing Status Yes During Gait Assistive Devices Assistive Device Gait Belt,Front Wheeled Walker Orthotic/Prosthetic Devices or Brace: No Gait Deviations General Gait Pattern Antalgic,Decreased Stride Length,Decreased Feet Clearance,Flexed Trunk,Wide Based Gait Factors Limiting Gait Function Factors Limiting Gait Function Decreased Activity Tolerance, Decreased Sensation,Decreased Strength,Pain,Poor Balance Comments Gait Comments Pt willing to forward/backward stepping usign FWW and tried best can WB through forefoot LLE to decrease WB pressure on L heel, CGA. PT-Balance Assessment Sitting Balance and Reactions Static Sitting Balance Ability Good Dynamic Sitting Balance Ability Good Standing Balance and Reactions Static Standing Balance Ability Good Dynamic Standing Balance Ability Fair Device Used FWW M5 PT-IP Objective Assessments Start: 03/25/19 17:01 Freq: NEEDED Status: Active Protocol: Document 03/25/19 14:58 AB (Rec: 03/25/19 17:17 AB [id number]) Orientation Orientation/Cognition Level of Alertness Alert Orientation Name,Place,Situation Safety Awareness Decreased Safety Awareness Gross Range of Motion Lower Extremity ROM Assessment Within Functional Limits Strength Lower Extremity Strength Assessment Bilaterally Impaired Hip 3+/5 Knee 3+/5 Sensation Assessment Sensation Gross Sensation Right LE Impaired,Left LE Impaired Light Touch Impaired Proprioception (Position) Impaired Sensation Description Numbness,Tingling,Pain Comments Sensation Comments stated only ~ 50-70% sensation on BLE from the knee down to his feet Muscle Tone Muscle Tone WNL Yes M6 PT-IP Treatment Start: 03/25/19 17:01 Freq: NEEDED Status: Active Protocol: Document 03/26/19 11:41 SP (Rec: 03/26/19 13:38 SP [id number]) Physical Therapy Treatment Exercises Exercises Gluteal Sets,Quad Sets,Heel Slides,Straight Leg Raises, Supine Hip Abduction,Seated Knee Flexion/Extension Education Education Provided Safety M7 PT-IP Assessment and Plan Start: 03/25/19 17:01 Freq: NEEDED Status: Active Protocol: Document 03/26/19 11:41 SP (Rec: 03/26/19 13:38 SP [id number]) PT Summary Assessment and Plan Potential Rehabilitation Potential Fair Status of Condition at Evaluation Evolving Summary Impairments Pain,ROM,Strength,Balance, Coordination,Sensation,Tone, Cognition,Bed Mobility, Transfers,Gait,Activity Tolerance Assessment Summary pt requiring CGA for sit to stand and SBA with standing using FWW. pt will have 24/7 assist at home. pt refused ambulation today and will need further assessment to determine safe d/c plan is home. will conduct caregiver training when appropriate. Goals Bed Mobility Goal Standby Assistance Transfer Goal Standby Assistance,Front Wheeled Walker Gait Goal Standby Assistance,Front Wheel Walker Gait Distance 100 Days to Meet Goals 5 Frequency of Treatment Frequency Of Treatment Once a Day Treatment Plan Physical Therapy Treatment Plan Bed Mobility Training,Transfer Training,Gait Training, Therapeutic Exercise,Balance Retraining,Post Op Education, Discharge Planning,Hot or Cold Pack,Neuromuscular Re-ed, Coordination Retraining,Manual Therapy Other Recommendations and Next Treatment ambulation: pt stated that his [employer] nephew will bring shoes and FWW by 1pm 03/26, no shoes at am tx and patient unsure when shoe will come at this time. Recommendations To Nursing Amount of Assist Needed 2 Person Assist Discharge Recommendations PT Discharge Recommendations Home with 24/7 Assist,Home Health,SNF Rehab Transportation Needs at Discharge Private Vehicle
--- NOTE | 2019-03-26 20:26 | P.PN_ITS ---
Subjective Subjective Date Patient Seen: 03/26/19 Time Patient Seen: 20:26 Interval history: Mr. Delvin Parkinson is a 58 year old male with past medical history significant for congestive heart failure of unknown type, alcoholic cirrhosis, hypothyroidism, chronic bilateral lower extremity venous stasis, chronic hyponatremia, chronic pain and chronic opiate use who presented to the ER with worsening leg edema and wound weeping. The patient has improved lower extremity cellulitis. He remains on meropenem at this time. He denies complaints today including fever, chills. Currently he is being evaluated for SNF placement given care concerns from family. Exam Vital Signs (past 8 hours): - 03/26/19 15:16 03/26/19 20:02 Temperature 98.2 F 98.4 F Pulse Rate 96 H 95 H Respiratory Rate 18 20 Blood Pressure 90/64 87/52 L Pulse Oximetry 96 95 Oxygen Delivery Method Room Air Oxygen Flow Rate 0 Narrative Exam Narrative: GENERAL APPEARANCE: Well-developed, chronically ill-appearing male, lying semi recumbent in bed in no acute distress SKIN: multiple bruises and ecchymoses, severe venous stasis changes of his lower extremity with weeping, scaly patches, with redness and warmth but slightly improved from previous documentation, no tenderness on palpation secondary to neuropathy HEENT: Normocephalic, pleural, sclera are anicteric, conjunctivae moist. EOMs intact without nystagmus, no rhinorrhea, oral pharynx appears pink and moist. NECK: Decreased range of motion, no thyromegaly no tenderness or masses on palpation CHEST: Kyphotic chest with scoliosis, leans to left, symmetrical movement, breathing nonlabored, no accessory muscle use. LUNGS: clear to auscultation bilaterally, no coarseness crackles or wheezing, no cough present CARDIOVASCULAR: regular rate and rhythm, no murmurs, gallops, rubs. Peripheral pulses not palpable due to 3+ bilateral edema ABDOMEN: Soft and nontender, no ascites appreciated, liver palpable right upper quadrant, active bowel tones MUSCULOSKELETAL: There was no tenderness or effusions noted. Muscle strength and tone were normal. EXTREMITIES: No cyanosis, clubbing. There is bilateral LE edema. NEUROLOGIC: Alert and oriented x 3. Normal affect. Strength is 5/5 upper extremities and 4/5 lower extremities Bilaterally, patient reports bilateral lower extremity neuropathy. PSYCH: Good eye contact, cooperative, stable affect and behavior Objective Labs Result Diagrams: 03/26/19 06:35 03/26/19 06:35 Labs: Laboratory Results - last 24 hr 03/26/19 03/26/19 06:35 06:35 WBC 8.3 RBC 3.32 L Hgb 9.8 L Hct 29.5 L MCV 88.8 MCH 29.6 MCHC 33.3 RDW 16.7 H Plt Count 281 Neut % (Auto) 66.4 Lymph % (Auto) 14.4 L [place] % (Auto) 9.7 Eos % (Auto) 8.8 H Baso % (Auto) 0.7 Neut # (Auto) 5500 Lymph # (Auto) 1200 [place] # (Auto) 800 Eos # (Auto) 700 H Baso # (Auto) 100 Sodium 125 L Potassium 3.8 Chloride 89 L Carbon Dioxide 29 BUN 16 Creatinine 0.80 Estimated GFR > 60.0 BUN/Creatinine Ratio 20.0 Glucose 74 Calcium 8.0 L Assessment & Plan Assessment & Plan narrative: Mr. Delvin Parkinson is a 58 year old male with past medical history significant for congestive heart failure of unknown type, alcoholic cirrhosis, hypothyroidism, chronic bilateral lower extremity venous stasis, chronic hyponatremia, chronic pain and chronic opiate use who presented to the ER with worsening leg edema and wound weeping who was admitted for cellulitis. 1. Acute cellulitis bilateral lower extremities, present on admission, active Patient with worsening redness and edema is bilateral lower extremities with increased pain and warmth on admission, this is slightly improved after IV antibiotics. Patient will continue on a carbapenem for anti pseudomonal co verage at this time. Once redness improves and he is further diuresed he can discharge with outpatient follow-up. Patient will follow in Wound Care. - currently evaluating for SNF placement. 2. Chronic venous stasis bilateral lower extremities, present on admission, active Patient had previously had improving venous stasis at time of last admission [facility]. Patient subsequently treated at [facility] and told to discontinue Lasix and spironolactone. Continue patient's home regimen of furosemide 80 mg daily and spironolactone 25 mg daily. Wound care follow-up as an outpatient. 3. Congestive heart failure, unknown type, chronic, present on admission, active History of congestive heart failure, no echocardiogram has been obtained, there is no need for current echocardiogram as an inpatient. Patient with worsening venous stasis however no pulmonary complications, pulmonary edema and has been stable. Will reinitiate the patient's home regimen of Lasix and spironolactone. 4. Alcoholic cirrhosis, chronic, stable. Patient is cognitively alert conversant and interactive. Continue patient's home regimen of lactulose 10 g 3 times daily. 5. Chronic hyponatremia, present on admission, stable Sodium on admission is 126, baseline sodium is 123-124. No perceived benefit from reduction or elimination of diuretics. Diuretic therapy is re-initiated. Will monitor chemistries Consider fluid restriction, however that did not help him improve much either during his last admission. 6. Acquired Hypothyroidism, chronic, stable. continue patient's home regimen of levothyroxine 137 mcg daily. 7. Opiate dependence, present on admission, stable. Will continue the patient's home regimen of methadone 10 mg every 12 hours. The patient is morphine dose has been increased to 30 mg twice daily Dispo: Remains inpatient, patient can discharge once cellulitis has improved. Plan for SNF placement. Plan for follow-up in wound care after discharge. Quality VTE Deep Vein Thrombosis/Pulmonary Embolism Present on Admission: No
--- NOTE | 2019-03-26 22:18 | PC.NURSE ---
Skin Assessment Scattered, generalized bruising to chest and upper extremities. left elbow: Thick scab in place. Part of it tore off, bled. Alevyn applied. chest: Alevyn in place, lifted to observe. Skin is epithelialized. low back, buttocks: Purple, blanches slowly. Patient on waffle cushion, encouraged to reposition often. Open sheared spot on right buttock; Duoderm placed. pannus: Three spots of excoriation in skin fold. Barrier cream applied. bilateral lower legs: Brown hemosiderin staining. Blue absorbent dressing with tubifast intact. bilateral feet: Brown hemosiderin staining. Scaly thick skin, peeling off. Thick green fungal growth on toes. left heel: Alevyn in place. Lifted to observe; wound bed light pink, distinct edges, roughly dime-sized.
[2019-03-27] VITALS (12 sets, daily range): BP systolic 91–104; BP diastolic 55–70; PULSE 91–98; RESP 16–20; TEMP 36.7–37.6; O2SAT 93–98
[2019-03-27] MEDS: MEROPENEM 1 GM/50 ML PIGGYBACK IV ×2 (01:09→10:10)
[2019-03-27] MEDS: LEVOTHYROXINE 137 MCG TABLET PO (06:05)
[2019-03-27] MEDS: MIDODRINE HCL 5 MG TABLET 10 MG PO ×3 (06:05→18:36)
[2019-03-27 06:40] LABS: Hematocrit 28.7 % (41-53); Hemoglobin 9.8 g/dL (13.5-17.5); Mean Corpuscular HGB Conc 34.1 % (30-36); Mean Corpuscular Hemoglobin 30.1 PG (26-34); Mean Corpuscular Volume 88.1 fL (80-100); Platelet Count 265 X10^3/uL (150-400); Red Blood Cell Count 3.26 X10^6/uL (4.5-5.9); Red Cell Distribution Width 16.1 % (11.6-14.8); White Blood Cell Count 7.6 X10^3/uL (4.5-11.0)
[2019-03-27 06:41] LABS: BUN Creatinine Ratio 28.6 (6-22); Blood Urea Nitrogen 20 mg/dL (9-20); Carbon Dioxide 33 mmol/L (22-32); Chloride 89 mmol/L (98-107); Estimated Glomerular Filt Rate > 60.0 mL/min (>60); Glucose 70 mg/dL (70-100); HEMOLYSIS < 15 (0-50); Potassium 3.4 mmol/L (3.4-5.1); Sodium 125 mmol/L (137-145)
[2019-03-27 06:44] LABS: Add Manual Diff / Slide Review YES
[2019-03-27 07:32] LABS: Anisocytosis 2+; Neutrophils Absolute Manual 5624 /uL (3000-5900); Total Cells Counted 100
[2019-03-27 07:33] LABS: Poikilocytosis 1+
[2019-03-27 07:34] LABS: Hypochromasia 2+
--- NOTE | 2019-03-27 09:41 | PT.IPTN ---
Current Diagnoses Cellulitis of left lower limb (03/24/19) Physical Therapy Treatment Note M2 PT-IP Current Condition Start: 03/25/19 17:01 Freq: NEEDED Status: Active Protocol: Document 03/25/19 14:58 AB (Rec: 03/25/19 17:17 AB [id number]) Physical Therapy Current Condition Current Condition Evaluation Date 03/25/19 Treatment Diagnosis BLE venous stasis dermatitis; difficulty in walking Onset Date 03/24/2019 M3 PT-IP Subjective Start: 03/25/19 17:01 Freq: NEEDED Status: Active Protocol: Document 03/27/19 09:09 LJ (Rec: 03/27/19 09:41 LJ [id number]) Subjective Physical Therapy Visit Type Type Treatment Note Visit Start Time 09:09 Visit Stop Time 09:30 Total Visit Minutes 21 Physical Therapy Visit Comments Patient Comments Pt in bed getting brief change . Willing to ambulate in hallway with personal shoes. M4 PT-IP Mobility and Gait Start: 03/25/19 17:01 Freq: NEEDED Status: Active Protocol: Document 03/27/19 09:09 LJ (Rec: 03/27/19 09:41 LJ [id number]) PT-Bed Mobility Assessment Supine to Sit Supine to Sit Standby Assistance,Head of Bed Elevated Sit to Supine Sit to Supine Minimal Assistance,1 Person Assistance Scooting Scooting to Edge of Bed Standby Assistance Scooting Up and Down in Bed Standby Assistance PT-Transfer Assessment Sit to and From Stand Sit to and from Stand Contact Guard Assistance,1 Person Assistance,Use of Upper Extremities Equipment Transfer Assistive Device Gait Belt,Front Wheeled Walker Orthotic/Prosthetic Devices or Brace: No Comments Mobility Comments Pt in bed finishing brief change with MANAGER PRODUCTION. Assisted pt in donning shoes and pt ast on edge of bed SBA. Pt pushed off the bed with both UEs and stood with FWW SBA. Slight LOB backwards when donnning gown. Pt caught hhimself. Returning back to bed pt required lifting assist with RLE Gait Assessment Gait Gait Assistance Required: Contact Guard Assist,1 Person Assist Distance (Feet) 220 Able to Maintain Weight Bearing Status Yes During Gait Assistive Devices Assistive Device Gait Belt,Front Wheeled Walker Orthotic/Prosthetic Devices or Brace: No Gait Deviations General Gait Pattern Antalgic,Decreased Stride Length,Decreased Feet Clearance,Flexed Trunk,Wide Based Gait Factors Limiting Gait Function Factors Limiting Gait Function Decreased Activity Tolerance, Decreased Sensation,Decreased Strength,Pain,Poor Balance Comments Gait Comments Pt used his orthotics and personal FWW and was able to ambulate in hallway around the loop ~220' CGA. Pt is very kyphotic but manages FWW appropriately. His gait mechanics are good and his pacing is appropriate. M5 PT-IP Objective Assessments Start: 03/25/19 17:01 Freq: NEEDED Status: Active Protocol: Document 03/25/19 14:58 AB (Rec: 03/25/19 17:17 AB [id number]) Orientation Orientation/Cognition Level of Alertness Alert Orientation Name,Place,Situation Safety Awareness Decreased Safety Awareness Gross Range of Motion Lower Extremity ROM Assessment Within Functional Limits Strength Lower Extremity Strength Assessment Bilaterally Impaired Hip 3+/5 Knee 3+/5 Sensation Assessment Sensation Gross Sensation Right LE Impaired,Left LE Impaired Light Touch Impaired Proprioception (Position) Impaired Sensation Description Numbness,Tingling,Pain Comments Sensation Comments stated only ~ 50-70% sensation on BLE from the knee down to his feet Muscle Tone Muscle Tone WNL Yes M6 PT-IP Treatment Start: 03/25/19 17:01 Freq: NEEDED Status: Active Protocol: Document 03/27/19 09:09 POOJA (Rec: 03/27/19 09:41 [id number]) Physical Therapy Treatment Exercises Exercises Ankle Pumps,Gluteal Sets,Quad Sets,Straight Leg Raises,Short Arc Quads Education Education Provided Safety M7 PT-IP Assessment and Plan Start: 03/25/19 17:01 Freq: NEEDED Status: Active Protocol: Document 03/27/19 09:09 POOJA (Rec: 03/27/19 09:41 [id number]) PT Summary Assessment and Plan Potential Rehabilitation Potential Fair Status of Condition at Evaluation Evolving Summary Impairments Pain,ROM,Strength,Balance, Coordination,Sensation,Tone, Cognition,Bed Mobility, Transfers,Gait,Activity Tolerance Assessment Summary Pt is SBA to Werner (with RLE in returning to bed) for bed mobility and transfers. Pt ambulated in hallway and around 180' stated he was getting tired but would like to go farther tomorrow. Pt returned to room and stood for 2 min while MANAGER PRODUCTION applied barrier cream to his back. Pt able to get himself back into bed and position with Werner for RLE. Left pt in bed with all needs w/in reach. Goals Bed Mobility Goal Standby Assistance Transfer Goal Standby Assistance,Front Wheeled Walker Gait Goal Standby Assistance,Front Wheel Walker Gait Distance 100 Days to Meet Goals 5 Frequency of Treatment Frequency Of Treatment Once a Day Treatment Plan Physical Therapy Treatment Plan Bed Mobility Training,Transfer Training,Gait Training, Therapeutic Exercise,Balance Retraining,Post Op Education, Discharge Planning,Hot or Cold Pack,Neuromuscular Re-ed, Coordination Retraining,Manual Therapy Other Recommendations and Next Treatment ambulation: pt stated that his [employer] nephew will bring shoes and FWW by 1pm 03/26 Th, no shoes at am tx and patient unsure when shoe will come at this time. Recommendations To Nursing Amount of Assist Needed 2 Person Assist Discharge Recommendations PT Discharge Recommendations Home with 03/09 Assist,Home Health,SNF Rehab Transportation Needs at Discharge Private Vehicle
--- NOTE | 2019-03-27 10:00 | OT.IPNOTE ---
Pt just finished with Pt and not wanting to do OT at this time.
[2019-03-27] MEDS: TAMSULOSIN 0.4 MG CAPSULE PO (10:10)
[2019-03-27] MEDS: METHADONE 10 MG TABLET PO ×2 (10:11→21:09)
[2019-03-27] MEDS: MORPHINE ER 30 MG TABLET PO ×2 (10:11→21:05)
[2019-03-27] MEDS: SPIRONOLACTONE 25 MG TABLET 12.5 MG PO (10:48)
[2019-03-27] MEDS: FUROSEMIDE 40 MG/4 ML VIAL IV (11:33)
--- NOTE | 2019-03-27 15:34 | PC.NURSE ---
Spoke with provider to clarify medications affecting blood pressure because patient is chronically hypotensive. Patient also requested to not take his lactulose this AM due to his loose stools. Dr. Glaser stated we could hold the Coreg and lactulose, but continue with all other medications. Patient has severe skin integrity issues per physical assessments. Open areas found on left inner thigh and redressed twice this AM due to them peeling off from moisture. Another dressing placed on his right buttock.
--- NOTE | 2019-03-27 15:52 | PM.PN.1 ---
Subjective Subjective Date Patient Seen: 03/27/19 Time Patient Seen: 11:00 Interval history: Mr. Delvin Parkinson is a 58 year old male with past medical history significant for congestive heart failure of unknown type, alcoholic cirrhosis, hypothyroidism, chronic bilateral lower extremity venous stasis, chronic hyponatremia, chronic pain and chronic opiate use who presented to the ER with worsening leg edema and wound weeping. The patient has improved lower extremity cellulitis. He remains on meropenem at this time. He denies complaints today including fever, chills. Currently he is being evaluated for SNF placement given care concerns from family. He denies complaints today other than having four bowel movements overnight and requests a reduction in his lactulose frequency. Exam Vital Signs (past 8 hours): - 03/27/19 09:00 03/27/19 10:46 03/27/19 14:00 Temperature 98.4 F 98.0 F Pulse Rate 98 H 97 H Respiratory Rate 16 Blood Pressure 94/55 L 104/70 Pulse Oximetry 93 93 98 Oxygen Delivery Method Room Air Oxygen Flow Rate 0 Narrative Exam Narrative: GENERAL APPEARANCE: Well-developed, chronically ill-appearing male, lying semi recumbent in bed in no acute distress SKIN: multiple bruises and ecchymoses, severe venous stasis changes of his lower extremity with weeping, scaly patches, with redness and warmth but slightly improved from previous documentation, no tenderness on palpation secondary to neuropathy HEENT: Normocephalic, pleural, sclera are anicteric, conjunctivae moist. EOMs intact without nystagmus, no rhinorrhea, oral pharynx appears pink and moist. NECK: Decreased range of motion, no thyromegaly no tenderness or masses on palpation CHEST: Kyphotic chest with scoliosis, leans to left, symmetrical movement, breathing nonlabored, no accessory muscle use. LUNGS: clear to auscultation bilaterally, no coarseness crackles or wheezing, no cough present CARDIOVASCULAR: regular rate and rhythm, no murmurs, gallops, rubs. Peripheral pulses not palpable due to 3+ bilateral edema ABDOMEN: Soft and nontender, no ascites appreciated, liver palpable right upper quadrant, active bowel tones MUSCULOSKELETAL: There was no tenderness or effusions noted. Muscle strength and tone were normal. EXTREMITIES: No cyanosis, clubbing. There is bilateral LE edema. NEUROLOGIC: Alert and oriented x 3. Normal affect. Strength is 5/5 upper extremities and 4/5 lower extremities Bilaterally, patient reports bilateral lower extremity neuropathy. PSYCH: Good eye contact, cooperative, stable affect and behavior Objective Labs Result Diagrams: 03/27/19 06:00 03/27/19 06:00 Labs: Laboratory Results - last 24 hr 03/27/19 03/27/19 06:00 06:00 WBC 7.6 RBC 3.26 L Hgb 9.8 L Hct 28.7 L MCV 88.1 MCH 30.1 MCHC 34.1 RDW 16.1 H Plt Count 265 Neut % (Auto) Not Reportable Lymph % (Auto) Not Reportable [place] % (Auto) Not Reportable Eos % (Auto) Not Reportable Baso % (Auto) Not Reportable Lymph # (Auto) Not Reportable [place] # (Auto) Not Reportable Baso # (Auto) Not Reportable Total Counted 100 Seg Neutrophils % 74.0 H Lymphocytes % (Manual) 16.0 L Monocytes % (Manual) 5.0 Eosinophils % (Manual) 5.0 H Neutrophils # (Manual) 5624 RBC Morphology See below Hypochromasia 2+ H Poikilocytosis 1+ H Anisocytosis 2+ H Sodium 125 L Potassium 3.4 Chloride 89 L Carbon Dioxide 33 H BUN 20 Creatinine 0.70 Estimated GFR > 60.0 BUN/Creatinine Ratio 28.6 H Glucose 70 Calcium 8.0 L Assessment & Plan Assessment & Plan narrative: Mr. Delvin Parkinson is a 58 year old male with past medical history significant for congestive heart failure of unknown type, alcoholic cirrhosis, hypothyroidism, chronic bilateral lower extremity venous stasis, chronic hyponatremia, chronic pain and chronic opiate use who presented to the ER with worsening leg edema and wound weeping who was admitted for cellulitis. 1. Acute cellulitis bilateral lower extremities, present on admission, active Patient with worsening redness and edema is bilateral lower extremities with increased pain and warmth on admission, this is slightly improved after IV antibiotics. Patient was continued on meropenem initially until cultures resulted and patient will be transitioned to ciprofloxacin, PO, starting tonight. Patient will follow in Wound Care. He can be discharged on ciprofloxacin for antipseudomonal coverage. Wound cultures did ultimately grow pseudomonas and it is sensitive to ciprofloxacin. - currently evaluating for SNF placement. 2. Chronic venous stasis bilateral lower extremities, present on admission, active Patient had previously had improving venous stasis at time of last admission [facility]. Patient subsequently treated at [facility] and told to discontinue Lasix and spironolactone. Continue patient's home regimen of furosemide 80 mg daily and spironolactone 25 mg daily. Wound care follow-up as an outpatient. 3. Congestive heart failure, unknown type, chronic, present on admission, active History of congestive heart failure, no echocardiogram has been obtained, there is no need for current echocardiogram as an inpatient. Patient with worsening venous stasis however no pulmonary complications, pulmonary edema and has been stable. Re-initiated the patient's home regimen of Lasix and spironolactone. 4. Alcoholic cirrhosis, chronic, stable. Patient is cognitively alert conversant and interactive. Patient was initially continued on lactulose TID, but did note excessive bowel movements today. Dose will be decreased to BID. 5. Chronic hyponatremia, present on admission, stable Sodium on admission is 126, baseline sodium is 123-124. No perceived benefit from reduction or elimination of diuretics. Diuretic therapy has been re-initiated and sodium level has been stable. Will monitor chemistries Consider fluid restriction, however that did not help him improve much either during his last admission. 6. Acquired Hypothyroidism, chronic, stable. continue patient's home regimen of levothyroxine 137 mcg daily. 7. Opiate dependence, present on admission, stable. Will continue the patient's home regimen of methadone 10 mg every 12 hours. Dispo: Remains inpatient. Plan for SNF placement. Plan for follow-up in wound care after discharge. Quality VTE Deep Vein Thrombosis/Pulmonary Embolism Present on Admission: No
--- NOTE | 2019-03-27 16:08 | CM.DPC ---
DCP: continued: [facility] window systems administrator [facility] was here this afternoon and assessed pt for admission to their facility. A pvt room is not an options. Confirmed with Ap and later with Rachel that they can accept pt it he will accept the double occupancy room. Received a call from pt at [phone]: he said that he spoke to someone who was visiting who said that [facility] had private rooms for all the rehab patients. Say Collazo is here and agrees to follow up with [facility] morrow same. She met briefly with pt to explain what she was doing. DCP team to review her notes tomorrow and follow. P: snf setting: [facility] has accepted as per above.
--- NOTE | 2019-03-27 16:18 | CM.DPC ---
Addendum entered by Vale Perez R.N. 03/27/19 16:46: Brannon/RN spoke with Roopa at [facility] and was informed that for their patient Rehab portion of their facility it is all single bed rooms. CM/RN sent clinicals and CM department will follow up with [facility] tomorrow to see if they will accept patient to facility. Vale Perez RN Original Note: DCP continued: EMR Reviewed: CM/RN called [facility] to see if they have private rooms. BRANNON/RN left a voice message for [facility] - admission coordinator. CM faxed Clinicals to [phone] for them to review for possible admission if they have private rooms. CM/RN spoke with patient and he stated that if [facility] doesn't have private rooms he is open to going to [facility] which he has been accepted to. PASRR completed. Vale Perez RN
[2019-03-27] MEDS: LACTULOSE 20 GM/30 ML SOLUTION 10 GM PO (18:42)
--- NOTE | 2019-03-27 18:47 | PC.NURSE ---
Addendum entered by Arlen Faustin R.N. 03/27/19 22:25: No stool yet this shift. Portion of brief against pt's back/buttocks is damp with serous fluid. Removed and inspected skin to lumbar region and buttocks. With pt on right side, noted active weeping of yellow serous fluid from skin at lumbar and buttocks. Allevyn dressings previously placed have loosened and dislodged. These were not replaced d/t continual moisture of skin. Barrier cream applied to buttocks. Brief changed with pillowcase placed against pt's skin to absorb. Pillowcase changed under pt's abdominal pannus. New small open area to left forearm. Cleansed with normal saline, dried and allevyn gentle border dressing placed. Upon closer inspection of pt's left upper back, noted no abraded or open areas as previously charted by this keno writer/runner. Simply a large patch of thickened skin. Benadryl po given for c/o itching and pt is actively scratching back and upper arms. Call from EDUCATION DEPARTMENT CHAIR, Jyotsna, who states pt now in afib with a controlled rate. BP 98/65 with HR 94. Hospitalist Rubén was informed. Coreg held as per hospitalist verbal order. No further orders. Pt conversant with staff. No complaints verbalized by patient. Encouraged pt to repositon in bed to allow buttocks and skin change in pressure. Waffle cushion replaced after total linen change. Noted three open areas in linear fashion to right upper thigh just under buttock. Unable to maintain dressing integrity d/t continual moisture and weeping of skin. Original Note: Pt awake, alert, conversant in bed. Appropriate mentation and conversation. Pt reports pain to BL LE's r/t neuropathy is manageable. Dressings in tact to BL LE's. Palpable pedal pulses BL. Scattered bruises to BL UE's. States desires lactulose following evening meal versus 2100. Pt is kyphotic. Superficial open area to back not on bony prominence with erythema noted to pt's back and buttocks. Allevyn dressing intact to buttock and left elbow. R.T. in to perform EKG. Tele as per Dr. Glaser.
[2019-03-27] MEDS: CIPROFLOXACIN 250 MG TABLET 750 MG PO (21:05)
[2019-03-27] MEDS: diphenhydrAMINE 25 MG TABLET PO (21:06)
[2019-03-27] MEDS: SODIUM CHLORIDE 0.9% FLUSH 10 ML IV (21:08)
[2019-03-28 00:40] VITALS: BP 94/54; PULSE 86; RESP 18; TEMP 36.7; O2SAT 98
[2019-03-28 03:00] VITALS: O2SAT 97
[2019-03-28 04:10] VITALS: BP 103/65; PULSE 92; RESP 18; TEMP 37.1; O2SAT 96
[2019-03-28] MEDS: LEVOTHYROXINE 137 MCG TABLET PO (06:15)
[2019-03-28] MEDS: MIDODRINE HCL 5 MG TABLET 10 MG PO (06:15)
[2019-03-28 06:49] LABS: Hematocrit 32.9 % (41-53); Hemoglobin 10.8 g/dL (13.5-17.5); Mean Corpuscular HGB Conc 32.9 % (30-36); Mean Corpuscular Hemoglobin 29.3 PG (26-34); Mean Corpuscular Volume 89.1 fL (80-100); Platelet Count 266 X10^3/uL (150-400); Red Blood Cell Count 3.69 X10^6/uL (4.5-5.9); Red Cell Distribution Width 15.8 % (11.6-14.8); White Blood Cell Count 7.1 X10^3/uL (4.5-11.0)
[2019-03-28 06:50] LABS: Add Manual Diff / Slide Review YES
[2019-03-28 06:57] LABS: BUN Creatinine Ratio 28.6 (6-22); Blood Urea Nitrogen 20 mg/dL (9-20); Calcium 8.2 mg/dL (8.4-10.2); Carbon Dioxide 36 mmol/L (22-32); Chloride 87 mmol/L (98-107); Estimated Glomerular Filt Rate > 60.0 mL/min (>60); Glucose 68 mg/dL (70-100); HEMOLYSIS < 15 (0-50); Sodium 126 mmol/L (137-145)
[2019-03-28 07:24] LABS: Neutrophils Absolute Manual 3266 /uL (3000-5900); Total Cells Counted 100
[2019-03-28 07:25] LABS: Hypochromasia 1+; Microcytosis 1+; Target Cells 1+
[2019-03-28 08:00] VITALS: BP 97/61; PULSE 88; RESP 17; O2SAT 97
--- NOTE | 2019-03-28 08:52 | CM.DPC ---
Addendum entered by Diane Summers R.N. 03/28/19 14:11: Called Pam, patient's [facility] rn case mgr, and left message with her letting her know that patient was discharged today to [facility] kenya Martinez Addendum entered by Diane Summers R.N. 03/28/19 11:49: Spoke to patient and let him know that [facility] can accept patient. Apologized to patient, for he had mentioned that he thought this rn case mgr was rude. Let him know that plan would need to be made today if [facility] couldn't accept him, since he is medically stable. Patient grateful that he can go to [facility]. Mahamed in admissions at [facility] reviewed med list and P.T. notes. Confirmed that they can bean picker patient at 1300. Patient was hoping for 1400, due to his diuretics, but [facility] unable to bean picker patient at 1400. Updated nurse, Debi, and white board updated. PASSR, signed med list, and prescriptions were all sent over to [facility]. Updated July at [facility] that patient will be going to [facility]. Original Note: DCP Cont: Spoke to Dr. Schreiber about patient. She would like to discharge patient today. Confirmed with July at [facility], that they can accept patient. Spoke to patient and he stated, he really wants to go to [facility] because they have private rooms. Rachel confirmed bean picker time of 11:00. Let patient know that it is unclear if [facility] can accept, and if hospitalist feels that patient is medically stable and [facility] accepts, this would be the appropriate plan. Did hear back from [facility]. Stated that they did not receive any information on patient, but had heard about this referral from [place]. Stated that they do have beds available, and do transport. Let him know that this rn case mgr will fax over information. Just faxed information over. Will follow up with them today, and will update July when it is confirmed that [facility] can accept. P: Patient is to be discharged today, but uncertain if it will be [facility] or [facility]. Will notify Pam, rn case mgr at [facility], upon discharge and when it is determined where he will go. Diane Summers RN/Road Machinery Inspector
[2019-03-28] MEDS: MORPHINE ER 30 MG TABLET PO (08:58)
[2019-03-28] MEDS: CIPROFLOXACIN 250 MG TABLET 750 MG PO (08:58)
[2019-03-28] MEDS: TAMSULOSIN 0.4 MG CAPSULE PO (08:59)
[2019-03-28] MEDS: SODIUM CHLORIDE 0.9% FLUSH 10 ML IV (08:59)
[2019-03-28] MEDS: diphenhydrAMINE 25 MG TABLET PO (08:59)
[2019-03-28] MEDS: SPIRONOLACTONE 25 MG TABLET 12.5 MG PO (08:59)
[2019-03-28] MEDS: METHADONE 10 MG TABLET PO (08:59)
[2019-03-28] MEDS: FUROSEMIDE 40 MG/4 ML VIAL IV (09:00)
[2019-03-28 09:16] VITALS: O2SAT 96
[2019-03-28 09:45] LABS: Hemoglobin A1C% w Est Avg Glu 4.5 % (4.0-6.0)
--- NOTE | 2019-03-28 11:13 | P.DS_ITS ---
History of Present Illness History of Present Illness Date Patient Seen: 03/24/19 Chief complaint: bilateral leg swelling Narrative: Written by Jose MASTERSON: Mr. Delvin Parkinson is a 58 year old male with past medical history significant for congestive heart failure of unknown type, alcoholic cirrhosis, hypothyroidism, chronic bilateral lower extremity venous stasis, chronic hyponatremia, chronic pain and chronic opiate use who presents to the ER with worsening leg edema and wound weeping. The patient has long history of venous stasis and on last admission was reported as actually doing better. The patient was subsequently transferred to [facility] related to pneumothorax and possible thoracic surgery when upon discharge on 03/15/2019 he was told to stop his spironolactone and Lasix and was told it may help his sodium level. The patient reports that he has experienced increasing leg pain, redness and edema since discharge reporting that the weeping started during his transfer back home. The patient denies complaints of fevers or chills, headaches or dizziness and has no nasal congestion or sore throat. He denies complaints of chest pain or palpitations and has no shortness of breath cough or wheezing. She denies abdominal pain, nausea or vomiting. Reports no difficulty stooling using lactulose 3 times daily for his liver cirrhosis. He denies urinary complaints. Upon arrival the patient is afebrile with temperature 97.5?, heart rate of 94, blood pressure 112/76, respirations 20 saturating 99% on room air. No imaging was completed and on laboratory analysis he has a white count of 9.7 hemoglobin 11.1, hematocrit of 33.6 and platelets 372. Continues to be hyponatremic with a sodium of 126 with a potassium of 4.2 and BUN of 10 and creatinine of 0.9. His nonfasting glucose is 84. His LFTs reveal a bilirubin of 0.9, AST of 25, ALT of 14 an elevated alkaline phosphatase of 135. Has lactic acid of 1.6 and p rocalcitonin is 0.10. Sed rate is 13 and CRP is elevated at 3.0. The patient she has 3 g of Ancef IV in the emergency department for cellulitis and is admitted to the medicine service for continuing evaluation treatment. Discharge Providers Provider Date of admission: 03/24/19 03:22 Discharge Date: 03/29/19 Consults: 03/24/19 05:47 Consult to Dietitian, Adult Routine Comment: Reason For Exam: Admission assessment 03/24/19 10:48 Consult to Wound Care Routine Comment: Consulting Provider: [facility] 03/25/19 10:06 Consult to Occupational Therapy Evaluate & Treat Comment: Physician Instructions: Evaluate and treat Consult to Physical Therapy Evaluate & Treat Comment: Physician Instructions: Evaluate and Treat 03/27/19 19:28 Consult to Dietitian, Adult Routine Comment: Reason For Exam: cirrhois Discharge provider: Martha Schreiber DO Summary Hospital Course Discharge Diagnosis: 1. Acute bilateral lower extremity and buttock cellulitis, present on admission. Resolving. 2. Acute on chronic venous stasis bilateral lower extremities, present on admission. Improving. 3. Congestive heart failure, unknown type, chronic, present on admission. Stable. 4. Alcoholic cirrhosis, chronic, present on admission. Stable. 5. Chronic hyponatremia, present on admission. Stable. 6. Hypothyroidism, chronic, present on admission. Stable. 7. Chronic pain with opiate dependence, present on admission. Stable. Hospital Course: Delvin Parkinson is a 58 year old male with past medical history significant for congestive heart failure of unknown type, alcoholic cirrhosis, hypothyroidism, chronic bilateral lower extremity venous stasis, chronic hyponatremia, chronic pain and chronic opiate use who presented to the ER with worsening leg edema and wound weeping who was admitted for cellulitis. 1. Acute bilateral lower extremity and buttock cellulitis, present on admission. Resolving. -Patient presented with worsening bilateral lower extremity erythema and edema with increased pain and warmth on admission. -Wound cultures positive for Pseudomonas. -Continued meropenem and switched to ciprofloxacin 500 mg twice daily for 6 additional days to complete 10 days total of antibiotics. -Continue frequent turns and buttock offloading -Continue follow-up with outpatient [facility]ound Care [facility]. 2. Acute on chronic venous stasis bilateral lower extremities, present on admission. Improving. -Patient previously had improving venous stasis at time of last admission [facility]. Patient subsequently transferred and treated at [facility] for unrelated problem and told to discontinue diuretics including furosemide and spironolactone resulting and worsening venous stasis. -Restarted diuretic regimen as below. -Continue follow-up with outpatient Wound Care Clinic. 3. Congestive heart failure, unknown type, chronic, present on admission. Stable. -Does not represent CHF exacerbation. -History of congestive heart failure of unknown type. No echocardiogram has been obtained and there is no need for current echocardiogram as an inpatient. -Patient with worsening venous stasis due to diuretic, however, no pulmonary complications or pulmonary edema. -Re-initiated the patient's furosemide and spironolactone at lower doses as below. 4. Alcoholic cirrhosis, chronic, present on admission. Stable. -Patient is cognitively alert conversant and interactive. -Continued lactulose 10 g up to 3 times daily and titrated effect of 2-3 bowel movements a day. -Continued furosemide 40 mg daily and spironolactone 50 mg daily. -Continued low-sodium diet < 2g a day and fluid restriction of 2L a day including all fluid. 5. Chronic hyponatremia, present on admission. Stable. -Sodium on admission is 126 and is stable. Baseline sodium level is 123-124. -No perceived benefit from reduction or elimination of diuretics. Diuretic therapy has been re-initiated at lower doses as above. -Continued fluid restriction of 2L a day including all fluid for alcoholic liver cirrhosis as above. 6. Hypothyroidism, chronic, present on admission. Stable. -Continued home levothyroxine 137 mcg daily. 7. Chronic pain with opiate dependence, present on admission. Stable. -Continued home methadone 10 mg every 12 hours. Exam Vital Signs (past 8 hours): - 03/28/19 04:10 03/28/19 08:00 03/28/19 09:16 Temperature 98.7 F Pulse Rate 92 H 88 Respiratory Rate 18 17 Blood Pressure 103/65 97/61 Pulse Oximetry 96 97 96 Oxygen Delivery Method Room Air Oxygen Flow Rate 0 Narrative Exam Narrative: General: Older gentleman lying in bed and in no acute distress, appears older than stated age and chronically ill, appropriately interactive HEENT: Normocephalic, atraumatic. External ears without defect. Pupils equal, round, and reactive to light. Anicteric sclerae, moist conjunctivae, and no lid lag. Poor dentition. Neck: Supple with full range of motion. No jugular venous distension. No lymphadenopathy or thyromegaly. Cardiovascular: Regular rate and rhythm without murmurs, rubs, or gallops appreciated. Pulmonary: Clear to auscultation bilaterally without crackles, wheezes, or rhonchi. Normal respiratory effort with no use of accessory muscles. Abdomen: Soft, bowel sounds present, nontender, nondistended. No hepatosplenomegaly or masses appreciated. Extremities: No clubbing or cyanosis. Bilateral lower extremity venous stasis with dermatitis and reynaldo skin discoloration. Chronic buttock and lower extremity wounds no longer draining purulent material and appear to be healing slowly. Skin: Normal temperature, turgor, and texture; no rash, ulcers, or subcutaneous nodules appreciated. Neurological: Cranial nerves grossly intact. Psychiatric: Normal mood and affect. Alert and oriented to person, place, and time. Objective Labs Result Diagrams: 03/28/19 06:40 03/28/19 06:40 Labs: Laboratory Results - last 24 hr 03/28/19 03/28/19 03/28/19 06:40 06:40 06:40 WBC 7.1 RBC 3.69 L Hgb 10.8 L Hct 32.9 L MCV 89.1 MCH 29.3 MCHC 32.9 RDW 15.8 H Plt Count 266 Neut % (Auto) Not Reportable Lymph % (Auto) Not Reportable [place] % (Auto) Not Reportable Eos % (Auto) Not Reportable Baso % (Auto) Not Reportable Lymph # (Auto) Not Reportable [place] # (Auto) Not Reportable Baso # (Auto) Not Reportable Total Counted 100 Seg Neutrophils % 44.0 Band Neutrophils % 2.0 L Lymphocytes % (Manual) 21.0 L Atypical Lymphs % 5.0 H Monocytes % (Manual) 9.0 Eosinophils % (Manual) 14.0 H Basophils % (Manual) 2.0 H Metamyelocytes % 2.0 H Myelocytes % 1.0 H Neutrophils # (Manual) 3266 RBC Morphology See below Hypochromasia 1+ H Microcytosis 1+ H Target Cells 1+ H Sodium 126 L Potassium 4.0 Chloride 87 L Carbon Dioxide 36 H BUN 20 Creatinine 0.70 Estimated GFR > 60.0 BUN/Creatinine Ratio 28.6 H Glucose 68 L Hemoglobin A1c 4.5 Calcium 8.2 L Discharge Plan Discharge Plan Patient Disposition: [facility] Transfer to: [facility] Under care of provider: head start director Discharge comment: Follow-up with wound care clinic as an outpatient Discharge orders & Medications Prescriptions: New furosemide 40 mg Tablet 40 mg PO DAILY Qty: 30 RF: 0 midodrine 5 mg Tablet 10 mg PO 0600,1200,1800 Qty: 90 RF: 0 bisacodyl 10 mg Suppository 10 mg AL DAILY PRN (Reason: Constipation) Qty: 10 RF: 0 docusate sodium [DOK] 100 mg Capsule 100 mg PO BID PRN (Reason: Constipation) Qty: 60 RF: 0 ciprofloxacin HCl 500 mg tablet 500 mg PO BID Qty: 12 RF: 0 methadone 10 MG tablet 10 mg PO Q12H Qty: 10 RF: 0 morphine 30 mg tablet 15 mg PO Q8H PRN (Reason: Pain, Severe) Qty: 10 RF: 0 Continued carvedilol [Coreg] 6.25 MG tablet 6.25 mg PO BID Qty: 0 RF: 0 methocarbamol 500 mg Tablet 500 mg PO Q6H Qty: 10 RF: 0 levothyroxine 137 mcg tablet 137 mcg PO DAILY RF: 0 triamcinolone acetonide 0.1 % ointment 1 applic topical DIRECTED RF: 0 lactulose [Enulose] 10 gram/15 mL solution 1 dose PO DIRECTED RF: 0 Changed spironolactone 100 mg tablet 50 mg PO DAILY Qty: 0 RF: 0 Diet/Activity/Treatments Diet: Diet as Tolerated and Low-sodium Diet comment: Fluid restriction < 2L/day all fluid Activity: Activity as tolerated with forward wheeled walker and physical and occupational therapy [facility] Rehab type: Physical therapy and Occupational therapy Visit Report/Discharge Packet Instructions: DI for Cellulitis -- Adult Discharges patient from system. Discharge Date/Time: 03/28/19 13:50 Quality VTE Deep Vein Thrombosis/Pulmonary Embolism Present on Admission: No
--- NOTE | 2019-03-28 13:46 | PC.NURSE ---
Transfer to SNF: IV dc'd intact. Tele dc'd. Retrieved belongings from safe and home meds from pharmacy and given back to patient. All personal belongings collected and sent with patient at discharge. Assisted into wheelchair. Transfer packet given to transport staff, including scripts for Methadone and Morphine. Wheeled out to vehicle by transport staff (left approx. [id number]). Report given to Lara at [facility].
== END 2019-03-28 13:50 | DRG 603 ==
LOC: ED 03-24 03:13 → AC 03-24 03:23
PROVIDERS: Internal Medicine; Admitting Provider Nurse Practitioner Adult Health; Emergency Provider Emergency Medicine; Referring Provider Emergency Medicine; Visit Provider Nurse Practitioner Adult Health
DX: L03.116 Cellulitis of left lower limb (principal); E87.1 Hypo-osmolality and hyponatremia; L97.928 Non-pressure chronic ulcer of unspecified part of left lower leg with other specified severity; L97.918 Non-pressure chronic ulcer of unspecified part of right lower leg with other specified severity; L03.115 Cellulitis of right lower limb; L89.152 Pressure ulcer of sacral region, stage 2; I87.8 Other specified disorders of veins; I50.9 Heart failure, unspecified; K70.30 Alcoholic cirrhosis of liver without ascites; Z79.891 Long term (current) use of opiate analgesic; F17.200 Nicotine dependence, unspecified, uncomplicated; E03.9 Hypothyroidism, unspecified; G89.29 Other chronic pain; I95.89 Other hypotension; B96.5 Pseudomonas (aeruginosa) (mallei) (pseudomallei) as the cause of diseases classified elsewhere
CPT/HCPCS: 36415; 80048; 80053; 82550; 83036; 83605; 84145; 85025; 85610; 85651; 86140; 87040; 87070; 87075; 87077; 87186; 87205; 93005; 96360; 97116; 97162; 97166; 97530; 99283; 99284; J0690; J1940; J2185

== ENCOUNTER → 2019-04-03 10:14 | Outpatient (CLI) | payer MEDICARE, MEDICAID, SELFPAY ==
[2019-03-24 04:48] VITALS: BMI 25.7
== END ==
PROVIDERS: PCP Family Medicine; Referring Provider Internal Medicine; Visit Provider Family Medicine
DX: I87.2 Venous insufficiency (chronic) (peripheral) (principal); L97.821 Non-pressure chronic ulcer of other part of left lower leg limited to breakdown of skin; L97.811 Non-pressure chronic ulcer of other part of right lower leg limited to breakdown of skin; L97.421 Non-pressure chronic ulcer of left heel and midfoot limited to breakdown of skin; G60.9 Hereditary and idiopathic neuropathy, unspecified
CPT/HCPCS: 97597; 99203; 99214

== ENCOUNTER → 2019-04-10 13:31 | Outpatient (CLI) | payer MEDICARE, MEDICAID, SELFPAY ==
[2019-03-24 04:48] VITALS: BMI 25.7
== END ==
PROVIDERS: PCP Family Medicine; Referring Provider Physician Assistant; Visit Provider Family Medicine
DX: I87.2 Venous insufficiency (chronic) (peripheral) (principal); R60.0 Localized edema; I73.9 Peripheral vascular disease, unspecified; G60.9 Hereditary and idiopathic neuropathy, unspecified; Z72.0 Tobacco use
CPT/HCPCS: 99212